=== PATIENT | male | born 1950 | race Caucasian/White ===

== ENCOUNTER 2024-03-20 01:29 | Inpatient (IN) | payer MEDICARE, MEDICAID, SELFPAY ==
[2024-03-19 17:31] VITALS: BP 119/71
[2024-03-19 17:58] LABS: % Basophils 0.2 % (0-2); % Eosinophils 0.1 % (0-6); % Immature Granulocytes 0.6 % (0-0.5); % Lymphocytes 5.4 % (20.5-51.1); % Monocytes 3.4 % (1.7-9.3); % Neutrophils 90.3 % (42.2-75.2); Absolute Immature Granulocytes 0.1 10^3/uL (0-0.05); Absolute Monocytes 0.6 10^3/uL (0.1-0.6); Absolute Neutrophils 16.8 10^3/uL (1.4-6.5); Hematocrit 30.2 % (39.0-52.0); Hemoglobin 9.9 g/dL (13.0-18.0); Mean Corp Hgb Conc. 32.8 g/dL (33.0-37.0); Mean Corpuscular Hgb 24.3 pg (27.0-31.0); Mean Platelet Volume 10.2 fL (7.4-10.4); Nucleated Red Blood Cells % 0 % (-); Platelet Count 265 10^3/uL (130-400); Red Blood Cell Count 4.08 10^6/uL (4.70-6.10); Red Cell Dist. Width 21.5 % (11.5-14.5); White Blood Cell Count 18.6 10^3/uL (4.8-10.8)
[2024-03-19 18:04] LABS: ALT (SGPT) 14 U/L (0-50); AST (SGOT) 23 U/L (17-59); Albumin 3.9 g/dl (3.5-5.0); Alkaline Phosphatase 70 U/L (38-126); Blood Urea Nitrogen 33 mg/dl (9-20); Calcium 9.5 mg/dl (8.4-10.2); Carbon Dioxide 26 mmol/L (22-30); Chloride 104 mmol/L (98-107); Glucose 123 mg/dl (70-99); Lactic Acid 1.5 mmol/L (0.7-2.0); Lipase 18 U/L (23-300); Potassium 3.7 mmol/L (3.5-5.1); Sodium 137 mmol/L (135-145); Total Bilirubin 1.1 mg/dl (0.2-1.3); Total Protein 6.8 g/dl (6.3-8.2); eGFR > 60.00
[2024-03-19 20:12] VITALS: BMI 23.7
[2024-03-19] MEDS: NSS 1000 IV (20:14)
[2024-03-19] MEDS: OMNIPAQUE 50 ML PO (20:15)
[2024-03-19 20:24] VITALS: BP 129/79
--- NOTE | 2024-03-19 20:32 | ED.GENMED ---
History of Present Illness
General
Chief Complaint: Abdominal Pain
Source: patient
Exam Limitations: none
Time Seen by Provider: 03/19/24 19:52
History of Present Illness
History of Present Illness:
This is a 74 year old male that comes in with c/o RLQ pain. State that he has had RLQ pain for the last year. States that it has been going on since last Labor day a year ago. States that he has lost weight from 194 to 169. States that he is set up
at [facility] for surgery for his Achalasia. States that today the pain in the right lower abd got worse that he was unable to get OOB. States that he was Constipated and took MOM and he did have a BM. Denies any fever, chills, chest pain, SOB, nausea,
vomiting, diarrhea, headache, dizziness, urinary burning.
Past History
Past History
ED Past Medical History: Psychiatric (Depression)
ED Past Surgical History: Other (surgery for Achalasia, )
Social History
Tobacco: Non-smoker
Alcohol: Occasional
Personal:
Living: with family
Review of Systems
Review of Systems
All Other Systems: ROS reviewed and negative except as documented in HPI and ROS
Constitutional: Reports no symptoms; Denies fever or chills
EENT: Reports no symptoms
Respiratory: Reports no symptoms; Denies cough or trouble breathing
Cardiac: Reports no symptoms; Denies chest pain
ABD/GI: Reports abdominal pain; Denies nausea, vomiting or diarrhea
: Reports no symptoms; Denies dysuria, frequency or urgency
Musculoskeletal: Reports no symptoms
Skin: Reports no symptoms
Neurological: Reports no symptoms; Denies dizzy or headache
Psychiatric: Reports no symptoms
Phy Exam
General Physical Exam
General Presentation: no apparent distress
General age: appears stated age
General Skin: warm and dry
General Habitus: elderly
General Mental: alert
General Hydration: dry mucous membranes
ENT Exam
ENT Exam: TM's normal, pharynx normal and neck supple
Eye Exam
Eye Exam: EOMI
Cardiovascular Exam
Cardiovascular Exam: regular rate/rhythm and normal peripheral pulses
Pulmonary Exam
Pulmonary Exam: lungs clear, no respiratory distress, no rales, chest non tender, no crackles, no rhonchi, no wheezing and no cough
Gastrointestinal Exam
Gastrointestinal Exam: soft, no organomegaly, no pulsatile mass, non distended, tender (RLQ tenderness with palpation) and other (Hypoactive bowel sounds)
Musculoskeletal Exam
Musculoskeletal Exam: full ROM and no edema
Skin Exam
Skin Exam: warm/dry, no rash, no petechia and pallor
Psychiatric Exam
Psychiatric Exam: normal mood/affect
Course
Orders/Labs/Results
Orders:
Orders
03/19/24 17:41
Type+Screen Urgent
Complete Blood Count/With Diff Urgent
Comprehensive Metabolic Panel Urgent
Lactic Acid Urgent
Lipase Urgent
03/19/24 20:05
CT Abd/pel W Iv And Oral Contr Urgent
Comment:
Reason For Exam: Generalized abd pain
0.9% Sodium Chloride 1000 ml [Nss] 1,000 ml IV BOLUS
Iohexol [Omnipaque] See Protocol PO NOW STA
03/19/24 20:06
Urinalysis Reflex To Culture Urgent
Abnormal Lab Results
03/19/24
17:41
WBC 18.6 H 10^3/uL
(4.8-10.8)
RBC 4.08 L 10^6/uL
(4.70-6.10)
Hgb 9.9 L g/dL
(13.0-18.0)
Hct 30.2 L %
(39.0-52.0)
MCV 74.0 L fL
(80.0-94.0)
MCH 24.3 L pg
(27.0-31.0)
MCHC 32.8 L g/dL
(33.0-37.0)
RDW 21.5 H %
(11.5-14.5)
Abs Immat Gran (auto) 0.1 H 10^3/uL
(0-0.05)
Absolute Neuts (auto) 16.8 H 10^3/uL
(1.4-6.5)
Absolute Lymphs (auto) 1.0 L 10^3/uL
(1.2-3.4)
Immature Gran % 0.6 H %
(0-0.5)
Neutrophils % 90.3 H %
(42.2-75.2)
Lymphocytes % 5.4 L %
(20.5-51.1)
BUN 33 H mg/dl
(9-20)
Glucose 123 H mg/dl
(70-99)
Lipase 18 L U/L
(23-300)
03/19/24 17:41
03/19/24 17:41
Leukocytosis, H/H low Anemia, Dehydration. Glucose nonfasting. Lipase low. Lactic acid normal at 1.5
Vital Signs
Initial and Last Documented VS:
Initial Vital Signs
Temp Pulse Resp BP Pulse Ox
100.3 F 104 20 119/71 96
03/19/24 17:31 03/19/24 17:31 03/19/24 17:31 03/19/24 17:31 03/19/24 17:31
Last Documented Vital Signs
Temp Pulse Resp BP Pulse Ox
100.3 F 98 19 143/76 94
03/19/24 17:31 03/19/24 22:00 03/19/24 22:00 03/19/24 22:00 03/19/24 22:00
MDM/Problems Addressed
Differential Diagnosis Includes:
Appendicitis,
MDM/Problems Addressed:
This is a 73 year old male that comes in with c/o RLQ pain. States that he has had pain for a year but today the pain got worse.
Will get labs, CT scan, IV fluids
CT cont- evidence for small bowel obstruction, as administered oral contrast has reached the cecum. There is no evidence of free intraperitoneal air. There is no evidence of pneumatosis. There is no evidence for portal vein gas. Cholelithiasis,
Small foci of air within the gallbladder lumen are likely related to gallstones. NO evidence for biliary ductal dilation. Small fat-containing umbilical hernia which also contains fluid, but no evidence for bowel within this umbilical hernia. 2mm
nephrolith within the mid to lower right kidney. 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 There is fusion of the L4-5 disc space, which may be postsurgical.
Back into see patient. Will admit and start on IV antibiotic.
Chronic conditions affecting care:
achalasia
Acute Exacerbation and/or Progression of Chronic Illness:
NA
*Radiology
Radiology exam reviewed: radiology read reviewed (CT-As described, findings in the rectum and distal sigmoid colon suggesting colitis, and stercoral colitis would be the leading consideration. Infectious colitis could also have this appearance.
Ischemic colitis could be considered, but felt to be less likely. There is a tortuous and elongated ), all reviewed NAD by ED Provider (CT cont-elongated sigmoid coln which extends into the anterior abd, with distention of this sigmoid coln with
stool and air, measuring up to 106cm in transverse dimension. There is also tortuosity of the sigmoid colon within the lower abd as it extends toward the descending colon, but no evidence) and other (CT cont-no evidence of a focal narrowing to
suggest sigmoid volvulus. Distention of the sigmoid colon is left to most likely be on the basis of stool. Thickened small bowel loops in the left pelvis, left to most likely be reactive enteritis adjacent to the sigmoid colon and rectum. There is
no )
*Pulse Oximetry
Patient hypoxic: no
*EKG
Interpreted by ED Provider?: NA
Rate: EKG- N/A
*Staffing Account Manager Interpretation
Rate: normal
Heart Rate: 92
Rhythm: sinus
*Critical Care Note
Total Time (30-74mins, 75-104mins- exclusive of procedures): Not Applicable
ED Attending Note
-
Portions of this chart may have been created with voice recognition software.� Occasional wrong word or��sound alike� substitutions may have occurred due to the inherent limitations of voice recognition software.
Discharge Plan
Departure
Patient Disposition: Admit
Date of Disposition: 03/19/24
Time of Disposition: 23:48
Admit to: Med/Surg
Presentation/result/management discussed w/ accepting MD/DO: Hospitalist
Patient with high blood pressure during this ER visit?: Yes
Condition: Good
Covid-19: Not Applicable
Discharge Problem:
Abdominal pain, Colitis
Prescriptions:
No Action
sertraline 100 mg Tablet
100 mg PO HS
Theragen Tablet
1 tab PO DAILY
lorazepam 0.5 mg Tablet
0.5 mg PO HS
mirtazapine 30 mg Tablet
30 mg PO DAILY
cholecalciferol (vitamin D3) [Vitamin D3] 10 mcg (400 unit) Tablet
10 mcg PO DAILY
dextroamphetamine-amphetamine 25 mg capsule,extended release 24hr
25 mg PO DAILY
quetiapine 400 mg Tablet
400 mg PO HS
esomeprazole magnesium 20 mg Tablet,Delayed Release (Dr/Ec)
20 mg PO DAILY
Referrals:
Juan Daniel Torres MD [Family Provider] -
Interventions
Interventions:
*Risk Screen - Suicide Last Done: 03/19/24 17:31
*General Assessment Last Done: 03/19/24 17:31
*Neglect/Abuse Screening Last Done: 03/19/24 17:31
ED- Fall Risk Assessment Last Done: 03/19/24 20:13
DM-Rhwqlj-Mrhjzrehcz Assessment Last Done: 03/19/24 20:25
Discharge Date and Time
Print Language: AUSTRALIAN
[2024-03-19 21:00] VITALS: BP 134/70
[2024-03-19 22:00] VITALS: BP 143/76
[2024-03-19 23:00] VITALS: BP 130/71
[2024-03-20] VITALS (17 sets, daily range): BP systolic 116–143; BP diastolic 68–87; PULSE 94–100; O2SAT 94
[2024-03-20] MEDS: ZOSYN 50 IV ×5 (00:09→23:44)
[2024-03-20] MEDS: DILAUDID 0.5 MG IV (00:25)
--- NOTE | 2024-03-20 01:08 | HPS.HSE ---
Addendum entered and electronically signed by Kar Herrmann DO 03/20/24 05:13:
Attempted disimpaction in the ED. Rectal exam with no stool appreciated in the vault - impaction too proximal to be affected.
Continue bowel regimen, abx, etc and follow for clinical results.
Original Note:
Family Physician
-
Family Physician: Juan Daniel Torres
Chief Complaint
-
Abd Pain
History of Present Illness
Patient is a 73y M with PMH significant for achalasia and depression who presents to ED complaining of abdominal pain. Patient states that he has had his current episode of lower abdominal pain for about 4-5 days. He states that he has had
significant difficulty having a BM. He started taking MOM twice daily several days ago and has had a few, small, liquid stools since. He states that he had a very small amount of soft stool yesterday. His pain has gradually increased in the past
several days. He denies any fevers / chills. He has noted no blood in the stool. No urinary complaints. He states that he had similar symptoms about one year ago that were alleviated by disimpaction.
Patient has achalasia and is followed at [facility] where he is tentatively scheduled for a surgical procedure in April.
Medical History
Past Medical History
Past Medical History: Reports Other
Additional Past Medical History:
Achalasia
GERD
Depression
Past Surgical History: Reports None and Other
Social History
Tobacco: Non-smoker
Alcohol: Occasional (Rare)
Drug: None
Family History
Family History: Not pertinent
Allergies / Home Medications
Allergies reflects when Allergies were last updated in [email or web address].
Home Medications with original date entered in [email or web address]
Allergy/Medication List:
Allergies
Allergy/AdvReac Type Severity Reaction Status Date / Time
No Known Allergies Allergy Verified 03/19/24 20:12
Home Medications
cholecalciferol (vitamin D3) 10 mcg (400 unit) tablet (Vitamin D3) 10 mcg PO DAILY 03/19/24
dextroamphetamine-amphetamine ER 25 mg 24hr capsule,extend release 25 mg PO DAILY 03/19/24
esomeprazole magnesium 20 mg tablet,delayed release 20 mg PO DAILY 03/19/24
lorazepam 0.5 mg tablet 0.5 mg PO HS 03/19/24
mirtazapine 30 mg tablet 30 mg PO DAILY 03/19/24
quetiapine 400 mg tablet 400 mg PO HS 03/19/24
sertraline 100 mg tablet 100 mg PO HS 03/19/24
therapeutic multivitamin 1 tab PO DAILY 03/19/24
Review of Systems
-
History Source: Patient
A 12 point ROS was completed and negative except as noted: Yes
Constitutional: Denies Fever or Chills
Respiratory: Denies Cough or Trouble Breathing
Cardiac: Denies Chest Pain or Palpitations
Abdomen/GI: Reports Abdominal Pain and Constipated; Denies Nausea, Vomiting, Bloody Stools or Black Stools
: Denies Dysuria, Frequency or Flank Pain
Musculoskeletal: Denies Joint Pain or Edema
Neurological: Reports Weakness; Denies Dizzy or Headache
Psych: Reports Depression and Anxiety
Physical Exam
Vital Signs
Vital Signs
Temp Pulse Resp BP Pulse Ox
100.3 F 94 26 136/75 91
03/19/24 17:31 03/20/24 00:00 03/20/24 00:00 03/20/24 00:00 03/20/24 00:00
Physical Exam
General: Other (Thin, frail 73y M in no acute distress.)
HEENT: Moist mucous membranes and PERRLA
Respiratory: Clear; No Wheezes, Rales or Rhonchi
Cardiac: S1/S2 and Regular Rhythm; No Murmur
GI: Soft, Non Distended, Normal Bowel Sounds and Other (Umbilical hernia that feels firm but is not tender. Patient states unchanged. Pos tenderness lower abdomen with voluntary guarding. )
Musculoskeletal: No Clubbing, No Cyanosis and No Edema
Neuro: AO x 3
Laboratory Results
-
03/19/24 17:41
03/19/24 17:41
Laboratory Results
Lactic Acid 1.5 mmol/L (0.7-2.0) 03/19/24 17:41
Total Bilirubin 1.1 mg/dl (0.2-1.3) 03/19/24 17:41
AST 23 U/L (17-59) 03/19/24 17:41
ALT 14 U/L (0-50) 03/19/24 17:41
Alkaline Phosphatase 70 U/L (38-126) 03/19/24 17:41
Lipase 18 U/L (23-300) L 03/19/24 17:41
Impression/Plan
-
A/P: Patient is a 73y M with PMH significant for depression and achalasia who presents to ED complaining of abdominal pain x 5 days.
Stercoral Colitis
- Admit for further evaluation and treatment.
- Will attempt disimpaction in the ED and follow for results.
- Bowel regimen including daily MiraLax and enemas.
- IVF support, IV abx for now.
- Follow for clinical improvement.
Achalasia
GERD
- No current / acute symptoms in this regard.
- Continue daily PPI.
- Follow-up with team at [facility] as planned after discharge.
Depression
- Stable. Continue majority of psychotropic medications during hospital stay.
DVT Prophylaxis: SCDs
Code Status: Full
[2024-03-20] MEDS: LR 1000 IV ×3 (01:50→23:44)
[2024-03-20] MEDS: ATIVAN 0.5 MG PO ×2 (02:42→21:54)
[2024-03-20 06:24] LABS: Hematocrit 27.4 % (39.0-52.0); Mean Corp Hgb Conc. 32.8 g/dL (33.0-37.0); Mean Corpuscular Hgb 24.2 pg (27.0-31.0); Mean Corpuscular Volume 73.7 fL (80.0-94.0); Mean Platelet Volume 9.9 fL (7.4-10.4); Platelet Count 247 10^3/uL (130-400); Red Blood Cell Count 3.72 10^6/uL (4.70-6.10); Red Cell Dist. Width 22.2 % (11.5-14.5); White Blood Cell Count 16.6 10^3/uL (4.8-10.8)
[2024-03-20 06:34] LABS: Blood Urea Nitrogen 29 mg/dl (9-20); Calcium 8.8 mg/dl (8.4-10.2); Carbon Dioxide 23 mmol/L (22-30); Chloride 104 mmol/L (98-107); Estimated Creatinine Clearance 66 ml/min; Glucose 110 mg/dl (70-99); Potassium 3.5 mmol/L (3.5-5.1); Sodium 136 mmol/L (135-145); eGFR > 60.00
[2024-03-20 07:28] LABS: TSH Reflex To Free T4 2.22 uIU/ml (0.47-4.68)
[2024-03-20] MEDS: NSS (PRESERVATIVE FREE) 10 ML IV (08:31)
[2024-03-20] MEDS: MIRALAX 17 GRAMS PO (08:31)
[2024-03-20] MEDS: PROTONIX IV 40 MG IV (08:31)
[2024-03-20] MEDS: COLACE 100 MG PO (08:31)
--- NOTE | 2024-03-20 08:40 | EDRN ---
Pt received from previous RN AAOx3, VSS, IVF infusing, IV patent in R arm, lung sounds clear, active bowel sounds, no edema, NSR with PVCs, AM meds administered. Menu and phone provided for pt to order breakfast. Able to make needs known, call [facility]
within reach.
--- NOTE | 2024-03-20 12:21 | W.PN.HOSP.TC ---
Today's Communication/Plan
-
Monitor vital signs see plan
Continue laxatives
Trial of clears
Continue antibiotics
Nonbillable note
Assessment / Plan
Assessment / Plan
General: Other (Thin, frail 73y M in no acute distress.)
HEENT: Moist mucous membranes and PERRLA
Respiratory: Clear; No Wheezes, Rales or Rhonchi
Cardiac: S1/S2 and Regular Rhythm; No Murmur
GI: Soft, Non Distended, Normal Bowel Sounds and Other (Umbilical hernia that feels firm but is not tender. Patient states unchanged. Pos tenderness lower abdomen with voluntary guarding. )
Musculoskeletal: No Clubbing, No Cyanosis and No Edema
Neuro: AO x 3
Sepsis secondary to stercoral Colitis
ER physician Attempted disimpaction in the ED however stool appears to be more proximal
- Bowel regimen including daily MiraLax and enemas.
- IVF support, IV abx for now.
- Follow for clinical improvement.
Trial of clears
Achalasia
GERD
- No current / acute symptoms in this regard.
- Continue daily PPI.
- Follow-up with team at [facility] as planned after discharge.
Umbilical hernia
Patient has been following up with physician at [facility]
Depression
- Stable. Continue majority of psychotropic medications during hospital stay.
DVT Prophylaxis: SCDs
Code Status: Full
Anticipated Discharge: 24 - 48 hours
Subjective/Interval History
-
Date of Service: March 20, 2024
Denies nausea
Objective Data
-
Labs:
Laboratory Results
03/20/24
05:41
WBC 16.6 H
Hgb 9.0 L
Hct 27.4 L
Plt Count 247
Sodium 136
Potassium 3.5
Chloride 104
Carbon Dioxide 23
BUN 29 H
Creatinine 1.0
Glucose 110 H
Calcium 8.8
Vital Signs:
Vital Signs
Temp Pulse Resp BP Pulse Ox
99.4 F 97 24 128/77 94
03/20/24 07:08 03/20/24 10:00 03/20/24 10:00 03/20/24 10:00 03/20/24 11:00
I&O
03/19/24 03/20/24 03/21/24
06:59 06:59 06:59
Intake Total 450 / 450
Output Total 300 / 300
Balance 150 / 150
[2024-03-20] MEDS: COLACE PO (20:16)
[2024-03-20] MEDS: SENOKOT PO (21:00)
[2024-03-20] MEDS: ZOLOFT 100 MG PO (21:24)
[2024-03-20] MEDS: SEROQUEL 400 MG PO (21:24)
[2024-03-20] MEDS: REMERON 30 MG PO (21:54)
--- NOTE | 2024-03-21 01:14 | PTCARENOTE ---
pt refused tap water enema and all bowel regimen medications. continues to have bowel movements on BSC
pt with unsteady gait, getting up without ringing call [facility]. bed alarm activated for safety.
pt updated on plan of care
[2024-03-21 03:14] VITALS: BMI 24.0
[2024-03-21] MEDS: ZOSYN 50 IV ×3 (05:36→17:46)
[2024-03-21 06:51] LABS: % Basophils 0.2 % (0-2); % Eosinophils 0.8 % (0-6); % Immature Granulocytes 0.5 % (0-0.5); % Monocytes 6.5 % (1.7-9.3); Absolute Eosinophils 0.1 10^3/uL (0-0.7); Absolute Immature Granulocytes 0.1 10^3/uL (0-0.05); Absolute Lymphocytes 0.8 10^3/uL (1.2-3.4); Absolute Monocytes 0.8 10^3/uL (0.1-0.6); Absolute Neutrophils 9.8 10^3/uL (1.4-6.5); Hematocrit 23.8 % (39.0-52.0); Hemoglobin 7.7 g/dL (13.0-18.0); Mean Corp Hgb Conc. 32.4 g/dL (33.0-37.0); Mean Corpuscular Hgb 23.8 pg (27.0-31.0); Mean Corpuscular Volume 73.5 fL (80.0-94.0); Mean Platelet Volume 10.2 fL (7.4-10.4); Nucleated Red Blood Cells % 0 % (-); Platelet Count 210 10^3/uL (130-400); Red Blood Cell Count 3.24 10^6/uL (4.70-6.10); Red Cell Dist. Width 21.4 % (11.5-14.5); White Blood Cell Count 11.5 10^3/uL (4.8-10.8)
[2024-03-21 07:13] LABS: Blood Urea Nitrogen 21 mg/dl (9-20); Calcium 8.1 mg/dl (8.4-10.2); Carbon Dioxide 25 mmol/L (22-30); Chloride 106 mmol/L (98-107); Estimated Creatinine Clearance 73 ml/min; Glucose 119 mg/dl (70-99); Potassium 2.9 mmol/L (3.5-5.1); Sodium 135 mmol/L (135-145); eGFR > 60.00
[2024-03-21 07:34] VITALS: BP 135/70
[2024-03-21] MEDS: KCL 270 MEQ IV (09:13)
[2024-03-21] MEDS: NSS (PRESERVATIVE FREE) 10 ML IV (09:14)
[2024-03-21] MEDS: PROTONIX IV 40 MG IV (09:14)
[2024-03-21] MEDS: KCL 40 MEQ PO (09:14)
[2024-03-21] MEDS: MIRALAX 17 GRAMS PO (09:15)
[2024-03-21] MEDS: COLACE PO ×2 (09:15→09:34)
[2024-03-21 10:01] LABS: Iron < 20 ug/dl (49-181)
[2024-03-21 10:08] LABS: Total Iron Binding Capacity 233 ug/dl (261-462)
[2024-03-21 10:35] LABS: Ferritin 75.6 ng/ml (17.9-464.0)
[2024-03-21 10:43] LABS: Urine Albumin Trace (Neg - Trace); Urine Bilirubin Negative (Negative); Urine Character Clear (Clear); Urine Color Yellow; Urine Glucose Negative (Negative); Urine Ketone Negative (Negative); Urine Leukocyte Negative (Negative); Urine Nitrite Negative (Negative); Urine Occult Blood Negative (Negative); Urine Urobilinogen Negative (Neg - 1+)
[2024-03-21 11:06] LABS: Folate > 20.0 ng/ml (2.76-20); Vitamin B12 862 pg/ml (239-931)
--- NOTE | 2024-03-21 12:29 | W.PN.HOSP.TC ---
Addendum entered and electronically signed by Luis Kapadia MD 03/21/24 12:34:
Anemia, likely anemia of chronic disease
Some low hemoglobin secondary to dilution
Check iron panel, B12, folate
Original Note:
Today's Communication/Plan
-
Monitor vital signs and see plan
Continue laxatives
Advance diet
Continue antibiotics
Assessment / Plan
Assessment / Plan
General: Other (Thin, frail 73y M in no acute distress.)
HEENT: Moist mucous membranes and PERRLA
Respiratory: Clear; No Wheezes, Rales or Rhonchi
Cardiac: S1/S2 and Regular Rhythm; No Murmur
GI: Soft, Non Distended, Normal Bowel Sounds and Other (Umbilical hernia that feels firm but is not tender. Patient states unchanged. Pos tenderness lower abdomen with voluntary guarding. )
Musculoskeletal: No Clubbing, No Cyanosis and No Edema
Neuro: AO x 3
Sepsis secondary to stercoral Colitis
ER physician Attempted disimpaction in the ED however stool appears to be more proximal
- Bowel regimen including daily MiraLax and enemas.
- IVF support, IV abx for now.
- Follow for clinical improvement.
Switch to low residue
Achalasia
GERD
- No current / acute symptoms in this regard.
- Continue daily PPI.
- Follow-up with team at [facility] as planned after discharge.
Umbilical hernia
Patient has been following up with physician at [place]
Depression
- Stable. Continue majority of psychotropic medications during hospital stay.
DVT Prophylaxis: SCDs
Code Status: Full
Anticipated Discharge: 24 - 48 hours
Subjective/Interval History
-
Date of Service: March 21, 2024
denies pain
Objective Data
-
Labs:
Laboratory Results
03/21/24
06:16
WBC 11.5 H
Hgb 7.7 L
Hct 23.8 L
Plt Count 210
Sodium 135
Potassium 2.9 L
Chloride 106
Carbon Dioxide 25
BUN 21 H
Creatinine 0.9
Glucose 119 H
Calcium 8.1 L
Vital Signs:
Vital Signs
Temp Pulse Resp BP Pulse Ox
98.4 F 83 16 135/70 93
03/21/24 07:34 03/21/24 07:34 03/21/24 07:34 03/21/24 07:34 03/21/24 07:34
I&O
03/20/24 03/21/24 03/22/24
06:59 06:59 06:59
Intake Total 450 / 450 1580 / 1580
Output Total 300 / 300
Balance 150 / 150 1580 / 1580
[2024-03-21] MEDS: LR IV (13:20)
[2024-03-21 14:43] VITALS: BP 119/63
[2024-03-21] MEDS: REMERON 30 MG PO (20:49)
[2024-03-21] MEDS: SEROQUEL 400 MG PO (20:49)
[2024-03-21] MEDS: ZOLOFT 100 MG PO (20:49)
[2024-03-21] MEDS: COLACE 100 MG PO (20:51)
[2024-03-21] MEDS: SENOKOT 17.2 MG PO (20:51)
[2024-03-21 23:06] VITALS: BP 114/68
[2024-03-22] MEDS: ZOSYN 50 IV ×4 (00:06→17:35)
[2024-03-22 06:00] VITALS: BMI 24.1
[2024-03-22 07:46] VITALS: BP 137/83
[2024-03-22] MEDS: NSS (PRESERVATIVE FREE) 10 ML IV (08:27)
[2024-03-22] MEDS: PROTONIX IV 40 MG IV (08:28)
[2024-03-22] MEDS: COLACE 100 MG PO ×2 (08:28→21:58)
[2024-03-22] MEDS: MIRALAX 17 GRAMS PO (08:28)
[2024-03-22 09:58] LABS: Blood Urea Nitrogen 18 mg/dl (9-20); Calcium 8.6 mg/dl (8.4-10.2); Carbon Dioxide 25 mmol/L (22-30); Chloride 109 mmol/L (98-107); Estimated Creatinine Clearance 82 ml/min; Glucose 117 mg/dl (70-99); Potassium 3.3 mmol/L (3.5-5.1); Sodium 139 mmol/L (135-145); eGFR > 60.00
[2024-03-22] MEDS: KCL 40 MEQ PO (10:24)
--- NOTE | 2024-03-22 11:03 | W.PN.HOSP.TC ---
Today's Communication/Plan
-
monitor vitals
see plan
now continues to have BM's
cw abx
likely dc today or tomorrow
Assessment / Plan
Assessment / Plan
General: Other (Thin, frail 73y M in no acute distress.)
HEENT: Moist mucous membranes and PERRLA
Respiratory: Clear; No Wheezes, Rales or Rhonchi
Cardiac: S1/S2 and Regular Rhythm; No Murmur
GI: Soft, Non Distended, Normal Bowel Sounds and Other (Umbilical hernia that feels firm but is not tender. Patient states unchanged)
Musculoskeletal: No Clubbing, No Cyanosis and No Edema
Neuro: AO x 3
Sepsis secondary to stercoral Colitis
ER physician Attempted disimpaction in the ED however stool appears to be more proximal
- Bowel regimen including daily MiraLax and enemas.
- IVF support, IV abx for now.
- Follow for clinical improvement.
Switch to low residue
Achalasia
GERD
- No current / acute symptoms in this regard.
- Continue daily PPI.
- Follow-up with team at [facility] as planned after discharge.
Umbilical hernia
Patient has been following up with physician at [place]
Depression
- Stable. Continue majority of psychotropic medications during hospital stay.
DVT Prophylaxis: SCDs
Code Status: Full
Anticipated Discharge: Within 24 hours
Subjective/Interval History
-
Date of Service: March 22, 2024
denies nausea
Objective Data
-
Labs:
Laboratory Results
03/22/24
08:44
WBC Pending
Hgb Pending
Hct Pending
Plt Count Pending
Sodium 139
Potassium 3.3 L
Chloride 109 H
Carbon Dioxide 25
BUN 18
Creatinine 0.8
Glucose 117 H
Calcium 8.6
Vital Signs:
Vital Signs
Temp Pulse Resp BP Pulse Ox
98.3 F 81 16 137/83 93
03/22/24 07:46 03/22/24 07:46 03/22/24 07:46 03/22/24 07:46 03/22/24 07:46
I&O
03/21/24 03/22/24 03/23/24
06:59 06:59 06:59
Intake Total 1580 / 1580 630 / 630
Balance 1580 / 1580 630 / 630
[2024-03-22 12:19] LABS: % Basophils 0.2 % (0-2); % Eosinophils 1.6 % (0-6); % Immature Granulocytes 0.5 % (0-0.5); % Lymphocytes 9.5 % (20.5-51.1); % Monocytes 6.7 % (1.7-9.3); % Neutrophils 81.5 % (42.2-75.2); Absolute Eosinophils 0.2 10^3/uL (0-0.7); Absolute Immature Granulocytes 0.1 10^3/uL (0-0.05); Absolute Lymphocytes 1.1 10^3/uL (1.2-3.4); Absolute Monocytes 0.7 10^3/uL (0.1-0.6); Absolute Neutrophils 9.1 10^3/uL (1.4-6.5); Hematocrit 29.2 % (39.0-52.0); Hemoglobin 9.5 g/dL (13.0-18.0); Mean Corp Hgb Conc. 32.5 g/dL (33.0-37.0); Mean Corpuscular Hgb 24.2 pg (27.0-31.0); Mean Corpuscular Volume 74.3 fL (80.0-94.0); Mean Platelet Volume 10.1 fL (7.4-10.4); Nucleated Red Blood Cells % 0 % (-); Platelet Count 240 10^3/uL (130-400); Red Blood Cell Count 3.93 10^6/uL (4.70-6.10); Red Cell Dist. Width 21.6 % (11.5-14.5); White Blood Cell Count 11.1 10^3/uL (4.8-10.8)
--- NOTE | 2024-03-22 13:22 | CM ---
CM following re: discharge planning.
Reviewed pt's chart, met with pt.
Pt is a 73 year old male, admitted with primary dx of Stercoral Colitis`.
Pt reports he lives alone in a 2SH, 1 step to enter, has supportive brother, has no children, has a cat. Pt described himself as independent in all areas [employer]. No DME, VN or SNF history.
PCP: Juan Daniel Torres
Pharmacy: [facility]
D/C plan: home with anticipated no needs.
CM will follow with discharge plan updates as hospitalization progresses
[2024-03-22 15:41] VITALS: BP 138/91
[2024-03-22] MEDS: SEROQUEL 400 MG PO (21:57)
[2024-03-22] MEDS: ZOLOFT 100 MG PO (21:58)
[2024-03-22] MEDS: REMERON 30 MG PO (21:58)
[2024-03-22] MEDS: SENOKOT 17.2 MG PO (21:58)
[2024-03-22 23:00] VITALS: BP 142/85; BP 155/93; BP 158/96; PULSE 101; PULSE 88; PULSE 95
[2024-03-23] VITALS (10 sets, daily range): BP systolic 107–147; BP diastolic 68–88; PULSE 77–96; O2SAT 99; BMI 24.0
--- NOTE | 2024-03-23 00:04 | PTCARENOTE ---
Patient with temp of 100.4 at this time, asymptomatic but does state he generally does not feel well. Patient has become increasingly weak, and has been having significantly more abdominal pain today as compared to yesterday 03/21 and overnight last
night. Tylenol parameters for fever >101. Patient resting in bed, call [facility] within reach. Will continue to monitor.
[2024-03-23] MEDS: ZOSYN 50 IV ×5 (01:00→23:34)
[2024-03-23] MEDS: PROTONIX 40 MG PO (10:27)
[2024-03-23] MEDS: MIRALAX 17 GRAMS PO (10:27)
[2024-03-23] MEDS: COLACE 100 MG PO ×2 (10:28→20:31)
[2024-03-23 10:44] LABS: % Basophils 0.4 % (0-2); % Eosinophils 1.1 % (0-6); % Immature Granulocytes 0.9 % (0-0.5); % Lymphocytes 12.5 % (20.5-51.1); % Neutrophils 78.1 % (42.2-75.2); Absolute Eosinophils 0.1 10^3/uL (0-0.7); Absolute Immature Granulocytes 0.1 10^3/uL (0-0.05); Absolute Lymphocytes 1.3 10^3/uL (1.2-3.4); Absolute Monocytes 0.7 10^3/uL (0.1-0.6); Absolute Neutrophils 7.8 10^3/uL (1.4-6.5); Hematocrit 25.8 % (39.0-52.0); Hemoglobin 8.7 g/dL (13.0-18.0); Mean Corp Hgb Conc. 33.7 g/dL (33.0-37.0); Mean Corpuscular Hgb 24.5 pg (27.0-31.0); Mean Corpuscular Volume 72.7 fL (80.0-94.0); Nucleated Red Blood Cells % 0 % (-); Platelet Count 200 10^3/uL (130-400); Red Blood Cell Count 3.55 10^6/uL (4.70-6.10); Red Cell Dist. Width 21.2 % (11.5-14.5)
[2024-03-23 10:50] LABS: Blood Urea Nitrogen 18 mg/dl (9-20); Calcium 8.4 mg/dl (8.4-10.2); Carbon Dioxide 19 mmol/L (22-30); Chloride 112 mmol/L (98-107); Estimated Creatinine Clearance 82 ml/min; Glucose 96 mg/dl (70-99); Potassium 3.2 mmol/L (3.5-5.1); Sodium 139 mmol/L (135-145); eGFR > 60.00
--- NOTE | 2024-03-23 11:14 | W.PN.HOSP.TC ---
Addendum entered and electronically signed by Luis Kapadia MD 03/23/24 12:28:
Spoke with surgery. Patient will likely need colonic decompression. Consulted GI.
Original Note:
Today's Communication/Plan
-
Monitor vital signs see plan
Consult surgery, n.p.o.
Continue antibiotics and check blood culture
Check UA
Replete potassium
Assessment / Plan
Assessment / Plan
General: Other (Thin, frail 73y M in no acute distress.)
HEENT: Moist mucous membranes and PERRLA
Respiratory: Clear; No Wheezes, Rales or Rhonchi
Cardiac: S1/S2 and Regular Rhythm; No Murmur
GI: Soft, Non Distended, Normal Bowel Sounds and Other (Umbilical hernia that feels firm but is not tender. Patient states unchanged)
Musculoskeletal: No Clubbing, No Cyanosis and No Edema
Neuro: AO x 3
Sepsis secondary to stercoral Colitis
ER physician Attempted disimpaction in the ED however stool appears to be more proximal
- Bowel regimen; refusing enema
- IVF support, IV abx for now.
- Follow for clinical improvement.
now NPO
Increased abdominal pain overnight, obstruction series today with severely dilated loop of colon projecting over the upper abdomen consistent with nondistended, redundant sigmoid colon on prior CT. Multiple dilated loops of small bowel projecting
over the abdomen which is suggestive of obstruction.
Surgery consulted. NPO. currently not vomiting
Fever 8/3
Check blood culture
No cough
Check UA
Hypokalemia
replete
Achalasia
GERD
- No current / acute symptoms in this regard.
- Continue daily PPI.
- Follow-up with team at [facility] as planned after discharge.
Suspect chronic anemia
Monitor
Umbilical hernia
Patient has been following up with physician at [place]
Depression
- Stable. Continue majority of psychotropic medications during hospital stay.
DVT Prophylaxis: SCDs,lovenox
Code Status: Full
I spent a total of 52 minutes with the patient or on the floor. More than 50% of this time involved counseling and coordination of care.
Anticipated Discharge: > 48 hours
Subjective/Interval History
-
Date of Service: March 23, 2024
Has pain this morning
Objective Data
-
Labs:
Laboratory Results
03/23/24
10:21
WBC 10.0
Hgb 8.7 L
Hct 25.8 L
Plt Count 200
Sodium 139
Potassium 3.2 L
Chloride 112 H
Carbon Dioxide 19 L
BUN 18
Creatinine 0.8
Glucose 96
Calcium 8.4
Vital Signs:
Vital Signs
Temp Pulse Resp BP Pulse Ox
98.2 F 86 16 116/68 94
03/23/24 07:30 03/23/24 07:30 03/23/24 07:30 03/23/24 07:30 03/23/24 07:30
I&O
03/22/24 03/23/24 03/24/24
06:59 06:59 06:59
Intake Total 630 / 630 1240 / 1240
Balance 630 / 630 1240 / 1240
[2024-03-23] MEDS: KCL 270 MEQ IV (12:18)
--- NOTE | 2024-03-23 12:30 | PTCARENOTE ---
Pt placed on tele per hospital policy for Sharyn prescott.
--- NOTE | 2024-03-23 13:44 | CON.GS ---
Addendum entered and electronically signed by Jose Charles MD 03/23/24 15:14:
Patient seen and examined with nurse practitioner. Agree with documented consultation consistent with my simultaneous examination and evaluation.
Brief HPI: 73-year-old male with medical history of GERD, major depressive disorder, achalasia, chronic intermittent constipation and previous history of impaction who presents to the emergency department secondary to abdominal pain and worsening
bowel habits.
Patient has been experiencing localized tenderness at a previous umbilical hernia site which has become progressively red inflamed and swollen. He is unsure of how long these his symptoms have been present. From a bowel standpoint similarly he has
had difficulty managing his bowels taking laxatives and he has only been able to pass small liquid stools with moderate generalized abdominal distention. No nausea, no vomiting. His appetite is generally always reduced.
Past medical history as outlined above as well as past surgical history.
AFVSS
NAD AAOx3 comfortable appearing lying in hospital bed and present for history taking
ABD: Erythematous distended umbilicus exquisitely tender to touch and warm. Consistent with probable incarcerated umbilical hernia which also has an associated cellulitis. Abdomen is otherwise moderately distended but soft. No tenderness on
palpation of remaining abdomen. No rebound rigidity or guarding outside of the localized tenderness at his umbilicus.
Rectal examination deferred
CT imaging reviewed. Fluid-filled umbilical hernia no visceral contents. Hyperemia in the area. Fascial defect at the umbilical hernia only about 1 cm. Severely distended sigmoid colon with surrounding inflammatory changes at the rectosigmoid
junction and a bit onto the distal sigmoid rather significant stool and fecal burden within the sigmoid colon and more proximally but without abrupt transition point, volvulus or bowel compromise
Assessment/plan: 73-year-old male with a probable acutely infected/cellulitic incarcerated umbilical hernia. May have secondary obstipation versus fecal impaction with stercoral colitis. No radiographic evidence of sigmoid volvulus or advanced
ischemia. Abdominal examination outside of the umbilical region without peritoneal signs. White blood cell count normal at this point and remains afebrile with stable vitals therefore an intra-abdominal process such as colon perforation, advanced
ischemia or bowel compromise is unlikely.
Recommended acute management of the umbilical infection and hernia with surgical drainage, primary repair. While in the operating room would evaluate for possible recurrent impaction with exam under anesthesia, possible sigmoidoscopy with
disimpaction.
Anticipated operative procedures, potential operative findings and the management all fully reviewed in detail with the patient. Reviewed potential risks, benefits and alternative treatment options. Written informed consent was obtained.
Patient has been added onto the OR schedule for today.
N.p.o.
Zosyn
Await OR availability in the immediate future
Original Note:
Medical History
-
Chief Complaint: abdominal pain
History of Present Illness:
Mr Singh is a 73 yo male with a h/o achalasia for which he underwent a laparoscopic surgery for correction at [place] about 20 years ago with admission at [place] early this year for symptoms of recurrence as well as fecal impaction. He notes
at [place], he had a procedure under sedation for disimpaction. He reports a 30 lb weight loss since April due to difficulty swallowing and has now transitioned his care to [facility] with surgery planned this fall once again for management. He
notes that over the past month, his stools changed from solid to liquid and he has had worsening appetite and more bloating. He developed abdominal pain which caused him to present through the ED for evaluation. He doesn't remember the last time
he passed flatus but has been having some liquid stools after a larger stool after an enema was given on presentation. He has abdominal pain with movement but when he is still, the pain is not bothersome. He denies nausea or vomiting. He has
generalized tenderness but more so to the left abdomen and also exquisitely tender over an umbilical hernia where reddened and inflamed skin is present as well as edema. He is unsure how long the umbilical area has been this painful.
Past Medical History
Past Medical History: GERD, Psychiatric (Major depressive disorder) and Other (Achalasia)
Past Surgical History: Other (Laparoscopic procedure for achalasia approx 20 years ago)
Social History
Tobacco: Non-Smoker
Alcohol: Occasional
Living: With Family
Family History
Family History: Reviewed & Not Pertinent
Allergies / Home Medications
Allergy/AdvReac Type Severity Reaction Status Date / Time
No Known Allergies Allergy Verified 03/19/24 20:12
�Medication �Instructions �Recorded �Confirmed �Type
cholecalciferol (vitamin D3) 10 10 mcg PO DAILY Supplement 03/19/24 03/19/24 History
mcg (400 unit) tablet (Vitamin D3)
dextroamphetamine-amphetamine ER 25 mg PO DAILY Cough 03/19/24 03/19/24 History
25 mg 24hr capsule,extend release
esomeprazole magnesium 20 mg 20 mg PO DAILY Gastrointestinal 03/19/24 03/19/24 History
tablet,delayed release Issue
lorazepam 0.5 mg tablet 0.5 mg PO HS Sleep 03/19/24 03/19/24 History
mirtazapine 30 mg tablet 30 mg PO DAILY Mental 03/19/24 03/19/24 History
Health/Anxiety
quetiapine 400 mg tablet 400 mg PO HS Mental Health/Anxiety 03/19/24 03/19/24 History
sertraline 100 mg tablet 100 mg PO HS Depression 03/19/24 03/19/24 History
therapeutic multivitamin 1 tab PO DAILY Supplement 03/19/24 03/19/24 History
Review of Systems
-
History Source: Patient
All other systems: Negative unless noted
A 10 point review of systems was completed, and was negative except as per HPI.
Physical Exam
Vital Signs
Temp Pulse Resp BP Pulse Ox
98.2 F 86 16 116/68 94
03/23/24 07:30 03/23/24 07:30 03/23/24 07:30 03/23/24 07:30 03/23/24 07:30
03/22/24 03/23/24 03/24/24
06:59 06:59 06:59
Actual Weight 76.294 kg 75.778 kg
Body Mass Index (BMI) 24.0
Lab Results
03/23/24 10:21
03/23/24 10:21
WBC 10.0 10^3/uL (4.8-10.8) 03/23/24 10:21
Hgb 8.7 g/dL (13.0-18.0) L 03/23/24 10:21
Hct 25.8 % (39.0-52.0) L 03/23/24 10:21
Plt Count 200 10^3/uL (130-400) 03/23/24 10:21
Abs Immat Gran (auto) 0.1 10^3/uL (0-0.05) H 03/23/24 10:21
Neutrophils % 78.1 % (42.2-75.2) H 03/23/24 10:21
Physical Exam
General: Well Developed and No Apparent Distress
HEENT: Moist Mucous Membranes
Respiratory: Non Labored Respirations
GI: Soft, Tender (generalized L>R) and Other (Umbilical hernia with edema and erythema which is firm and tender)
Skin: Warm, Dry and Other (pale)
Neuro: Awake, Alert and AO x 3
Psych: Calm
Data Reviewed
-
Radiology: Image Personally Visualized and interpreted, Report Reviewed by me, Discussed with Physician, Discussed with Patient and Discussed with Family
CT Scan: Image Personally Visualized and interpreted, Report Reviewed by me, Discussed with Physician, Discussed with Patient and Discussed with Family
Labs: Labs Reviewed by me, Discussed with Physician, Discussed with Patient and Discussed with Family
Old Records: Reviewed
Assessment / Plan
-
Assessment:
73 yo male with a h/o achalasia s/p laparoscopic corrective procedure about 20 years ago (he is scheduled for a second surgery at [facility] in April) and prior episodes of fecal impaction presenting for abdominal pain and liquid stools x1 month.
Initial CT imaging reviewed with evidence of stercoral colitis as well as fluid containing umbilical hernia. There was a tortuous and elongated sigmoid colon with retained stool and air. He was given an enema on presentation with some passage of
stool since that time with po bowel regimen. Leukocytosis has resolved since presentation. But discomfort and anorexia has persisted. He denies n/v.
Follow up XR today with severely dilated loop of colon projecting over the upper abdomen. He has generalized tenderness to the abdomen with mild distention but no rebound, rigidity or guarding. There is an edematous umbilical hernia noted with
erythema which is severely tender and concerning for infectious process and possible abscess. He is afebrile with stable vital signs. Rectal exam deferred to the OR.
Plan:
He has been NPO, will continue
Plan OR for I&D of the infected/incarcerated umbilical hernia today
Continue ABX
Continue bowel regimen
--- NOTE | 2024-03-23 14:57 | W.SUR.PREOP ---
Pre-Operative Surgical Note
-
I have examined this patient prior to the performance of the scheduled procedure.
The patient's condition is unchanged from the time of the current History and
Physical and the patient is able to undergo the scheduled procedure.
--- NOTE | 2024-03-23 14:58 | PTCARENOTE ---
Rec'd from floor in bed, placed on product lister, oriented to surroundings by RN, IV R forearm with K rider appearing infiltrated, R forearm edematous and firm without redness IV infusion stopped, warm compress applied, IV team paged, to see pt
--- NOTE | 2024-03-23 15:17 | SUR.PHASEI ---
IV team in IV started L forearm randall well, IV 40 meq KCL in 250 NS restarted via IV pump at 67.5, randall well
--- NOTE | 2024-03-23 15:56 | W.PN.UPDATE ---
Update Note
Progress Note Update
I reviewed imaging with rads- all left sided (therefore not c/w Ogilve's). I was reached out by Dr. Charles he is taking him to the OR for incarcerated/infected umbilical hernia.
He will also do a quick rigid or flex to evaluate.
I will defer consult until tomorrow to see if GI assistance is needed after OR today.
I updated hospitalist.
--- NOTE | 2024-03-23 17:03 | W.IMMPOSTOP ---
Addendum entered and electronically signed by Jose Charles MD 03/23/24 17:53:
#[id number]
Original Note:
Surgical Immed Post Op Note
-
Primary Surgeon: Araceli
Assisting Surgeon: Serenity Bales NP
Pre-op Diagnosis: Incarcerated UH with cellulitis; obstipation with severely distended sigmoid colon
Post-op Diagnosis: Strangulated UH with abscess; probable ileus
Procedure Performed: open primary repair strangulated UH
EUA/rigid sigmoidoscopy
Anesthesia Type: General LMA + 1% lido/0.25% Marcaine
Specimen / Cultures: none/umbilical abscess cultures
Estimated Blood Loss: 6mL
Complications: none immediate
Operative Findings: Incarcerated and strangulated umbilical hernia containing preperitoneal fat. Abscess with purulent cavity in the central aspect of strangulated hernia contents. Umbilical fascial defect only 1 cm. Fascial defect locally
enlarged and confirm that there did not appear to be any intraperitoneal extension of infectious process nor peritoneal communication rather only incarcerated preperitoneal fat. Umbilical hernia primarily repaired with 0 PDS.
Digital rectal examination with liquid stool in vault. Rigid sigmoidoscopy evacuated residual stool. Mucosa otherwise appeared healthy and unremarkable. Within limits of evaluation of a rigid sigmoidoscopy there was no evidence of impaction,
mucosal abnormalities, masses or obstruction. Suspect change in bowel habits, loose stools are reflective of ileus in the setting of acute illness from strangulated umbilical hernia with abscess but will monitor postoperatively.
Updated patient's sister via phone call postoperatively
Plan: Clear liquid diet, continue bowel regiment, multimodal analgesics and attempt to minimize narcotics
Zosyn while awaiting operative culture results
Leave Telfa packing strips at umbilicus in place approximately 48 to 72 hours prior to removal
Will continue to follow
[2024-03-23] MEDS: NSS 1000 IV (17:20)
[2024-03-23] MEDS: LOVENOX 40 MG SC (18:07)
[2024-03-23] MEDS: REMERON 30 MG PO (22:26)
[2024-03-23] MEDS: ZOLOFT 100 MG PO (22:26)
[2024-03-23] MEDS: SEROQUEL 400 MG PO (22:26)
[2024-03-23] MEDS: SENOKOT 17.2 MG PO (22:27)
[2024-03-24] VITALS (7 sets, daily range): BP systolic 127–153; BP diastolic 74–84; BMI 24.2
[2024-03-24] MEDS: ZOSYN 50 IV ×4 (06:10→23:31)
[2024-03-24] MEDS: MIRALAX 17 GRAMS PO (08:24)
[2024-03-24] MEDS: PROTONIX IV 40 MG IV (08:24)
[2024-03-24] MEDS: COLACE 100 MG PO ×2 (08:24→22:13)
[2024-03-24] MEDS: NSS (PRESERVATIVE FREE) 10 ML IV (08:24)
--- NOTE | 2024-03-24 09:32 | W.PN.HOSP.TC ---
Today's Communication/Plan
-
clears
pain control
Assessment / Plan
Assessment / Plan
General: Other (Thin, frail 73y M in no acute distress.)
HEENT: Moist mucous membranes and PERRLA
Respiratory: Clear; No Wheezes, Rales or Rhonchi
Cardiac: S1/S2 and Regular Rhythm; No Murmur
GI: Soft, Non Distended, Normal Bowel Sounds and Other (Umbilical hernia that feels firm but is not tender. Patient states unchanged)
Musculoskeletal: No Clubbing, No Cyanosis and No Edema
Neuro: AO x [address] A/P
IMPRESSION: As described, findings in the rectum and distal sigmoid colon suggesting colitis, and stercoral colitis would be the leading consideration. Infectious colitis could also have this appearance. Ischemic colitis could be considered, but
felt to be less likely.
There is a tortuous and elongated sigmoid colon which extends into the anterior abdomen, with distention of the sigmoid colon with stool and air, measuring up to 10.6 cm in transverse dimension. There is also tortuosity of the sigmoid colon within
the lower abdomen as it extends toward the descending colon, but no evidence of a focal narrowing to suggest sigmoid volvulus. Distention of the sigmoid colon is felt to most likely be on the basis of stool.
Thickened small bowel loops in the left pelvis, felt to most likely be reactive enteritis adjacent to the sigmoid colon and rectum. There is no evidence for small bowel obstruction, as administered oral contrast has reached the cecum.
There is no evidence of free intraperitoneal air. There is no evidence of pneumatosis. There is no evidence for portal vein gas.
Cholelithiasis. Small foci of air within the gallbladder lumen are likely related to gallstones. No evidence for biliary ductal dilation.
Small fat-containing umbilical hernia which also contains fluid, but no evidence for bowel within this umbilical hernia.
2 mm nephrolith within the mid to lower right kidney.
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 There is fusion of the L4-5 disc space, which may be postsurgical.
Obstruction Series 03/23/24
IMPRESSION:
Severely dilated loop of colon projecting over the upper abdomen consistent with known distended, redundant sigmoid colon on prior CT. There are multiple dilated loops of small bowel projecting over the abdomen which is suggestive of obstruction
although findings are not significantly changed from prior CT which did not demonstrate a discrete obstruction and may be due to distal impaction.
Surgery 03/23/24
Pre-op Diagnosis: Incarcerated UH with cellulitis; obstipation with severely distended sigmoid colon
Post-op Diagnosis: Strangulated UH with abscess; probable ileus
Mr. Alton Singh is a 73 yo man with hx significant for achalasia, depression presents to the ER with abdominal pain and report of constipation, initially admitted for sepsis 2/2 sterocoral colitis with increasing pain revealing obstruction in
setting of incarcerated umbilical hernia.
Incarcerated Umbilical Hernia
-appreciate surgery
-s/p OR 03/23 - open primary repair of strangulated UH. EUA/ rigid sigmoidoscopy
-clear liquid diet
-IV Zosyn
-F/U intra-op cultures
-leave Telfa packing strips at umbilicus in place 48-72 hours
-PT/OT
Hypokalemia
replete
Achalasia
GERD
- No current / acute symptoms in this regard.
- Continue daily PPI.
- Follow-up with team at [place] as planned after discharge.
Suspect chronic anemia
Monitor
Depression
- Stable. Continue majority of psychotropic medications during hospital stay.
DVT Prophylaxis: SCDs, Lovenox
Code Status: Full
I spent a total of 52 minutes with the patient or on the floor. More than 50% of this time involved counseling and coordination of care.
Anticipated Discharge: > 48 hours
Subjective/Interval History
-
Date of Service: March 24, 2024
pain controlled
got up with PT yesterday
Objective Data
-
Labs:
Laboratory Results
03/24/24
09:24
WBC Pending
Hgb Pending
Hct Pending
Plt Count Pending
Sodium Pending
Potassium Pending
Chloride Pending
Carbon Dioxide Pending
BUN Pending
Creatinine Pending
Glucose Pending
Calcium Pending
Vital Signs:
Vital Signs
Temp Pulse Resp BP Pulse Ox
97.4 F 73 19 127/74 99
03/24/24 07:30 03/24/24 07:30 03/24/24 07:30 03/24/24 07:30 03/24/24 07:30
I&O
03/23/24 03/24/24 03/25/24
06:59 06:59 06:59
Intake Total 1240 / 1240 790 / 790
Output Total 525 / 525
Balance 1240 / 1240 265 / 265
Review of Systems
-
History Source: Patient
All other systems: Reviewed and negative
Physical Exam
-
General: No Apparent Distress
HEENT: PERRLA
Respiratory: Clear to Auscultation; Negative Wheezes
Cardiac: Regular Rhythm and S1/S2
GI: Other (surgical site covered in gauze c/d/i)
Musculoskeletal: No Edema
Skin: Warm and Dry; Negative Rash
Neuro: AO x 3
Psych: Calm
Data Reviewed
-
Diagnostic Radiology: Report Reviewed by me
Labs: Labs Reviewed by me
[2024-03-24 10:05] LABS: % Basophils 0.2 % (0-2); % Eosinophils 0.2 % (0-6); % Immature Granulocytes 1.1 % (0-0.5); % Lymphocytes 13.2 % (20.5-51.1); % Monocytes 5.2 % (1.7-9.3); % Neutrophils 80.1 % (42.2-75.2); Absolute Immature Granulocytes 0.1 10^3/uL (0-0.05); Absolute Lymphocytes 1.5 10^3/uL (1.2-3.4); Absolute Monocytes 0.6 10^3/uL (0.1-0.6); Absolute Neutrophils 8.8 10^3/uL (1.4-6.5); Hematocrit 28.2 % (39.0-52.0); Hemoglobin 9.1 g/dL (13.0-18.0); Mean Corp Hgb Conc. 32.3 g/dL (33.0-37.0); Mean Corpuscular Hgb 24.5 pg (27.0-31.0); Mean Corpuscular Volume 75.8 fL (80.0-94.0); Mean Platelet Volume 10.7 fL (7.4-10.4); Nucleated Red Blood Cells % 0 % (-); Platelet Count 290 10^3/uL (130-400); Red Blood Cell Count 3.72 10^6/uL (4.70-6.10); Red Cell Dist. Width 22.1 % (11.5-14.5)
--- NOTE | 2024-03-24 10:29 | W.PN.GS2 ---
Today's Communication / Plan
-
Continue clears
Continue ABX
Assessment / Plan
-
Mr. Singh is a 73 yo male with a h/o achalasia with upcoming surgery in April at [facility] for management who presented with abdominal pain with CT initially showing obstipation with fecal impaction and possible stercoral colitis. He was not
progressing on bowel regimen alone. Acutely infected/cellulitic strangulated umbilical hernia present containing fat but no viscera raising suspicion for ileus as the etiology of his bowel disfunction.
POD #1 Open primary repair of the UHR with drainage of abscess (cultures sent) and EUA/rigid sigmoidoscopy with evacuation of residual stool
AFVSS
Mild leukocytosis
Changed packing/dressing today
Pain improving. Await ROBF, tolerating clears
--Continue CLD with supplements
--Continue bowel regimen
--Local wound care preformed at bedside
--Continue ABX
--OR cx of abscess pending
Subjective Data
-
Date of Service: March 24, 2024
Patient seen and examined at bedside with Dr. Philip. Adorno n/v. Tolerating clears. Minimal abdominal discomfort. Has not passed a BM.
Objective Data
-
Intake and Output
03/23/24 03/24/24 03/25/24
06:59 06:59 06:59
Intake Total 1240 / 1240 790 / 790
Output Total 525 / 525
Balance 1240 / 1240 265 / 265
Intake:
Oral fluids 1080 / 1080 240 / 240
IV fluids (Total) 550 / 550
Normosol 50 / 50
IV piggybacks 160 / 160
Output:
Urine, Voided 525 / 525
Other:
Number of approximated SMALL 2
amounts of urine
Number of approximated LARGE 1
amounts of urine
Vital Signs
Temp Pulse Resp BP Pulse Ox
97.4 F 73 19 127/74 99
03/24/24 07:30 03/24/24 07:30 03/24/24 07:30 03/24/24 07:30 03/24/24 07:30
Lab Results
03/24/24 09:24
Calcium 8.4 mg/dl (8.4-10.2) 03/23/24 10:21
Total Bilirubin 1.1 mg/dl (0.2-1.3) 03/19/24 17:41
AST 23 U/L (17-59) 03/19/24 17:41
ALT 14 U/L (0-50) 03/19/24 17:41
Alkaline Phosphatase 70 U/L (38-126) 03/19/24 17:41
Total Protein 6.8 g/dl (6.3-8.2) 03/19/24 17:41
Albumin 3.9 g/dl (3.5-5.0) 03/19/24 17:41
Physical Exam
-
NAD
ABD soft, mild generalized tenderness (improved), mild to mod distention, no guarding/rebound/rigidity
Umbilical incision intact without erythema, thick drainage noted: jaida removed and packed with 1/2' iodoform gauze
[2024-03-24] MEDS: NSS 1000 IV ×2 (11:04→23:34)
[2024-03-24 11:37] LABS: Blood Urea Nitrogen 23 mg/dl (9-20); Calcium 8.7 mg/dl (8.4-10.2); Carbon Dioxide 24 mmol/L (22-30); Chloride 110 mmol/L (98-107); Estimated Creatinine Clearance 82 ml/min; Glucose 95 mg/dl (70-99); Potassium 3.8 mmol/L (3.5-5.1); Sodium 141 mmol/L (135-145); eGFR > 60.00
[2024-03-24] MEDS: TORADOL 10 MG IV (15:45)
[2024-03-24] MEDS: LOVENOX 40 MG SC (17:36)
[2024-03-24] MEDS: ATIVAN 0.5 MG PO (22:12)
[2024-03-24] MEDS: ZOLOFT 100 MG PO (22:13)
[2024-03-24] MEDS: SEROQUEL 400 MG PO (22:13)
[2024-03-24] MEDS: REMERON 30 MG PO (22:13)
[2024-03-25] VITALS (7 sets, daily range): BP systolic 135–170; BP diastolic 76–99; PULSE 78–97; BMI 24.7
[2024-03-25] MEDS: ZOSYN 50 IV ×4 (05:58→23:00)
[2024-03-25] MEDS: COLACE 100 MG PO ×2 (07:53→21:47)
[2024-03-25] MEDS: MIRALAX 17 GRAMS PO (07:53)
[2024-03-25] MEDS: PROTONIX IV 40 MG IV (07:54)
[2024-03-25] MEDS: NSS (PRESERVATIVE FREE) 10 ML IV (07:54)
[2024-03-25 08:02] LABS: % Basophils 0.3 % (0-2); % Eosinophils 1.9 % (0-6); % Immature Granulocytes 1.1 % (0-0.5); % Monocytes 4.6 % (1.7-9.3); % Neutrophils 78.1 % (42.2-75.2); Absolute Eosinophils 0.2 10^3/uL (0-0.7); Absolute Immature Granulocytes 0.1 10^3/uL (0-0.05); Absolute Lymphocytes 1.3 10^3/uL (1.2-3.4); Absolute Monocytes 0.4 10^3/uL (0.1-0.6); Absolute Neutrophils 7.4 10^3/uL (1.4-6.5); Hematocrit 28.4 % (39.0-52.0); Hemoglobin 9.1 g/dL (13.0-18.0); Mean Corpuscular Hgb 24.2 pg (27.0-31.0); Mean Corpuscular Volume 75.5 fL (80.0-94.0); Mean Platelet Volume 10.4 fL (7.4-10.4); Nucleated Red Blood Cells % 0 % (-); Platelet Count 321 10^3/uL (130-400); Red Blood Cell Count 3.76 10^6/uL (4.70-6.10); Red Cell Dist. Width 21.9 % (11.5-14.5); White Blood Cell Count 9.5 10^3/uL (4.8-10.8)
[2024-03-25 08:30] LABS: Blood Urea Nitrogen 17 mg/dl (9-20); Calcium 8.2 mg/dl (8.4-10.2); Carbon Dioxide 22 mmol/L (22-30); Chloride 110 mmol/L (98-107); Estimated Creatinine Clearance 82 ml/min; Glucose 83 mg/dl (70-99); Magnesium 1.9 mg/dl (1.6-2.3); Potassium 3.5 mmol/L (3.5-5.1); Sodium 142 mmol/L (135-145); eGFR > 60.00
--- NOTE | 2024-03-25 09:32 | W.PN.GS2 ---
Today's Communication / Plan
-
-- Local wound care
-- LRD
Assessment / Plan
-
Mr. Singh is a 73 yo male with a h/o achalasia with upcoming surgery in April at [facility] for management who presented with abdominal pain with CT initially showing obstipation with fecal impaction and possible stercoral colitis. He was not
progressing on bowel regimen alone. Acutely infected/cellulitic strangulated umbilical hernia present containing fat but no viscera raising suspicion for ileus as the etiology of his bowel disfunction.
POD #2 Open primary repair of the UHR with drainage of abscess (cultures sent) and EUA/rigid sigmoidoscopy with evacuation of residual stool
AFVSS
Leukocytosis resolved
Outter dressing changed, wound care orders for nursing placed
Pain improving. ROBFs
--LRD
--Continue bowel regimen
--Local wound care preformed at bedside
--Continue ABX
--F/u OR cx of abscess pending, no organisms
Subjective Data
-
Date of Service: March 25, 2024
Reports improved abdominal discomfort. Denies nausea or vomiting. Reports passing flatus and loose, nonbloody stools. Ambulating. Voiding. Afebrile.
Objective Data
-
Intake and Output
03/24/24 03/25/24 03/26/24
06:59 06:59 06:59
Intake Total 790 / 790 1080 / 1080
Output Total 525 / 525 200 / 200
Balance 265 / 265 880 / 880
Intake:
Oral fluids 240 / 240 1080 / 1080
IV fluids (Total) 550 / 550
Normosol 50 / 50
Output:
Urine, Voided 525 / 525 200 / 200
Other:
Number of approximated MODERATE 1
amounts of urine
Number of approximated LARGE 1
amounts of urine
Vital Signs
Temp Pulse Resp BP Pulse Ox
98.8 F 85 16 162/81 95
03/25/24 07:51 03/25/24 07:51 03/25/24 07:51 03/25/24 07:51 03/25/24 07:51
Lab Results
03/25/24 07:22
03/25/24 07:22
Calcium 8.2 mg/dl (8.4-10.2) L 03/25/24 07:22
Magnesium 1.9 mg/dl (1.6-2.3) 03/25/24 07:22
Total Bilirubin 1.1 mg/dl (0.2-1.3) 03/19/24 17:41
AST 23 U/L (17-59) 03/19/24 17:41
ALT 14 U/L (0-50) 03/19/24 17:41
Alkaline Phosphatase 70 U/L (38-126) 03/19/24 17:41
Total Protein 6.8 g/dl (6.3-8.2) 03/19/24 17:41
Albumin 3.9 g/dl (3.5-5.0) 03/19/24 17:41
Physical Exam
-
Gen: NAD
Abd: soft, tender overlying incision, minimal distension, non-peritoneal, dressing changes, incision c/d/i - no active drainage, no erythema or ecchymosis, jaida in place, gauze replaced
--- NOTE | 2024-03-25 10:58 | W.PN.HOSP.TC ---
Today's Communication/Plan
-
see plan
Assessment / Plan
Assessment / Plan
General: Other (Thin, frail 73y M in no acute distress.)
HEENT: Moist mucous membranes and PERRLA
Respiratory: Clear; No Wheezes, Rales or Rhonchi
Cardiac: S1/S2 and Regular Rhythm; No Murmur
GI: Soft, Non Distended, Normal Bowel Sounds and Other (Umbilical hernia that feels firm but is not tender. Patient states unchanged)
Musculoskeletal: No Clubbing, No Cyanosis and No Edema
Neuro: AO x [address] A/P
IMPRESSION: As described, findings in the rectum and distal sigmoid colon suggesting colitis, and stercoral colitis would be the leading consideration. Infectious colitis could also have this appearance. Ischemic colitis could be considered, but
felt to be less likely.
There is a tortuous and elongated sigmoid colon which extends into the anterior abdomen, with distention of the sigmoid colon with stool and air, measuring up to 10.6 cm in transverse dimension. There is also tortuosity of the sigmoid colon within
the lower abdomen as it extends toward the descending colon, but no evidence of a focal narrowing to suggest sigmoid volvulus. Distention of the sigmoid colon is felt to most likely be on the basis of stool.
Thickened small bowel loops in the left pelvis, felt to most likely be reactive enteritis adjacent to the sigmoid colon and rectum. There is no evidence for small bowel obstruction, as administered oral contrast has reached the cecum.
There is no evidence of free intraperitoneal air. There is no evidence of pneumatosis. There is no evidence for portal vein gas.
Cholelithiasis. Small foci of air within the gallbladder lumen are likely related to gallstones. No evidence for biliary ductal dilation.
Small fat-containing umbilical hernia which also contains fluid, but no evidence for bowel within this umbilical hernia.
2 mm nephrolith within the mid to lower right kidney.
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 There is fusion of the L4-5 disc space, which may be postsurgical.
Obstruction Series 8//24
IMPRESSION:
Severely dilated loop of colon projecting over the upper abdomen consistent with known distended, redundant sigmoid colon on prior CT. There are multiple dilated loops of small bowel projecting over the abdomen which is suggestive of obstruction
although findings are not significantly changed from prior CT which did not demonstrate a discrete obstruction and may be due to distal impaction.
Surgery 03/23/24
Pre-op Diagnosis: Incarcerated UH with cellulitis; obstipation with severely distended sigmoid colon
Post-op Diagnosis: Strangulated UH with abscess; probable ileus
Mr. Alton Singh is a 73 yo man with hx significant for achalasia, depression presents to the ER with abdominal pain and report of constipation, initially admitted for sepsis 2/2 sterocoral colitis with increasing pain revealing obstruction in
setting of incarcerated umbilical hernia.
Incarcerated Umbilical Hernia
-appreciate surgery
-s/p OR 03/23 - open primary repair of strangulated UH. EUA/ rigid sigmoidoscopy
-diet advanced
-IV Zosyn
-F/U intra-op cultures
-s/p bedside wound care by surgery this AM
-PT/OT
Hypokalemia
replete
Achalasia
GERD
- No current / acute symptoms in this regard.
- Continue daily PPI.
- Follow-up with team at [place] as planned after discharge.
Suspect chronic anemia
Monitor
Depression
- Stable. Continue majority of psychotropic medications during hospital stay.
DVT Prophylaxis: SCDs, Lovenox
Code Status: Full
I spent a total of 52 minutes with the patient or on the floor. More than 50% of this time involved counseling and coordination of care.
Anticipated Discharge: 24 - 48 hours
Subjective/Interval History
-
Date of Service: March 25, 2024
having BM
pain improving
advanced to solid food
got up with PT this AM
Objective Data
-
Labs:
Laboratory Results
03/25/24
07:22
WBC 9.5
Hgb 9.1 L
Hct 28.4 L
Plt Count 321
Sodium 142
Potassium 3.5
Chloride 110 H
Carbon Dioxide 22
BUN 17
Creatinine 0.8
Glucose 83
Calcium 8.2 L
Vital Signs:
Vital Signs
Temp Pulse Resp BP Pulse Ox
98.8 F 85 16 162/81 95
03/25/24 07:51 03/25/24 07:51 03/25/24 07:51 03/25/24 07:51 03/25/24 07:51
I&O
03/24/24 03/25/24 03/26/24
06:59 06:59 06:59
Intake Total 790 / 790 1080 / 1080
Output Total 525 / 525 200 / 200
Balance 265 / 265 880 / 880
Review of Systems
-
History Source: Patient
All other systems: Reviewed and negative
Physical Exam
-
General: No Apparent Distress
HEENT: PERRLA
Respiratory: Clear to Auscultation; Negative Wheezes
Cardiac: Regular Rhythm and S1/S2
GI: Other (surgical site covered in gauze c/d/i)
Musculoskeletal: No Edema
Skin: Warm and Dry; Negative Rash
Neuro: AO x 3
Psych: Calm
Data Reviewed
-
Diagnostic Radiology: Report Reviewed by me
Labs: Labs Reviewed by me
[2024-03-25] MEDS: NSS IV (12:31)
--- NOTE | 2024-03-25 16:13 | CM ---
Reviewed PT/progress notes, patient doing well in therapy. He would like to return home when medically cleared for discharge.
Plan: Case management will continue to follow and assist with discharge planning. Home when stable.
[2024-03-25] MEDS: LOVENOX 40 MG SC (17:08)
[2024-03-25] MEDS: REMERON 30 MG PO (21:48)
[2024-03-25] MEDS: ZOLOFT 100 MG PO (21:48)
[2024-03-25] MEDS: SEROQUEL 400 MG PO (21:48)
[2024-03-25] MEDS: ATIVAN 0.5 MG PO (22:19)
[2024-03-26 03:07] VITALS: BP 138/79
[2024-03-26] MEDS: ZOSYN 50 IV ×2 (05:59→11:41)
[2024-03-26 06:00] VITALS: BMI 24.4
[2024-03-26 07:00] VITALS: BP 144/82
--- NOTE | 2024-03-26 07:56 | W.PN.GS2 ---
Addendum entered and electronically signed by Vladimir Hood MD 03/26/24 12:34:
I saw and examined the patient.
The resident's note was reviewed and I agree with the note.
Comment: Improving. Wound with mild erythema, packing in place, no purulence; Will need VN for packing changes at home. Agree with DC on PO abx for another week. F/U info provided. All ?s answered.
Original Note:
Today's Communication / Plan
-
Continue wound care
clear for d/c from surgical standpoint
Assessment / Plan
-
Mr. Singh is a 73 yo male with a h/o achalasia with upcoming surgery in April at [facility] for management who presented with abdominal pain with CT initially showing obstipation with fecal impaction and possible stercoral colitis. He was not
progressing on bowel regimen alone. Acutely infected/cellulitic strangulated umbilical hernia present containing fat but no viscera raising suspicion for ileus as the etiology of his bowel disfunction.
POD #3 Open primary repair of the UHR with drainage of abscess (cultures sent) and EUA/rigid sigmoidoscopy with evacuation of residual stool
AFVSS
Pain improving. ROBFs
-Tolerating LRD
-Continue bowel regimen
-recommendation for VN on d/c for wound care
-ABX: IV zosyn day 7
-intra-op cultures show strep - can transition to Augmentin on DC
-clear for d/c from surgical standpoint
Time Spent
Total Time Spent with Patient (in minutes): 15
Subjective Data
-
Date of Service: March 26, 2024
Interval Events:
improving abdominal discomfort. Denies nausea or vomiting. Reports passing flatus and loose stools, nonbloody stools( 2 BM yesterday). Ambulating. Voiding. Afebrile.
Objective Data
-
Intake and Output
03/25/24 03/26/24 03/27/24
06:59 06:59 06:59
Intake Total 1080 / 1080 1140 / 1140
Output Total 200 / 200 250 / 250
Balance 880 / 880 890 / 890
Intake:
Oral fluids 1080 / 1080 1140 / 1140
Output:
Urine, Voided 200 / 200 250 / 250
Other:
Number of approximated MODERATE 1 1
amounts of urine
Vital Signs
Temp Pulse Resp BP Pulse Ox
98.6 F 83 20 138/79 96
03/26/24 03:07 03/26/24 03:07 03/26/24 03:07 03/26/24 03:07 03/26/24 03:07
Calcium 8.2 mg/dl (8.4-10.2) L 03/25/24 07:22
Magnesium 1.9 mg/dl (1.6-2.3) 03/25/24 07:22
Total Bilirubin 1.1 mg/dl (0.2-1.3) 03/19/24 17:41
AST 23 U/L (17-59) 03/19/24 17:41
ALT 14 U/L (0-50) 03/19/24 17:41
Alkaline Phosphatase 70 U/L (38-126) 03/19/24 17:41
Total Protein 6.8 g/dl (6.3-8.2) 03/19/24 17:41
Albumin 3.9 g/dl (3.5-5.0) 03/19/24 17:41
Physical Exam
-
Gen: No apparant distress
Abd: soft, mild tender overlying incision, minimal distension,- no apparant active drainage, no erythema or ecchymosis.
[2024-03-26] MEDS: COLACE 100 MG PO (08:09)
[2024-03-26] MEDS: MIRALAX 17 GRAMS PO (08:10)
[2024-03-26] MEDS: PROTONIX IV 40 MG IV (08:10)
[2024-03-26] MEDS: NSS (PRESERVATIVE FREE) 10 ML IV (08:10)
[2024-03-26 08:35] LABS: Hematocrit 26.7 % (39.0-52.0); Hemoglobin 8.5 g/dL (13.0-18.0); Mean Corp Hgb Conc. 31.8 g/dL (33.0-37.0); Mean Corpuscular Hgb 24.4 pg (27.0-31.0); Mean Corpuscular Volume 76.5 fL (80.0-94.0); Mean Platelet Volume 10.7 fL (7.4-10.4); Platelet Count 316 10^3/uL (130-400); Red Blood Cell Count 3.49 10^6/uL (4.70-6.10); Red Cell Dist. Width 21.9 % (11.5-14.5); White Blood Cell Count 8.7 10^3/uL (4.8-10.8)
--- NOTE | 2024-03-26 09:09 | W.PN.HOSP.TC ---
Addendum entered and electronically signed by Lily Villatoro MD 03/27/24 08:52:
Severe Malnutrition
-appreciate dietary
Original Note:
Today's Communication/Plan
-
see plan
Assessment / Plan
Assessment / Plan
CT A/P
IMPRESSION: As described, findings in the rectum and distal sigmoid colon suggesting colitis, and stercoral colitis would be the leading consideration. Infectious colitis could also have this appearance. Ischemic colitis could be considered, but
felt to be less likely.
There is a tortuous and elongated sigmoid colon which extends into the anterior abdomen, with distention of the sigmoid colon with stool and air, measuring up to 10.6 cm in transverse dimension. There is also tortuosity of the sigmoid colon within
the lower abdomen as it extends toward the descending colon, but no evidence of a focal narrowing to suggest sigmoid volvulus. Distention of the sigmoid colon is felt to most likely be on the basis of stool.
Thickened small bowel loops in the left pelvis, felt to most likely be reactive enteritis adjacent to the sigmoid colon and rectum. There is no evidence for small bowel obstruction, as administered oral contrast has reached the cecum.
There is no evidence of free intraperitoneal air. There is no evidence of pneumatosis. There is no evidence for portal vein gas.
Cholelithiasis. Small foci of air within the gallbladder lumen are likely related to gallstones. No evidence for biliary ductal dilation.
Small fat-containing umbilical hernia which also contains fluid, but no evidence for bowel within this umbilical hernia.
2 mm nephrolith within the mid to lower right kidney.
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 There is fusion of the L4-5 disc space, which may be postsurgical.
Obstruction Series 03/23/24
IMPRESSION:
Severely dilated loop of colon projecting over the upper abdomen consistent with known distended, redundant sigmoid colon on prior CT. There are multiple dilated loops of small bowel projecting over the abdomen which is suggestive of obstruction
although findings are not significantly changed from prior CT which did not demonstrate a discrete obstruction and may be due to distal impaction.
Surgery 03/23/24
Pre-op Diagnosis: Incarcerated UH with cellulitis; obstipation with severely distended sigmoid colon
Post-op Diagnosis: Strangulated UH with abscess; probable ileus
Mr. Alton Singh is a 73 yo man with hx significant for achalasia, depression presents to the ER with abdominal pain and report of constipation, initially admitted for sepsis 2/2 sterocoral colitis with increasing pain revealing acute
infected/cellulitic incarcerated umbilical hernia. Hernia contained fat, no viscera raising suspicion for ileus as the etiology of his bowel disfunction.
Incarcerated Umbilical Hernia
Ileus
-appreciate surgery
-s/p OR 03/23 - open primary repair of strangulated UH. EUA/ rigid sigmoidoscopy
-diet advanced, patient tolerating
-IV Zosyn
-intra-op cultures show strep - can transition to Augmentin on DC
-s/p bedside wound care by surgery 03/25
-PT/OT - HH
-possible DC today - follow up GS recs
Hypokalemia
replete
Achalasia
GERD
- No current / acute symptoms in this regard.
- Continue daily PPI.
- Follow-up with team at [place] as planned after discharge.
Suspect chronic anemia
Monitor
Depression
- Stable. Continue majority of psychotropic medications during hospital stay.
DVT Prophylaxis: SCDs, Lovenox
Code Status: Full
I spent a total of 52 minutes with the patient or on the floor. More than 50% of this time involved counseling and coordination of care.
Anticipated Discharge: Within 24 hours
Subjective/Interval History
-
Date of Service: March 26, 2024
feeling well
hoping to leave today
eating and drinking OK
pain improved
Objective Data
-
Labs:
Laboratory Results
03/26/24
07:20
WBC 8.7
Hgb 8.5 L
Hct 26.7 L
Plt Count 316
Sodium Pending
Potassium Pending
Chloride Pending
Carbon Dioxide Pending
BUN Pending
Creatinine Pending
Glucose Pending
Calcium Pending
Vital Signs:
Vital Signs
Temp Pulse Resp BP Pulse Ox
98.4 F 77 18 144/82 95
03/26/24 07:00 03/26/24 07:00 03/26/24 07:00 03/26/24 07:00 03/26/24 07:00
I&O
03/25/24 03/26/24 03/27/24
06:59 06:59 06:59
Intake Total 1080 / 1080 1140 / 1140
Output Total 200 / 200 250 / 250
Balance 880 / 880 890 / 890
Review of Systems
-
History Source: Patient
All other systems: Reviewed and negative
Physical Exam
-
General: No Apparent Distress
HEENT: PERRLA
Respiratory: Clear to Auscultation; Negative Wheezes
Cardiac: Regular Rhythm and S1/S2
GI: Other (surgical site covered in gauze mild oozing)
Musculoskeletal: No Edema
Skin: Warm and Dry; Negative Rash
Neuro: AO x 3
Psych: Calm
Data Reviewed
-
Diagnostic Radiology: Report Reviewed by me
Labs: Labs Reviewed by me
[2024-03-26 10:09] VITALS: BP 131/78; BP 132/80; PULSE 82; O2SAT 97
[2024-03-26 10:13] LABS: Blood Urea Nitrogen 13 mg/dl (9-20); Calcium 7.9 mg/dl (8.4-10.2); Carbon Dioxide 25 mmol/L (22-30); Chloride 107 mmol/L (98-107); Estimated Creatinine Clearance 82 ml/min; Glucose 95 mg/dl (70-99); Magnesium 1.8 mg/dl (1.6-2.3); Potassium 3.2 mmol/L (3.5-5.1); Sodium 139 mmol/L (135-145); eGFR > 60.00
[2024-03-26 11:00] VITALS: BP 129/76
--- NOTE | 2024-03-26 11:28 | W.DS.TRANS ---
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
-
Discharge Instructions:
Discharge Diagnosis/Procedures - open primary repair of strangulated umbilical
hernia, ileus
Diet Low Residue
Activity As tolerated
Driving Restrictions As prior to admission
Bathing Restrictions None
Other Services VN
Wound Care pack wound with 1/2' iodoform gauze and cover
with dry gauze dressing. change daily (if VN
performs, this can be done sunday, Sunday and
Sunday) - and change as needed if soiled.
Instructions:
Stand-Alone Forms:
Changes to Home Medications: Yes
Discharge Medications:
DC Medications w/original date entered in [employer]
cholecalciferol (vitamin D3) 10 mcg (400 unit) tablet (Vitamin D3) 10 mcg PO DAILY Supplement 03/19/24
esomeprazole magnesium 20 mg tablet,delayed release 20 mg PO DAILY Gastrointestinal Issue 03/19/24
lorazepam 0.5 mg tablet 0.5 mg PO HS Sleep 03/19/24
mirtazapine 30 mg tablet 30 mg PO DAILY Mental Health/Anxiety 03/19/24
quetiapine 400 mg tablet 400 mg PO HS Mental Health/Anxiety 03/19/24
sertraline 100 mg tablet 100 mg PO HS Depression 03/19/24
therapeutic multivitamin 1 tab PO DAILY Supplement 03/19/24
amoxicillin 875 mg-potassium clavulanate 125 mg tablet 1 tab PO BID #14 tabs 03/26/24
polyethylene glycol 3350 17 gram oral powder packet (HealthyLax) 17 g PO DAILY #30 ea 03/26/24
Home Medication Changes
1 more week Augmentin
daily Miralax
Pending Results: No
--- NOTE | 2024-03-26 12:48 | PN.CDI ---
CDI
- -
CDI:
Physician Documentation Request
Admit Date: 03/20/24 01:29
Dear Doctor Irving,
03/25 research and development manager notes state 'During visit RD able to visualize some protrusion of clavical, temporal wasting, apparent ribs. With weight loss of > 10 % in three months, < 75% estimated needs > 1 month and observed muscle and fat wasting pt
meets AND/ASPEN criteria for severe protein calorie malnutrition'
Based on the above information and your assessment, which of the following most accurately represents the patient's nutritional status?
Severe Malnutrition
No nutritional deficiency
Other (please specify)
[place] Criteria ([facility] Hospitalist 2017)
2 or more criteria must be present for either
non severe or severe malnutrition
Note that the criteria differs related to the
presence of an acute or chronic illness
Acute Illness Chronic Illness
Energy Intake Non Severe: <75% for >7 days Non Severe: <75% for >1 month
Severe: <50% for >5 days Severe: <75% for >1 month
Weight Loss Non Severe: 1-2% over 1 week Non Severe: 5% over 1 month
5% over 1 month 7.5% over 3 months
7.5% over 3 months 10% over 6 months
1 year N/A 20% over 1 year
Severe: >2% over 1 week Severe: >5% over 1 month
>5% over 1 month >7.5% over 3 months
>7.5% over 3 months >10% over 6 months
1 year N/A >20% over 1 year
Body Fat Non Severe: Mild Decrease Non Severe: Mild Loss
Severe: Moderate Decrease Severe: Severe Loss
Muscle Mass Non Severe: Mild Decrease Non Severe: Mild Loss
Severe: Moderate Decrease Severe: Severe Loss
Fluid Accumulation Non Severe: Mild Accumulation Non Severe: Mild Accumulation
Severe: Moderate to severe Severe: Moderate to severe
accumulation accumulation
Reduced Tissue Recovery Technician Strength Non Severe: N/A Non Severe: N/A
Severe: Measurably reduced Severe: Measurably reduced
Use of terms such as suspected, likely, concern for, or probable (associated with a specific diagnosis that is being evaluated, monitored, or treated as if it exists) are acceptable and can be coded in the inpatient setting, when documented at the
time of discharge.
Thank you,
Kimberley Camilo RN, BSN
CDI Specialist
tiger text
Please use your independent medical judgment in providing your response.
--- NOTE | 2024-03-26 13:02 | CM ---
Addendum entered by ELLIOT Gonzalez 03/26/24 15:43:
Spoke with clinical mgr Brittany, who stated that patient would not be able to get wound care x3 at outpatient. Spoke with Tessa hernández for [facility] who stated that they can do wound care x2 and teach patient/family to do the third day.
Patient was agreeable to this.
Tessa went to meet with patient.
Original Note:
Received notification that patient is cleared for discharge. Received consult for VN wound care x3. Met with patient who stated that he can go outpatient for his wound care. Attending updated and agreeable.
Placed a call to the [facility] to determine what patient needs to obtain to schedule. Had to leave a voice mail. Will await return call.
Patient completed IMM. On chart.
Plan: Case management will continue to follow and assist with discharge planning.
--- NOTE | 2024-03-26 14:03 | W.DCSUMMARY ---
Discharge Summary
Discharge Data
Date of Admission: 03/20/24
Date of Discharge: 03/26/24
-
Pending Results: No
Hospital Course
Discharging Physician : Dr. Lily Villatoro
Disposition : Home
Primary care physician : Dr. Juan Daniel Torres
Principal Discharge diagnosis : open primary repair of strangulated umbilical hernia, ileus
Hospital Course :
Mr. Alton Singh is a 73 yo man with hx significant for achalasia, depression presents to the ER with abdominal pain and report of constipation. CT A/P with e/o stercoral colitis without e/o small bowel obstruction. He was admitted for sepsis
2/2 stercoral colitis. Hospital course c/b increasing pain revealing acute infected/cellulitic incarcerated umbilical hernia with obstruction series suggesting an obstruction. He was taken to the OR 03/23/24 with findings of incarcerated umbilical
hernia. Hernia contained fat, no viscera raising suspicion for ileus as the etiology of his bowel disfunction. He was maintained on a bowel regimen and had BM post-op. Patient had improvement in pain, tolerating his normal diet. He is discharged
with wound care instructions (which will be done at outpatient clinic).
Patient is scheduled for surgery at [place] for achalasia in April. 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
Time spent on discharge was 35 minutes.
Important imaging findings :
CT A/P 03/20/24
IMPRESSION: As described, findings in the rectum and distal sigmoid colon suggesting colitis, and stercoral colitis would be the leading consideration. Infectious colitis could also have this appearance. Ischemic colitis could be considered, but
felt to be less likely.
There is a tortuous and elongated sigmoid colon which extends into the anterior abdomen, with distention of the sigmoid colon with stool and air, measuring up to 10.6 cm in transverse dimension. There is also tortuosity of the sigmoid colon within
the lower abdomen as it extends toward the descending colon, but no evidence of a focal narrowing to suggest sigmoid volvulus. Distention of the sigmoid colon is felt to most likely be on the basis of stool.
Thickened small bowel loops in the left pelvis, felt to most likely be reactive enteritis adjacent to the sigmoid colon and rectum. There is no evidence for small bowel obstruction, as administered oral contrast has reached the cecum.
There is no evidence of free intraperitoneal air. There is no evidence of pneumatosis. There is no evidence for portal vein gas.
Cholelithiasis. Small foci of air within the gallbladder lumen are likely related to gallstones. No evidence for biliary ductal dilation.
Small fat-containing umbilical hernia which also contains fluid, but no evidence for bowel within this umbilical hernia.
2 mm nephrolith within the mid to lower right kidney.
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 There is fusion of the L4-5 disc space, which may be postsurgical.
Obstruction Series 03/23/24
IMPRESSION:
Severely dilated loop of colon projecting over the upper abdomen consistent with known distended, redundant sigmoid colon on prior CT. There are multiple dilated loops of small bowel projecting over the abdomen which is suggestive of obstruction
although findings are not significantly changed from prior CT which did not demonstrate a discrete obstruction and may be due to distal impaction.
Procedure findings :
Surgery 03/23/24
Pre-op Diagnosis: Incarcerated UH with cellulitis; obstipation with severely distended sigmoid colon
Post-op Diagnosis: Strangulated UH with abscess; probable ileus
Discharge Plan
-
Patient Disposition: Home (Routine Discharge)
Discharge Diagnosis/Procedures: - open primary repair of strangulated umbilical hernia, ileus
Diet: Low Residue
Activity: As tolerated
Driving Restrictions: As prior to admission
Bathing Restrictions: None
Other Services: VN
Wound Care: pack wound with 1/2' iodoform gauze and cover with dry gauze dressing. change daily (if VN performs, this can be done sunday, Sunday and Sunday) - and change as needed if soiled.
Referrals:
Juan Daniel Torres MD [Family Provider] - in less than 1 week
Jose Charles MD [Active] - in one week
Prescriptions:
New
polyethylene glycol 3350 [HealthyLax] 17 gram Powder In Packet
17 g PO DAILY Qty: 30 0RF
amoxicillin-pot clavulanate 875-125 mg tablet
1 tab PO BID Qty: 14 0RF
Continued
sertraline 100 mg Tablet
100 mg PO HS
therapeutic multivitamin Tablet
1 tab PO DAILY
lorazepam 0.5 mg Tablet
0.5 mg PO HS
mirtazapine 30 mg Tablet
30 mg PO DAILY
cholecalciferol (vitamin D3) [Vitamin D3] 10 mcg (400 unit) Tablet
10 mcg PO DAILY
quetiapine 400 mg Tablet
400 mg PO HS
esomeprazole magnesium 20 mg Tablet,Delayed Release (Dr/Ec)
20 mg PO DAILY
Discontinued
dextroamphetamine-amphetamine 25 mg capsule,extended release 24hr
25 mg PO DAILY
Discharge Orders:
Discharge Patient (As Directed); Ordered 03/26/24
Ordered By: Lily Villatoro
Discharge Date and Time
Print Language: CANADIAN
--- NOTE | 2024-03-26 15:21 | VNURNOTE ---
Home Health Liaison met with patient and sister as patient was waiting for DC home to discuss [facility] nurse visits, schedule and who will be available for teaching at home. Sister Vania willing to learn wound care. Patient is agreeable and
understands that visits at home will be 1-3 x per week to assess and teach medical management. [facility] brochure provided with contact information. Patient is aware that [facility] will contact them for start of care in a few days after discharge from .
[facility] referral completed in [facility].
== END 2024-03-26 15:08 | disposition home or self-care (01) | DRG 853 ==
LOC: 3 WEST ACU 01:29
PROVIDERS: Clinical Nurse Specialist Family Health; Internal Medicine; ADMITTING PHYSICIAN Hospitalist; ATTENDING PHYSICIAN Student in an Organized Health Care Education/Training Program; CONSULT PHYSICIAN Surgery; EMERGENCY PHYSICIAN Emergency Medicine; FAMILY PHYSICIAN Internal Medicine
PROC: 0DJD8ZZ Inspection of Lower Intestinal Tract, Via Natural or Artificial Opening Endoscopic (ICD-10-PCS; 2024-03-23)
PROC: 0WQF0ZZ Repair Abdominal Wall, Open Approach (ICD-10-PCS; 2024-03-23)
DX: A41.9 Sepsis, unspecified organism (principal); E43 Unspecified severe protein-calorie malnutrition; K42.0 Umbilical hernia with obstruction, without gangrene; K56.7 Ileus, unspecified; Q43.8 Other specified congenital malformations of intestine; L03.316 Cellulitis of umbilicus; L02.216 Cutaneous abscess of umbilicus; K22.0 Achalasia of cardia; D63.8 Anemia in other chronic diseases classified elsewhere; K21.9 Gastro-esophageal reflux disease without esophagitis; K52.89 Other specified noninfective gastroenteritis and colitis; K59.09 Other constipation; E87.6 Hypokalemia; K80.20 Calculus of gallbladder without cholecystitis without obstruction; F32.9 Major depressive disorder, single episode, unspecified; E86.0 Dehydration; Z68.24 Body mass index [BMI] 24.0-24.9, adult
CPT/HCPCS: 74022; 74177; 80048; 80053; 81003; 82607; 82728; 82746; 83540; 83550; 83605; 83690; 83735; 84443; 84466; 85025; 85027; 86850; 86900; 86901; 87040; 87070; 87075; 87077; 87147; 87205; 96365; 96375; 97116; 97162; 97535; 99285; Q9967

== ENCOUNTER → 2024-06-04 12:25 | Day surgery (SDC) | payer MEDICARE, MEDICAID, SELFPAY | LOC: SDSPAT 12:25 | PROVIDERS: ATTENDING PHYSICIAN Surgery; FAMILY PHYSICIAN Family Medicine | DX: Z01.810 Encounter for preprocedural cardiovascular examination (principal) | CPT/HCPCS: 93005; 36415 ==

== ENCOUNTER 2024-06-13 06:33 | Day surgery (SDC) | payer MEDICARE, MEDICAID, SELFPAY ==
[2024-06-04 13:19] VITALS: BMI 25.3
[2024-06-13] VITALS (7 sets, daily range): BP systolic 115–162; BP diastolic 83–96; BMI 25.3
[2024-06-13] MEDS: TYLENOL 1000 MG PO (09:42)
--- NOTE | 2024-06-13 10:23 | HP.FOC2 ---
Focused History & Physical
Chief Complaint
HPI:
Chief Complaint: Left inguinal hernia
HPI / Indication for Planned Procedure: Patient is a 73-year-old male with a symptomatic left inguinal hernia. He is recently known to myself status post open primary repair of a strangulated umbilical hernia in March 2024. Shortly after this
procedure he began to take note of left inguinal swelling and a readily apparent left inguinal hernia was confirmed. Presents today for scheduled operative correction.
Relevant Past Medical History: Other (Achalasia, depression, GERD)
Relevant Social History: Negative
Relevant Family History: Negative
Relevant Past Surgical History: Positive for (Laparoscopic Heller myotomy 1999, open primary repair of strangulated umbilical hernia 03/2024)
Review of Systems
Review of Pertinent Systems: All Systems Negative
Medication
See Medication form for detailed medications: Yes
Medication List (including Herbals & OTC):
quetiapine 400 mg tablet 400 mg PO HS Mental Health/Anxiety 03/19/24
aspirin 81 mg capsule 81 mg PO DAILY 06/12/24
cholecalciferol (vitamin D3) 25 mcg (1,000 unit) tablet (Vitamin D3) 25 mcg PO DAILY 06/12/24
dextroamphetamine-amphetamine ER 25 mg 24hr capsule,extend release (Adderall XR) 25 mg PO DAILY 06/12/24
mirtazapine 30 mg tablet (Remeron) 30 mg PO HS 06/12/24
multivitamin 1 tab PO DAILY 06/12/24
polyethylene glycol 3350 17 gram oral powder packet (HealthyLax) 17 g PO DAILY PRN constipation 06/12/24
sertraline 100 mg tablet (Zoloft) 200 mg PO DAILY 06/12/24
Medications Reviewed: Yes
Allergies and Reactions
Patient has Allergies: No
Noted Allergies and Reactions:
Allergy/AdvReac Type Severity Reaction Status Date / Time
No Known Allergies Allergy Verified 06/13/24 09:30
Pertinent Physical Exam
All Other Systems: Negative
Head/Neck: Normal
Lungs: Normal
Heart: Normal
Abdomen: Other (Reducible left inguinal hernia)
Extremities: Normal
Neurological: Normal
Diagnosis / Assessment
73-year-old male presenting for scheduled operative correction symptomatic left inguinal hernia
Plan / Procedure
Robotic assisted laparoscopic repair left inguinal hernia with mesh
Anesthesia/Sedation to be done by Anesthesia Provider: Yes
--- NOTE | 2024-06-13 13:12 | W.IMMPOSTOP ---
Addendum entered and electronically signed by Jose Charles MD 06/13/24 18:37:
#[id number]
Original Note:
Surgical Immed Post Op Note
-
Primary Surgeon: Araceli
Assisting Surgeon: Valentina So PA-C
Pre-op Diagnosis: Left inguinal hernia
Post-op Diagnosis: Left inguinal hernia, indirect
Procedure Performed: RAL LOIS repair left inguinal hernia with mesh; 3D max large mid weight
Anesthesia Type: GETA + 0.25% Marcaine
Specimen / Cultures: None
Estimated Blood Loss: 8 mL
Complications: None immediate
Operative Findings: Left indirect inguinal hernia; 3D max large mid weight mesh repair secured to Lul's ligament with 2-0 Vicryl x 2. Patient with significant abdominal distention preoperatively due to chronic colonic dysmotility with resultant
bowel distention at baseline. No intestinal adhesions to hernia sac. Enough space after insufflation to safely get through typical LOIS minimally invasive repair as described.
Patient's sister Vania updated postoperatively via phone call
The assistance of Valentina So PA-C was required due to the complexity of the procedure. During the procedure Valentina So PA-C assisted with port placement, robotic instrumentation and suture material exchanges, and closure of the surgical incision
sites. I was present for the entirety of the operative procedure.
== END 2024-06-13 15:32 | disposition home or self-care (01) ==
LOC: SDS 06:33
PROVIDERS: ATTENDING PHYSICIAN Surgery; FAMILY PHYSICIAN Family Medicine
DX: K40.90 Unilateral inguinal hernia, without obstruction or gangrene, not specified as recurrent (principal)
CPT/HCPCS: 49650; C1781

== ENCOUNTER → 2024-08-06 11:12 | Outpatient (REF) | payer MEDICARE, MEDICAID, SELFPAY | LOC: RAD 11:12 | DX: K59.00 Constipation, unspecified (principal) | CPT/HCPCS: 74019 ==

== ENCOUNTER 2024-09-16 01:18 | Inpatient (IN) | payer MEDICARE, SELFPAY ==
[2024-09-15 15:37] VITALS: BP 176/106
--- NOTE | 2024-09-15 15:39 | ED.GENMED ---
ED Provider Triage
<Juan Daniel Gooden PA-C - Last Filed: 09/15/24 15:42>
-
Patient seen by provider in Triage?: Seen in Triage
Attestation: A medical screening examination has been initiated by a qualified medical provider. Based on the assessment performed at this time, it has been determined that an emergent medical condition may exist and the patient has been informed
that further medical evaluation and possible additional diagnostic testing may be needed.
HPI: 74-year-old male with past medical history of achalasia, extensive weight loss for the last 1 to 1-1/2 years, no change today but continues with weight loss, nausea, vomiting and diarrhea. Reportedly follows at [facility] and there has been
talks about possible surgery but no interventions taken place. and patient both very frustrated and are trying to figure out potential treatment plan
GENERAL: Alert , in no apparent distress
EYE: No visual abnormalities.
NECK: Trachea midline
ENT: No visible abnormalities.
LUNGS: No acute respiratory distress
NEUROLOGICAL: Alert and oriented
SKIN: Skin intact. No visible changes.
MUSCULOSKELETAL: Moving extremities normally
PSYCH: Normal and appropriate interaction.
This is a medical evaluation conducted in person to initiate diagnostic evaluation and provide initial therapeutics. Please see further documentation by the treating clinician.
History of Present Illness
<Juan Daniel Gooden PA-C - Last Filed: 09/15/24 15:42>
General
Chief Complaint: Abdominal Symptoms
Time Seen by Provider: 09/15/24 20:46
<Adia Yi PA-C - Last Filed: 09/16/24 00:55>
General
Source: patient and spouse (Spouse at bedside)
Exam Limitations: none
Nursing documentation reviewed up to this point in time: agreed with
History of Present Illness
History of Present Illness:
Patient is 74-year-old male with history of achalasia presenting to the emergency department with abdominal distention and weight loss. Patient states that he has had progressively worsening abdominal ascension diffuse abdominal pain for many
months now. He has not had a bowel movement in 7 days. He did have a small amount of diarrhea approximate 7 days ago. He does have infrequent vomiting. Patient reports a weight loss of over 60 pounds over the past year. He does report some mild
shortness of breath and upper abdominal/chest discomfort. Patient denies any fevers, chills, dysuria/urinary hesitancy.
Patient presents due to ongoing symptoms and significant weakness given he is unable to adequately eat/drink..
Patient has been following with [facility] for achalasia although he feels that nothing is being done.
Past History
<Juan Daniel Gooden PA-C - Last Filed: 09/15/24 15:42>
Past History
ED Past Medical History: Psychiatric (Depression)
ED Past Surgical History: Other (surgery for Achalasia, )
Social History
Tobacco: Non-smoker
Alcohol: Occasional
Personal:
Living: with family
Review of Systems
<Adia Yi PA-C - Last Filed: 09/16/24 00:55>
Review of Systems
Allergies reviewed?: Yes
All Other Systems: ROS reviewed and negative except as documented in HPI and ROS
Phy Exam
<Adia Yi PA-C - Last Filed: 09/16/24 00:55>
Physical Exam
Physical Exam:
Vitals: Hypertensive, otherwise vital signs stable. A-fib
General: Patient is well appearing, no acute distress. Nontoxic appearing
Skin: Warm and dry, no rashes or lesions
Head: Normocephalic, atraumatic
Eyes: Sclera nonicteric. EOMs intact. No nystagmus.
Throat: Protecting airway
Neck: Normal ROM, no cervical spine tenderness, no meningismus
Cardiac: Regular rate and rhythm, no murmurs.
Pulm: Normal respiratory effort, no wheezes, rales, rhonchi heard on exam.
Abdomen: Moderate abdominal pain. Mild diffuse tenderness without rebound tenderness or guarding.
Extremities: No evidence of cyanosis or edema. Palpable pulses bilaterally
Neuro: AAOx3. Grossly intact.
Psychiatric: Normal affect.
Course
<Juan Daniel Gooden PA-C - Last Filed: 09/15/24 15:42>
Orders/Labs/Results
Orders:
Orders
09/15/24 15:43
Complete Blood Count/With Diff Urgent
Comprehensive Metabolic Panel Urgent
TSH Urgent
09/15/24 21:16
0.9% Sodium Chloride 1000 ml [Nss] 1,000 ml IV BOLUS
09/15/24 21:18
CT Abd/pelvis W Iv Cont Urgent
Comment:
Reason For Exam: diffuse abdominal pain/ distention, weight loss
09/15/24 21:19
Electrocardiogram (*1) Urgent
Reason for Study: Abdominal Pain
EKG- Treatment ONCE
09/15/24 23:45
Lactic Acid Urgent
Abnormal Lab Results
09/15/24
15:43
RBC 4.56 L 10^6/uL
(4.70-6.10)
Hgb 12.6 L g/dL
(13.0-18.0)
Hct 38.8 L %
(39.0-52.0)
MCHC 32.5 L g/dL
(33.0-37.0)
RDW 21.8 H %
(11.5-14.5)
Monocytes % 11.1 H %
(1.7-9.3)
BUN 36 H mg/dl
(9-20)
Creatinine 1.4 H mg/dL
(0.7-1.3)
Glucose 113 H mg/dl
(70-99)
09/15/24 15:43
09/15/24 15:43
Vital Signs
Initial and Last Documented VS:
Initial Vital Signs
Temp Pulse Resp BP Pulse Ox
98.3 F 81 20 176/106 95
09/15/24 15:37 09/15/24 15:37 09/15/24 15:37 09/15/24 15:37 09/15/24 15:37
Last Documented Vital Signs
Temp Pulse Resp BP Pulse Ox
98.5 F 77 14 171/126 93
09/15/24 18:54 09/15/24 23:36 09/15/24 23:36 09/15/24 23:32 09/15/24 23:36
<Adia Yi PA-C - Last Filed: 09/16/24 00:55>
Orders/Labs/Results
Orders:
Orders
09/15/24 15:43
Complete Blood Count/With Diff Urgent
Comprehensive Metabolic Panel Urgent
TSH Urgent
09/15/24 21:16
0.9% Sodium Chloride 1000 ml [Nss] 1,000 ml IV BOLUS
09/15/24 21:18
CT Abd/pelvis W Iv Cont Urgent
Comment:
Reason For Exam: diffuse abdominal pain/ distention, weight loss
09/15/24 21:19
Electrocardiogram (*1) Urgent
Reason for Study: Abdominal Pain
EKG- Treatment ONCE
09/15/24 23:45
Lactic Acid Urgent
Abnormal Lab Results
09/15/24
15:43
RBC 4.56 L 10^6/uL
(4.70-6.10)
Hgb 12.6 L g/dL
(13.0-18.0)
Hct 38.8 L %
(39.0-52.0)
MCHC 32.5 L g/dL
(33.0-37.0)
RDW 21.8 H %
(11.5-14.5)
Monocytes % 11.1 H %
(1.7-9.3)
BUN 36 H mg/dl
(9-20)
Creatinine 1.4 H mg/dL
(0.7-1.3)
Glucose 113 H mg/dl
(70-99)
09/15/24 15:43
09/15/24 15:43
Vital Signs
Initial and Last Documented VS:
Initial Vital Signs
Temp Pulse Resp BP Pulse Ox
98.3 F 81 20 176/106 95
09/15/24 15:37 09/15/24 15:37 09/15/24 15:37 09/15/24 15:37 09/15/24 15:37
Last Documented Vital Signs
Temp Pulse Resp BP Pulse Ox
98.5 F 77 14 171/126 93
09/15/24 18:54 09/15/24 23:36 09/15/24 23:36 09/15/24 23:32 09/15/24 23:36
<Marifer Stubbs, DO - Last Filed: 09/15/24 23:09>
Orders/Labs/Results
Orders:
Orders
09/15/24 15:43
Complete Blood Count/With Diff Urgent
Comprehensive Metabolic Panel Urgent
TSH Urgent
09/15/24 21:16
0.9% Sodium Chloride 1000 ml [Nss] 1,000 ml IV BOLUS
09/15/24 21:18
CT Abd/pelvis W Iv Cont Urgent
Comment:
Reason For Exam: diffuse abdominal pain/ distention, weight loss
09/15/24 21:19
Electrocardiogram (*1) Urgent
Reason for Study: Abdominal Pain
EKG- Treatment ONCE
09/15/24 23:45
Lactic Acid Urgent
Abnormal Lab Results
09/15/24
15:43
RBC 4.56 L 10^6/uL
(4.70-6.10)
Hgb 12.6 L g/dL
(13.0-18.0)
Hct 38.8 L %
(39.0-52.0)
MCHC 32.5 L g/dL
(33.0-37.0)
RDW 21.8 H %
(11.5-14.5)
Monocytes % 11.1 H %
(1.7-9.3)
BUN 36 H mg/dl
(9-20)
Creatinine 1.4 H mg/dL
(0.7-1.3)
Glucose 113 H mg/dl
(70-99)
09/15/24 15:43
09/15/24 15:43
Vital Signs
Initial and Last Documented VS:
Initial Vital Signs
Temp Pulse Resp BP Pulse Ox
98.3 F 81 20 176/106 95
09/15/24 15:37 09/15/24 15:37 09/15/24 15:37 09/15/24 15:37 09/15/24 15:37
Last Documented Vital Signs
Temp Pulse Resp BP Pulse Ox
98.5 F 77 14 171/126 93
09/15/24 18:54 09/15/24 23:36 09/15/24 23:36 09/15/24 23:32 09/15/24 23:36
<Adia Yi PA-C - Last Filed: 09/16/24 00:55>
MDM/Problems Addressed
Differential Diagnosis Includes:
Not limited to: Constipation, fecal impaction, bowel obstruction, volvulus, etc.
MDM/Problems Addressed:
74-year-old male with history as documented presenting with progressively worsening abdominal distention associated with mild abdominal discomfort and intermittent nausea/vomiting. No fevers, chills. Last bowel movement 7 days ago. Patient
hypertensive, otherwise stable vital signs. Physical exam as above. Abdomen is moderately distended with very mild diffuse abdominal tenderness. No rebound tenderness or guarding. Cardio/pulmonary assessment unremarkable. Basic labs initiated
in triage and reviewed. Mild KALPESH likely prerenal from dehydration. Given significant distention�will check CT abdomen/pelvis. Will give IV fluids. Patient declines any analgesia at this time.
Update: CT abdomen/pelvis report reviewed�findings of likely sigmoid volvulus. Did discuss findings with patient who is sleeping comfortably and in no apparent distress. Case was discussed with GI doctor, Dr. Woo on-call. Given no evidence of
ischemia on CT scan and patient's stability will plan for flex sigmoidoscopy urgently in the a.m. Will check lactic acid. Plan for patient to be n.p.o. with maintenance lactated Ringer's and flex sigmoidoscopy with GI in the morning. Patient
admitted to hospitalist service in stable condition
Chronic conditions affecting care:
Achalasia
Acute Exacerbation and/or Progression of Chronic Illness:
N/A
<Adia Yi PA-C - Last Filed: 09/16/24 00:55>
*Radiology
Radiology exam reviewed: preliminary read by ED provider and radiology read reviewed (Sigmoid volvulus)
*Pulse Oximetry
Patient hypoxic: no
*EKG
Interpreted by ED Provider?: Yes
EKG Intrepretation Date: 09/15/24
Interpretation: abnormal
Heart Rate: 76
Rate: normal
Rhythm: sinus
Interval: long QT
QRS Pattern: left vent hypertrophy
Ischemia: non-specific ST changes
*Weaving Machine Operator Interpretation
Rate: Weaving Machine Operator- N/A
*Critical Care Note
Total Time (30-74mins, 75-104mins- exclusive of procedures): Not Applicable
<Adia Yi PA-C - Last Filed: 09/16/24 00:55>
Patient Management
Discussion with other providers: Hospitalist and Accounting Consultant (GI)
Escalation/DeEscalation of care consider admission/obs:
Admit for flex sigmoidoscopy in morning
ED Attending Note
<Juan Daniel Gooden PA-C - Last Filed: 09/15/24 15:42>
-
Portions of this chart may have been created with voice recognition software.� Occasional wrong word or��sound alike� substitutions may have occurred due to the inherent limitations of voice recognition software.
<Marifer Stubbs DO - Last Filed: 09/15/24 23:09>
ED Attending Note
Patient seen and examined by attending physician: Yes
I performed the substantive portion of visit, reviewed & personally made and approve the management plan that is documented in note by myself or ISRA.: Yes
I performed a history and physical exam of patient and discussed management with resident, I reviewed resident's note and agree with documented findings and plan of care.: Yes
ED Attending Note:
74-year-old male with history of achalasia presenting for worsening symptoms. Patient reports that he has carried this diagnosis for several years. Has recently been following with [facility]. In the past year and a half, reports that he lost about
60 pounds. In the past few weeks has had worsening abdominal distention and inability to tolerate food and liquid by mouth. Denies chest pain or difficulty breathing. Has not had a bowel movement in 7 days. Vital signs are significant for high
blood pressure.
On exam patient is resting comfortably, no acute distress. However, patient with markedly distended abdomen without significant tenderness on palpation. Concerning for acute intra-abdominal process such as obstruction versus acute on chronic
constipation. Concern for malnutrition as well, patient notes he has been eating or drinking anything. Mild dryness to mucous membranes. Plan for laboratory analysis and CT imaging of the abdomen.
21:30 - Labs show KALPESH, consistent with dehydration, will receive IV fluids
23:00-CT shows concern for sigmoid volvulus. Will consult with GI and plan for admission
Discharge Plan
Departure
Patient Disposition: Admit
Date of Disposition: 09/15/24
Time of Disposition: 23:51
Presentation/result/management discussed w/ accepting MD/DO: Hospitalist
Discharge Problem:
Sigmoid volvulus
Prescriptions:
No Action
quetiapine 400 mg Tablet
400 mg PO HS
multivitamin Tablet
1 tab PO DAILY
sertraline [Zoloft] 100 mg Tablet
200 mg PO DAILY
mirtazapine [Remeron] 30 mg Tablet
30 mg PO HS
dextroamphetamine-amphetamine [Adderall XR] 25 mg Capsule,Extended Release 24hr
25 mg PO DAILY
cholecalciferol (vitamin D3) [Vitamin D3] 25 mcg (1,000 unit) Tablet
25 mcg PO DAILY
aspirin 81 mg Capsule
81 mg PO DAILY
polyethylene glycol 3350 [HealthyLax] 17 gram powder in packet
17 g PO DAILY PRN (Reason: constipation)
acetaminophen [Tylenol Extra Strength] 500 mg tablet
1,000 mg PO Q6HPRN PRN (Reason: mild pain) Qty: 1 0RF
ibuprofen 200 mg tablet
400 mg PO Q6HPRN PRN (Reason: moderate pain) Qty: 1 0RF
oxycodone 5 mg tablet
5 mg PO Q4HPRN PRN (Reason: breakthrough/severe pain) Qty: 7 0RF
Referrals:
Love Davila MD [Family Provider] -
Interventions
Interventions:
*Risk Screen - Suicide Last Done: 09/15/24 21:35
*General Assessment Last Done: 09/15/24 15:37
*Neglect/Abuse Screening Last Done: 09/15/24 21:35
*ED COVID-19 Vaccine History Last Done: 09/15/24 21:35
[facility] Assessment Last Done: 09/15/24 21:35
Discharge Date and Time
Print Language: TURKMEN
[2024-09-15 15:57] LABS: % Basophils 0.8 % (0-2); % Eosinophils 1.7 % (0-6); % Immature Granulocytes 0.2 % (0-0.5); % Lymphocytes 40.3 % (20.5-51.1); % Monocytes 11.1 % (1.7-9.3); % Neutrophils 45.9 % (42.2-75.2); Absolute Eosinophils 0.1 10^3/uL (0-0.7); Absolute Lymphocytes 2.1 10^3/uL (1.2-3.4); Absolute Monocytes 0.6 10^3/uL (0.1-0.6); Absolute Neutrophils 2.4 10^3/uL (1.4-6.5); Hematocrit 38.8 % (39.0-52.0); Hemoglobin 12.6 g/dL (13.0-18.0); Mean Corp Hgb Conc. 32.5 g/dL (33.0-37.0); Mean Corpuscular Hgb 27.6 pg (27.0-31.0); Mean Corpuscular Volume 85.1 fL (80.0-94.0); Mean Platelet Volume 9.9 fL (7.4-10.4); Nucleated Red Blood Cells % 0 % (-); Platelet Count 241 10^3/uL (130-400); Red Blood Cell Count 4.56 10^6/uL (4.70-6.10); Red Cell Dist. Width 21.8 % (11.5-14.5); White Blood Cell Count 5.2 10^3/uL (4.8-10.8)
[2024-09-15 16:10] LABS: ALT (SGPT) 20 U/L (0-50); AST (SGOT) 28 U/L (17-59); Albumin 4.6 g/dl (3.5-5.0); Alkaline Phosphatase 86 U/L (38-126); Blood Urea Nitrogen 36 mg/dl (9-20); Calcium 9.7 mg/dl (8.4-10.2); Carbon Dioxide 26 mmol/L (22-30); Chloride 107 mmol/L (98-107); Glucose 113 mg/dl (70-99); Potassium 4.1 mmol/L (3.5-5.1); Sodium 144 mmol/L (135-145); Total Bilirubin 0.8 mg/dl (0.2-1.3); Total Protein 7.7 g/dl (6.3-8.2); eGFR 52.09
[2024-09-15 16:55] LABS: TSH 4.41 uIU/ml (0.47-4.68)
[2024-09-15 18:54] VITALS: BP 157/103
[2024-09-15] MEDS: NSS 1000 IV (21:34)
[2024-09-15 23:31] VITALS: BP 167/101
[2024-09-15 23:32] VITALS: BP 171/126
[2024-09-16] VITALS (21 sets, daily range): BP systolic 124–181; BP diastolic 77–123
--- NOTE | 2024-09-16 00:56 | HPS.HSE ---
Family Physician
-
Family Physician: Love Davila MD
Chief Complaint
-
Abd Pain / Distention
History of Present Illness
Patient is a 74y M with PMH significant for long-standing achalasia who presents to ED complaining of progressive weight loss, fatigue, abdominal distention / pain and N/V. Patient reports long standing issues with achalasia followed at [facility].
He had LES surgery about 20 years ago and did well for a time; however, he has had recurrent issues with swallowing, N/V and weight loss over the past 2 years or so. Patient notes that he has had significant abdominal distention / swelling /
discomfort over the past 2 months. He notes decreased frequency of stools and states that he has not moved his bowels in a week. He does report some continued passage of flatus including this evening.
Medical History
Past Medical History
Past Medical History: Reports Other
Additional Past Medical History:
Achalasia
GERD
ADHD
Depression
Past Surgical History: Reports Other
Additional Past Surgical History:
Umbilical hernia Repair
Inguinal Hernia Repair
LES Surgery (20y ago)
Social History
Tobacco: Non-smoker
Alcohol: None
Drug: None
Family History
Family History: Other (Sister: Achalasia)
Allergies / Home Medications
Allergies reflects when Allergies were last updated in [facility].
Home Medications with original date entered in [facility]
Allergy/Medication List:
Allergies
Allergy/AdvReac Type Severity Reaction Status Date / Time
No Known Allergies Allergy Verified 09/15/24 15:37
Home Medications
quetiapine 400 mg tablet 400 mg PO HS Mental Health/Anxiety 03/19/24
dextroamphetamine-amphetamine ER 25 mg 24hr capsule,extend release (Adderall XR) 25 mg PO DAILY 06/12/24
mirtazapine 30 mg tablet (Remeron) 30 mg PO HS 06/12/24
sertraline 100 mg tablet (Zoloft) 200 mg PO DAILY 06/12/24
Review of Systems
-
History Source: Patient
A 12 point ROS was completed and negative except as noted: Yes
Constitutional: Reports Weight Loss and Fatigue; Denies Fever or Chills
EENT: Denies Sore Throat
Respiratory: Denies Cough or Trouble Breathing
Cardiac: Denies Chest Pain or Palpitations
Abdomen/GI: Reports Abdominal Pain, Nausea, Vomiting, Constipated and Anorexia; Denies Diarrhea
: Denies Dysuria, Frequency or Flank Pain
Musculoskeletal: Denies Joint Pain or Edema
Neurological: Denies Dizzy or Headache
Psych: Denies Depression or Anxiety
Physical Exam
Vital Signs
Vital Signs
Temp Pulse Resp BP Pulse Ox
98.5 F 77 14 171/126 93
09/15/24 18:54 09/15/24 23:36 09/15/24 23:36 09/15/24 23:32 09/15/24 23:36
Physical Exam
General: Other (74y M in mild distress due to abdominal pain.)
HEENT: PERRLA and Other (Dry MM.)
Respiratory: Clear; No Wheezes, Rales or Rhonchi
Cardiac: S1/S2 and Regular Rhythm; No Murmur
GI: Other (Abdomen is markedly distended / tympanic. Exquisitely tender especially along the L abdomen. Pos voluntary guarding. No rebound. Not tense / firm. )
Musculoskeletal: No Clubbing, No Cyanosis and No Edema
Neuro: AO x 3
Laboratory Results
-
09/15/24 15:43
09/15/24 15:43
Laboratory Results
Total Bilirubin 0.8 mg/dl (0.2-1.3) 09/15/24 15:43
AST 28 U/L (17-59) 09/15/24 15:43
ALT 20 U/L (0-50) 09/15/24 15:43
Alkaline Phosphatase 86 U/L (38-126) 09/15/24 15:43
Impression/Plan
-
A/P: Patient is a 74y M with PMH significant for achalasia who presents to ED complaining of two months of abdominal pain and distention.
Sigmoid Volvulus
Abdominal Distention secondary to the above
- Admit for further evaluation and treatment.
- No current evidence of acute warning signs/ peritonitis / etc.
- NPO, IVFs, symptom control with pain meds and antiemetics.
- GI and Colorectal Surgery consulted.
- Plan for sigmoidoscopy / decompression in AM.
- Will likely require eventual sigmoid resection for definitive treatment.
- Follow for any new / worsening symptoms.
- A lactate level has been ordered but is still pending.
- May need urgent surgical intervention should signs of peritonitis develop.
KALPESH
- SCr = 1.4 with prior baseline of 0.8.
- Likely prerenal due to poor PO intake, etc.
- IVF support and follow for improvement in labs / lytes.
Elevated Blood Pressure
- Patient with no formal history of HTN and on no medications.
- BP significantly elevated in the ED this evening - ? component due to uncontrolled pain - though not much change even with reported improvement in pain symptom.
- IV hydralazine now and PRN.
- Begin oral regimen if needed once acute GI issues are resolved.
- Continue efforts at pain control.
Achalasia
- Patient notes ongoing upper GI symptoms for the past few years related to achalasia.
- Followed at [facility].
- PPI daily for now.
- Follow for tolerance of PO diet once acute GI issues addressed / resolved.
- Follow-up with [facility] as an outpatient after discharge.
Anxiety / Depression
- Stable. Hold PO medications acutely.
DVT Prophylaxis: SCDs
Code Status: Full
[2024-09-16] MEDS: APRESOLINE 10 MG IV (01:23)
[2024-09-16 03:05] LABS: Lactic Acid 0.9 mmol/L (0.7-2.0)
[2024-09-16] MEDS: ZOFRAN 4 MG IV (03:56)
[2024-09-16] MEDS: DILAUDID 0.5 MG IV (03:56)
[2024-09-16] MEDS: LR 1000 IV ×3 (03:57→16:57)
--- NOTE | 2024-09-16 04:24 | CON.GI ---
Consultation
-
Date/Time Consultation Requested: 09/16/24 0149
Date/Time Consultation Performed: 09/16/24 9385
Requesting Provider: Dr. Kar Herrmann
Performing Provider: Dr. Timothy Woo
Reason for Consultation: Sigmoid Volvulus,
Medical History
Chief Complaint / HPI
Chief Complaint: Abd pain, distension
History of Present Illness:
Mr. Singh is a 74 y.o male with past medical history of achalasia, left inguinal hernia (s/p lap repair 06/12), chronic constipation, and prior dilated, redundant sigmoid (seen on previous imaging, 02/2024 and 07/2024) who presented to the ED
with abdominal pain and distension. Found to have CT findings concerning for a sigmoid volvulus for which Gastroenterology has been consulted.
Patient reports ongoing abdominal distension, bloating and discomfort over the past several weeks to two months. States chronic constipation at baseline and was having small pellet like stools once every 4-5 days. States this has always been an
issue, however over the past 6-7 days he's noticed progressive worsening abdominal distension along with nausea and occasional episodes of NBNB emesis. Has had fatigue and unintentional weight loss as well during this time due to poor p.o intake.
Notes a history of achalasia as well for which he follows at [facility] due to recurrent issues with dysphagia. Yesterday, he noted progressive worsening distension and discomfort which ultimately made him come to the ED. Otherwise, denies any abdominal
pain currently or other fevers/chills/night sweats or other constitutional symptoms. Last bowel movement about one week ago, passing flatus yesterday evening. He is not on any antiplatelets or anticoagulants.
Of note, previous KUB 08/06/2024 for constipation revealed a markedly dilated air-filled bowel noted measuring up to 17 cm in the upper abdomen, likely representing sigmoid colon when compared with prior exams. No definite dilated small bowel loops.
Air and stool seen scattered throughout the colon and rectum with overall severe colonic stool burden. No evidence for free intraperitoneal air. Prior CT Abd/pelvis 02/2024 revealed significant gaseous distention of the sigmoid colon in the upper
abdomen measuring up to 10.6 cm in transverse diameter.
In the ED, patient was afebrile and HD-stable. Labs revealed BUN 36 and Production Trainer 1.4 (previous Production Trainer 0.8) and lactic acid 0.9. CBC without leukocytosis with WBC 5.[address] Abd/pelvis w/ IV contrast marked distention of a loop of colon,
specifically with marked gaseous distension and twisting of the sigmoid colon measuring up to 16 cm in dimension with findings highly suggestive of a sigmoid volvulus.
Past Medical History
Past Medical History: Other (Achalasia, chronic constipation, GERD, Depression)
Past Surgical History: Other (Inguinal hernia repair, umbilical hernia repair)
Social History
Tobacco: Non-Smoker
Alcohol: None
Drug: None
Family History
Family History: Reviewed & Not Pertinent
Allergies / Home Medications
Allergy/AdvReac Type Severity Reaction Status Date / Time
No Known Allergies Allergy Verified 09/15/24 15:37
�Medication �Instructions �Recorded
quetiapine 400 mg tablet 400 mg PO HS Mental Health/Anxiety 03/19/24
dextroamphetamine-amphetamine ER 25 mg PO DAILY 06/12/24
25 mg 24hr capsule,extend release
(Adderall XR)
mirtazapine 30 mg tablet (Remeron) 30 mg PO HS 06/12/24
sertraline 100 mg tablet (Zoloft) 200 mg PO DAILY 06/12/24
Review of Systems
-
All other systems: A 12 pt ROS was Negative except as stated above in HPI
Vital Signs
Temp Pulse Resp BP Pulse Ox
98.5 F 76 14 165/116 93
09/15/24 18:54 09/16/24 01:23 09/15/24 23:36 09/16/24 01:23 09/15/24 23:36
Physical Exam
Exam
General: No Apparent Distress and Comfortable
HEENT: Anicteric and Moist Mucous Membranes
Respiratory: Non Labored Respirations and Other (Normal WOB on room air)
Cardiac: Other (RR on tele)
GI: Distended and Other (Marked distension with tympany, TTP in LLQ with voluntary guarding, no involuntary guarding or rebound tenderness)
Skin: Warm
Neuro: AO x 3 and Nonfocal/Grossly Intact
Psych: Calm
Results
WBC 5.2 10^3/uL (4.8-10.8) 09/15/24 15:43
Hgb 12.6 g/dL (13.0-18.0) L 09/15/24 15:43
Hct 38.8 % (39.0-52.0) L 09/15/24 15:43
MCV 85.1 fL (80.0-94.0) 09/15/24 15:43
Plt Count 241 10^3/uL (130-400) 09/15/24 15:43
Absolute Neuts (auto) 2.4 10^3/uL (1.4-6.5) 09/15/24 15:43
Sodium 144 mmol/L (135-145) 09/15/24 15:43
Potassium 4.1 mmol/L (3.5-5.1) 09/15/24 15:43
Chloride 107 mmol/L (98-107) 09/15/24 15:43
Carbon Dioxide 26 mmol/L (22-30) 09/15/24 15:43
BUN 36 mg/dl (9-20) H 09/15/24 15:43
Creatinine 1.4 mg/dL (0.7-1.3) H 09/15/24 15:43
Calcium 9.7 mg/dl (8.4-10.2) 09/15/24 15:43
Total Bilirubin 0.8 mg/dl (0.2-1.3) 09/15/24 15:43
AST 28 U/L (17-59) 09/15/24 15:43
ALT 20 U/L (0-50) 09/15/24 15:43
Alkaline Phosphatase 86 U/L (38-126) 09/15/24 15:43
Diagnostic Image Results: As above
Assessment / Plan
-
Mr. Singh is a 74 y.o male with past medical history of achalasia, left inguinal hernia (s/p lap repair 06/12), chronic constipation, and prior dilated, redundant sigmoid (seen on previous imaging, 02/2024 and 07/2024) who presented to the ED
with abdominal pain, distension and nausea/vomiting. Found to have CT findings concerning for a sigmoid volvulus for which Gastroenterology has been consulted.
#Sigmoid Volvulus
#Acute on Chronic Abdominal Distension
#Chronic Constipation prior #Increased Sigmoid Colonic Dilatation
#Nausea/Vomiting
#Hx of Achalasia
Impression: Patient presenting with worsening abdominal distension, bloating and discomfort along with nausea/vomiting over the past two weeks. Passing flatus but without any recent BM in about one week with worsening distension found to have a
sigmoid volvulus on CT imaging. Suspect acute on chronic sigmoid colonic dilatation given his previous KUB demonstrating air-filled sigmoid colon up to 17 cm seen on a previous KUB back on 08/06/2024. Marked distension on abdominal exam with
tympany and mild to moderate TTP in LLQ but without any peritoneal signs. Recent labs reassuring. However, now with CT evidence of a sigmoid volvulus and would benefit from an urgent flex-sig for colonic decompression and potential detorsion.
Recommendations:
- Keep NPO
- IVF to maintain euvolemia
- F/u repeat AM labs
- Plan for urgent Flex-Sig this AM on 09/16/2024 for endoscopic decompression and detorsion
- Discussed risks and benefits with patient including increased risk for bleeding, infection and perforation
- Recommend CRS consult as patient would benefit from sigmoidectomy given high rate of recurrence
- Continue home PPI given hx of achalasia. Ensure aspiration precautions
- Pain control and IV anti-emetics PRN. Minimize opioids as much as possible
- Rest of care per primary team
Data Reviewed
-
Radiology: Image Personally Visualized and interpreted and Report Reviewed by me
CT Scan: Image Personally Visualized and interpreted and Report Reviewed by me
Old Records: Reviewed
-
-
Thank you for consultation and allowing me to participate in the patient's care. Please call the dehydrogenation operator head GI physician during the after hours with any questions or concerns.
--- NOTE | 2024-09-16 07:32 | PTCARENOTE ---
Pt vss stable, transferred in bed, labs drawn. rpeort given to oncoming shift Jeaneth PRICE.
[2024-09-16 07:39] LABS: Hematocrit 38.1 % (39.0-52.0); Hemoglobin 11.9 g/dL (13.0-18.0); Mean Corp Hgb Conc. 31.2 g/dL (33.0-37.0); Mean Corpuscular Hgb 27.6 pg (27.0-31.0); Mean Corpuscular Volume 88.4 fL (80.0-94.0); Mean Platelet Volume 10.7 fL (7.4-10.4); Platelet Count 187 10^3/uL (130-400); Red Blood Cell Count 4.31 10^6/uL (4.70-6.10); Red Cell Dist. Width 21.6 % (11.5-14.5); White Blood Cell Count 5.1 10^3/uL (4.8-10.8)
[2024-09-16 07:57] LABS: Blood Urea Nitrogen 30 mg/dl (9-20); Calcium 8.9 mg/dl (8.4-10.2); Carbon Dioxide 24 mmol/L (22-30); Chloride 109 mmol/L (98-107); Glucose 103 mg/dl (70-99); Potassium 4.4 mmol/L (3.5-5.1); Sodium 140 mmol/L (135-145); eGFR > 60.00
[2024-09-16] MEDS: PROTONIX IV 40 MG IV (08:38)
[2024-09-16] MEDS: NSS (PRESERVATIVE FREE) 10 ML IV (08:38)
--- NOTE | 2024-09-16 09:33 | PTCARENOTE ---
Patient recieved into ICU from PACU with spO2 at 98% on 4L NC, IVF infusing into right ac PIV, oriented x4, still mildly drowsy from general anesthesia.
--- NOTE | 2024-09-16 11:34 | CON.CRS ---
Consultation
-
Date/Time Consultation Requested: 09/15/2024, 01:49
Date/Time Consultation Performed: 09/16/2023, 08:45
Requesting Provider: Kar Herrmann DO
Performing Provider: Rigoberto Parikh MD
Reason for Consultation: volvulus
Medical History
-
Chief Complaint: abdominal pain/distention
History of Present Illness:
74-year-old male, with a history of achalasia and 2 prior hernia repairs, presents to the ER late yesterday complaining of weight loss, abdominal distention, abdominal pain, and nausea and vomiting. The patient states he has never had symptoms like
this before. He does have a history of achalasia and is currently followed at [facility]. He has noted that he has had abdominal distention and swelling over the past 2 months but more recently it has been worsening in nature. He has not moved his
bowels in about a week prior to coming to the ER. CT of the abdomen and pelvis showed a marked distention of a loop of colon highly suggestive of sigmoid volvulus. No evidence of intraperitoneal air. His vitals have remained normal and his WBC has
been normal. Given the finding on CT, gastroenterology was urgently consulted and he underwent a successful decompression by Dr. Woo this morning. Since his decompression, the patient states he feels 'neutral'. He has no pain currently. He is
much less distended since the scope. Given the above, we have been consulted for further surgical opinion.
Past Medical History
Past Medical History: Other (Achalasia, chronic constipation, GERD, depression)
Past Surgical History: Other (Inguinal hernia repair, umbilical hernia repair)
Social History
Tobacco: Non-Smoker
Alcohol: None
Drug: None
Family History
Family History: Reviewed & Not Pertinent
Allergies / Home Medications
Allergy/AdvReac Type Severity Reaction Status Date / Time
No Known Allergies Allergy Verified 09/15/24 15:37
�Medication �Instructions �Recorded �Confirmed �Type
quetiapine 400 mg tablet 400 mg PO HS Mental Health/Anxiety 03/19/24 09/16/24 History
dextroamphetamine-amphetamine ER 25 mg PO DAILY Mental 06/12/24 09/16/24 History
25 mg 24hr capsule,extend release Health/Anxiety
(Adderall XR)
mirtazapine 30 mg tablet (Remeron) 30 mg PO HS Mental Health/Anxiety 06/12/24 09/16/24 History
sertraline 100 mg tablet (Zoloft) 200 mg PO DAILY Mental 06/12/24 09/16/24 History
Health/Anxiety
Review of Systems
-
History Source: Patient
Abdomen/GI: Abdominal Pain, Nausea, Vomiting and Constipated
A 10 point review of systems was completed, and was negative except as per HPI.
Physical Exam
Vital Signs
Temp 97.6 F 09/16/24 11:32
Pulse 70 09/16/24 11:00
Resp Rate 10 09/16/24 11:00
Blood pressure 141/83 09/16/24 10:00
SaO2 99 09/16/24 11:00
09/15/24 09/16/24 09/17/24
06:59 06:59 06:59
Actual Weight 63.2 kg
Body Mass Index (BMI) 20.0
Lab Results / Allergies
09/16/24 07:10
09/16/24 07:10
WBC 5.1 10^3/uL (4.8-10.8) 09/16/24 07:10
Hgb 11.9 g/dL (13.0-18.0) L 09/16/24 07:10
Hct 38.1 % (39.0-52.0) L 09/16/24 07:10
Plt Count 187 10^3/uL (130-400) D 09/16/24 07:10
Abs Immat Gran (auto) 0.0 10^3/uL (0-0.05) 09/15/24 15:43
Neutrophils % 45.9 % (42.2-75.2) 09/15/24 15:43
Allergy/AdvReac Type Severity Reaction Status Date / Time
No Known Allergies Allergy Verified 09/15/24 15:37
Physical Exam
General: Well Developed, Well Nourished and No Apparent Distress
GI: Soft, Non Tender and Non Distended
Skin: Warm and Dry
Neuro: AO x 3
Data Reviewed
-
CT Scan: Image Personally Visualized and interpreted, Report Reviewed by me and Discussed with Patient
Labs: Labs Reviewed by me, Discussed with Physician and Discussed with Family
Old Records: Reviewed
Assessment / Plan
-
Assessment: 74-year-old male with abdominal pain, distention, and lack of BM for 1 week found to have a volvulus on CT and underwent a successful decompression this morning by GI
Plan:
Given his sigmoid colon volvulus, we will plan on performing a sigmoidectomy, likely this on 09/18. Okay for clear liquids from our standpoint today. Will order magnesium citrate this evening to start a bowel prep. Will undergo a full
bowel prep tomorrow. Discussed with the patient who is in agreement.
--- NOTE | 2024-09-16 11:45 | PTCARENOTE ---
Patient voiding in the bathroom with stand by assistance, RN awaiting updated orders for clear liquid diet per surgery
--- NOTE | 2024-09-16 14:22 | PTCARENOTE ---
Called report to receiving unit RN on
--- NOTE | 2024-09-16 14:48 | W.PN.UPDATE ---
Update Note
Progress Note Update
I spoke to the patient. Surgery will actually be scheduled for tomorrow afternoon. Bowel prep ordered. Xray in AM. Enemas x 2. Discussed with hospitalist and nursing. Patient in agreement. Clear liquids today, npo at midnight.
--- NOTE | 2024-09-16 15:12 | SUR.OPER ---
Surgery came to bedside as patient was transferring to [address] [place] [address] via wheelchair and updated pt and pt sister that he will go to surgery tomorrow now, not . See new orders/MAR/flow sheets for further care details.
[2024-09-16] MEDS: NULYTELY SOLUTION 4 LITERS PO (15:13)
[2024-09-16] MEDS: NEOMYCIN 1000 MG PO ×3 (15:19→22:57)
[2024-09-16] MEDS: FLAGYL 1000 MG PO ×3 (15:20→23:26)
--- NOTE | 2024-09-16 16:40 | W.PN.HOSP.TC ---
Today's Communication/Plan
-
Assessment / Plan
Assessment / Plan
Gen-AAOx3, NAD
HEENT-NC, AT, anicteric, clear oral mm
Neck-supple
CV-reg, no M, +S1/S2
Lungs-clear B/L
Abd-soft, NT, ND
Musculoskeletal-no edema, no deformity
Skin-warm and dry
Neuro-grossly non-focal
Psych-calm, cooperative
Patient is a 74-year-old male with a medical history of longstanding achalasia who presented with abdominal distention with pain and nausea with vomiting. 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
Sigmoid volvulus:
-Underwent sigmoidoscopy with decompression early in the morning on 09/16, tolerated procedure well
-Evaluated by colorectal surgery with plan for sigmoidectomy tomorrow 09/17, bowel prep tonight, clear liquid diet for now and n.p.o. after midnight
-GI and colorectal surgery input appreciated
KALPESH:
-Mild, resolving
-continue IV fluids
-Baseline creatinine appears to be around 0.8
CODE STATUS: Full code
Anticipated Discharge: > 48 hours
Subjective/Interval History
-
Date of Service: September 16, 2024
Patient was seen and examined at bedside this morning. No acute distress. Feels sleepy after sigmoidoscopy but abdomen feels much better.
Objective Data
-
Labs:
Laboratory Results
09/16/24
07:10
WBC 5.1
Hgb 11.9 L
Hct 38.1 L
Plt Count 187 D
Sodium 140
Potassium 4.4
Chloride 109 H
Carbon Dioxide 24
BUN 30 H
Creatinine 1.1
Glucose 103 H
Calcium 8.9
Vital Signs:
Vital Signs
Temp Pulse Resp BP Pulse Ox
97.6 F 78 16 150/90 96
09/16/24 11:32 09/16/24 13:15 09/16/24 13:15 09/16/24 12:00 09/16/24 13:15
I&O
09/15/24 09/16/24 09/17/24
06:59 06:59 06:59
Intake Total 1000 / 1000 1465 / 1465
Output Total 0 / 0
Balance 1000 / 1000 1465 / 1465
Review of Systems
-
History Source: Patient
All other systems: Reviewed and negative
Physical Exam
-
General: No Apparent Distress
[2024-09-17] VITALS (11 sets, daily range): BP systolic 140–175; BP diastolic 82–110
[2024-09-17] MEDS: LR 1000 IV ×2 (01:43→09:25)
[2024-09-17 06:08] LABS: % Basophils 0.4 % (0-2); % Eosinophils 1.8 % (0-6); % Immature Granulocytes 0.3 % (0-0.5); % Lymphocytes 28.4 % (20.5-51.1); % Monocytes 8.8 % (1.7-9.3); % Neutrophils 60.3 % (42.2-75.2); Absolute Eosinophils 0.1 10^3/uL (0-0.7); Absolute Lymphocytes 1.9 10^3/uL (1.2-3.4); Absolute Monocytes 0.6 10^3/uL (0.1-0.6); Hematocrit 42.6 % (39.0-52.0); Hemoglobin 13.4 g/dL (13.0-18.0); Mean Corp Hgb Conc. 31.5 g/dL (33.0-37.0); Mean Corpuscular Hgb 27.5 pg (27.0-31.0); Mean Corpuscular Volume 87.3 fL (80.0-94.0); Mean Platelet Volume 10.7 fL (7.4-10.4); Nucleated Red Blood Cells % 0 % (-); Platelet Count 245 10^3/uL (130-400); Red Blood Cell Count 4.88 10^6/uL (4.70-6.10); Red Cell Dist. Width 21.6 % (11.5-14.5); White Blood Cell Count 6.7 10^3/uL (4.8-10.8)
[2024-09-17 06:12] LABS: INR 0.94; PT 12.9 Sec (11.4-14.6)
[2024-09-17 06:13] LABS: APTT 31.4 Sec (23.4-35.0)
[2024-09-17 06:27] LABS: Blood Urea Nitrogen 21 mg/dl (9-20); Calcium 9.4 mg/dl (8.4-10.2); Carbon Dioxide 22 mmol/L (22-30); Chloride 103 mmol/L (98-107); Estimated Creatinine Clearance 70 ml/min; Glucose 87 mg/dl (70-99); Potassium 4.2 mmol/L (3.5-5.1); Sodium 137 mmol/L (135-145); eGFR > 60.00
[2024-09-17] MEDS: PROTONIX IV 40 MG IV (09:24)
[2024-09-17] MEDS: NSS (PRESERVATIVE FREE) 10 ML IV (09:24)
[2024-09-17] MEDS: NULYTELY SOLUTION 2 LITERS PO (09:26)
--- NOTE | 2024-09-17 10:32 | W.PN.CRS1 ---
Today's Communication / Plan
-
Surgery today
Needs more bowel prep now with an enema
Assessment/Plan
-
Assessment: 74-year-old male with abdominal pain, distention, and lack of BM for 1 week found to have a volvulus on CT and underwent a successful decompression this morning by GI
Plan:
-Will give a small bowel prep now prior to surgery. Also will give an enema. Discussed with nursing.
-Remain n.p.o.
-Sigmoidectomy later this afternoon with Dr. Parikh
-X-ray reviewed. Moderate to marked colonic distention, slightly less prominent.
Subjective Data
Subjective Data
Date of Service: September 17, 2024
Patient states he was not able to finish some of the bowel prep yesterday. He also states he has not had any bowel movements from the prep. He only had 1 formed brown bowel movement yesterday. He feels much flatter and denies any pain.
Objective Data
-
Vital Signs
Temp Pulse Resp BP Pulse Ox
98.2 F 85 16 146/104 96
09/17/24 09:18 09/17/24 09:18 09/17/24 09:18 09/17/24 09:18 09/17/24 09:18
Intake & Output
09/16/24 09/17/24 09/18/24
06:59 06:59 06:59
Intake Total 1000 / 1000 1465 / 1465
Output Total 450 / 450
Balance 1000 / 1000 1015 / 1015
Intake:
Oral fluids 340 / 340
IV fluids (Total) 1000 / 1000 1125 / 1125
Lr 1,000 ml @ 125 mls/hr IV . 375 / 375
Q8H [facility] Rx#:[id number]
normosol 0 / 0
nss 1000 / 1000
Output:
Urine, Voided 450 / 450
Other:
Number of approximated MODERATE 3
amounts of urine
Number of approximated LARGE 1
amounts of urine
Lab Results
09/17/24 04:54
09/17/24 04:54
Physical Exam
-
General: No Acute Distress and AOx3
Abdomen: Soft, Non Distended and Non Tender
Skin: Warm and Dry
--- NOTE | 2024-09-17 12:39 | CM ---
Met with pt at bedside
Pt reports he lives alone in an apartment; 3 steps to enter
Independent at baseline, retired, no device with ambulation
DME - rolling walker, single point cane
SNF/HH - denies past hx
Has ride at discharge
PCP - uses [facility] as PCP
Pharm - [facility]
Scheduled for OR today
CM will remain available for discharge needs
Plan - anticipate home with VN vs no needs
--- NOTE | 2024-09-17 13:56 | W.PN.HOSP.TC ---
Today's Communication/Plan
-
Assessment / Plan
Assessment / Plan
Gen-AAOx3, NAD
HEENT-NC, AT, anicteric, clear oral mm
Neck-supple
CV-reg, no M, +S1/S2
Lungs-clear B/L
Abd-soft, NT, ND, decreased bowel sounds
Musculoskeletal-no edema, no deformity
Skin-warm and dry
Neuro-grossly non-focal
Psych-calm, cooperative
Patient is a 74-year-old male with a medical history of longstanding achalasia who presented with abdominal distention with pain and nausea with vomiting. 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
Sigmoid volvulus:
-Underwent sigmoidoscopy with decompression early in the morning on 09/16, tolerated procedure well
-Evaluated by colorectal surgery with plan for sigmoidectomy this afternoon 09/17, continuing bowel prep, also will receive an enema prior to surgery
-GI and colorectal surgery input appreciated
KALPESH:
-Mild, resolved
-continue IV fluids while n.p.o.
-Baseline creatinine appears to be around 0.8
CODE STATUS: Full code
Anticipated Discharge: > 48 hours
Subjective/Interval History
-
Date of Service: September 17, 2024
Patient was seen and examined at bedside this morning. He has had only very small bowel movements since decompression yesterday. Attempting bowel prep and enema currently in anticipation of sigmoidectomy this afternoon.
Objective Data
-
Labs:
Laboratory Results
09/17/24
04:54
WBC 6.7
Hgb 13.4
Hct 42.6
Plt Count 245 D
PT 12.9
INR 0.94
APTT 31.4
Sodium 137
Potassium 4.2
Chloride 103
Carbon Dioxide 22
BUN 21 H
Creatinine 0.8
Glucose 87
Calcium 9.4
Vital Signs:
Vital Signs
Temp Pulse Resp BP Pulse Ox
98.2 F 76 16 152/110 97
09/17/24 12:43 09/17/24 12:43 09/17/24 12:43 09/17/24 12:43 09/17/24 12:43
I&O
09/16/24 09/17/24 09/18/24
06:59 06:59 06:59
Intake Total 1000 / 1000 1465 / 1465
Output Total 450 / 450
Balance 1000 / 1000 1015 / 1015
Review of Systems
-
History Source: Patient
All other systems: Reviewed and negative
Physical Exam
-
General: No Apparent Distress
[2024-09-17] MEDS: NEURONTIN 600 MG PO (14:52)
[2024-09-17] MEDS: HEPARIN 5000 UNITS SC (14:53)
[2024-09-17] MEDS: TYLENOL 1000 MG PO (14:53)
--- NOTE | 2024-09-17 15:05 | WOUNDNOTE ---
[facility] RN Note: Patient visited for stoma siting. Procedure and rationale for stoma siting explained to patient. Patient was assessed in sitting, lying and standing position. The rectus abdominal muscle was located and care was taken to avoid creases
and folds. Patients abdomen firmly distended. This bond writer explained to patient that abdominal topography may change after surgery, which may impact pouching system. Patient also made aware that surgeon will make final determination of stoma site.
Patient requested and was given a booklet on ostomy care. Will follow with patient if ostomy is created. ALBERT Eric given update. Will follow as needed.
--- NOTE | 2024-09-17 15:56 | W.PN.UPDATE ---
Update Note
Progress Note Update
Patient has not tolerated prep well in terms of taking it all down orally or having a lot of bowel function subsequently. On exam abdomen only mildly distended and non-tender. Patient admits to only mild discomfort. Film from this am with slight
improvement but still with distended sigmoid. I discussed situation earlier with Dr. Woo of GI who believes there is a chronic component to this sigmoid distension. Given this situation, I have had the patient marked for potential colostomy. I
spoke to patient again in holding and discussed above details. I told him I plan on sigmoidectomy with potential for colostomy. I will make the decision in the OR. Risks and benefits covered. Risks include but not limited to bleeding, infection,
anastomotic leak or stricture (if created), rectal stump leak (if created), ureteral injury, bowel or organ injury, sexual or urinary dysfunction, hernia, and anesthetic risks. He agrees to proceed. I also left a VM with his next of kin and sister
updating her.
--- NOTE | 2024-09-17 18:38 | W.IMMPOSTOP ---
Addendum entered and electronically signed by Rigoberto Parikh MD 09/17/24 19:04:
Patient's sister, Mel, updated in [address] [place] [address].
Original Note:
Surgical Immed Post Op Note
-
Primary Surgeon: Joaquin Parikh MD
Assisting Surgeon: SANJEEV Cee
Pre-op Diagnosis: sigmoid volvulus
Post-op Diagnosis: same
Procedure Performed: sigmoidectomy with colostomy (Saul's resection)
Anesthesia Type: general plus local
Specimen / Cultures: none
Estimated Blood Loss: 50 cc
Complications: no immediate
Operative Findings: 1) severely distended rectosigmoid 2) a number of firm stool balls noted in colon upstream to sigmoid
NGT in stomach (confirmed in OR)
Gonzales in bladder.
Will send back to med surg.
[2024-09-17] MEDS: TORADOL 10 MG IV (21:09)
[2024-09-17] MEDS: NORMOSOL-R/PLASMALYTE-A 1000 IV (21:09)
[2024-09-17] MEDS: OFIRMEV 100 IV (21:09)
[2024-09-18] VITALS (7 sets, daily range): BP systolic 140–160; BP diastolic 82–113; BMI 20.1
[2024-09-18] MEDS: TORADOL 10 MG IV ×4 (02:50→20:50)
[2024-09-18] MEDS: OFIRMEV 100 IV ×3 (02:50→14:02)
[2024-09-18] MEDS: NORMOSOL-R/PLASMALYTE-A 1000 IV ×2 (05:51→15:29)
[2024-09-18] MEDS: LR IV (07:32)
[2024-09-18] MEDS: PROTONIX IV 40 MG IV (08:23)
[2024-09-18] MEDS: NSS (PRESERVATIVE FREE) 10 ML IV (08:23)
[2024-09-18 08:31] LABS: % Basophils 0.2 % (0-2); % Eosinophils 0.1 % (0-6); % Immature Granulocytes 0.4 % (0-0.5); % Lymphocytes 13.8 % (20.5-51.1); % Monocytes 5.7 % (1.7-9.3); % Neutrophils 79.8 % (42.2-75.2); Absolute Immature Granulocytes 0.1 10^3/uL (0-0.05); Absolute Lymphocytes 1.8 10^3/uL (1.2-3.4); Absolute Monocytes 0.7 10^3/uL (0.1-0.6); Absolute Neutrophils 10.2 10^3/uL (1.4-6.5); Hematocrit 42.6 % (39.0-52.0); Hemoglobin 13.6 g/dL (13.0-18.0); Mean Corp Hgb Conc. 31.9 g/dL (33.0-37.0); Mean Corpuscular Hgb 27.8 pg (27.0-31.0); Mean Corpuscular Volume 86.9 fL (80.0-94.0); Mean Platelet Volume 10.7 fL (7.4-10.4); Nucleated Red Blood Cells % 0 % (-); Platelet Count 254 10^3/uL (130-400); Red Cell Dist. Width 21.3 % (11.5-14.5); White Blood Cell Count 12.7 10^3/uL (4.8-10.8)
[2024-09-18 09:00] LABS: Blood Urea Nitrogen 17 mg/dl (9-20); Calcium 8.8 mg/dl (8.4-10.2); Carbon Dioxide 25 mmol/L (22-30); Chloride 99 mmol/L (98-107); Estimated Creatinine Clearance 71 ml/min; Glucose 83 mg/dl (70-99); Magnesium 1.9 mg/dl (1.6-2.3); Phosphorus 4.3 mg/dl (2.5-4.5); Potassium 4.8 mmol/L (3.5-5.1); Sodium 136 mmol/L (135-145); eGFR > 60.00
--- NOTE | 2024-09-18 11:01 | W.PN.CRS1 ---
Today's Communication / Plan
-
DC Gonzales
Out of bed
Ostomy care
Lovenox
NPO with NG tube
Assessment/Plan
-
POD#1 sigmoidectomy with colostomy (Saul's resection)
Vitals normal
Hgb 13.6, WBC 12.7
-Continue n.p.o. with NG tube and IV fluids. Will discuss timing of NG tube removal with Dr. Parikh.
-Discontinue Gonzales
-Out of bed as tolerated
-Wound ostomy nurse for teaching
-DVT prophylaxis: Teds and SCDs in place, Lovenox tonight for DVT prophylaxis
-OR pathology pending
-Appreciate hospitalist
Subjective Data
Procedure
09/17/2024- sigmoidectomy with colostomy (Saul's resection)
Subjective Data
Date of Service: September 18, 2024
Patient's pain is controlled. He has had no nausea or vomiting.
Objective Data
-
Vital Signs
Temp Pulse Resp BP Pulse Ox
98.0 F 76 16 160/91 97
09/18/24 07:35 09/18/24 07:35 09/18/24 07:35 09/18/24 07:35 09/18/24 10:24
Intake & Output
09/17/24 09/18/24 09/19/24
06:59 06:59 06:59
Intake Total 1465 / 1465 3840 / 3840
Output Total 450 / 450 1275 / 1275
Balance 1015 / 1015 2565 / 2565
Intake:
Oral fluids 340 / 340
Amount of oral supplement(s) 1000 / 1000
consumed
IV fluids (Total) 1125 / 1125 2500 / 2500
Lr 1,000 ml @ 125 mls/hr IV . 375 / 375
Q8H [facility] Rx#:[id number]
IV piggybacks 250 / 250
Amount instilled into GI Tube ( 60 / 60
Total)
Hayes Sump 60 / 60
Output:
Gastrointestinal tube output ( 175 / 175
Total)
Hayes Sump 175 / 175
Urine, Gonzales 1100 / 1100
Urine, Voided 450 / 450
Other:
Number of approximated MODERATE 3
amounts of urine
Number of approximated LARGE 1
amounts of urine
Lab Results
09/18/24 07:58
09/18/24 07:58
Physical Exam
-
General: No Acute Distress and AOx3
Abdomen: Soft, Non Distended, Tender (Mild around incision) and Other (Colostomy warm and pink)
Skin: Warm and Dry
Wound: Dressing in Place
--- NOTE | 2024-09-18 13:44 | WOUNDNOTE ---
[facility] RN NOTE: Patient with colostomy created on 09/17/2024. Ostomy with some soft brown stool, no leaking noted. Ostomy appears budded. Ostomy supplies ordered and are at bedside. Patient given ostomy book to review. He said he is not ready to look at
ostomy today. Agreeable to some teaching tomorrow. Will continue to follow with patient during inpatient stay.
--- NOTE | 2024-09-18 15:26 | W.PN.HOSP.TC ---
Today's Communication/Plan
-
Assessment / Plan
Assessment / Plan
Gen-AAOx3, NAD
HEENT-NC, AT, anicteric, NGT in place
Neck-supple
CV-reg, no M, +S1/S2
Lungs-clear B/L
Abd-soft, left-sided ostomy appears healthy, soft brown stool per ostomy
Musculoskeletal-no edema, no deformity
Skin-warm and dry
Neuro-grossly non-focal
Psych-calm, cooperative
Patient is a 74-year-old male with a medical history of longstanding achalasia who presented with abdominal distention with pain and nausea with vomiting. 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
Sigmoid volvulus:
-Underwent sigmoidoscopy with decompression early in the morning on 09/16, tolerated procedure well
-Status post OR with colorectal surgery for Saul procedure 09/17, tolerated procedure well, healthy appearing ostomy with soft brown stool output
-Remains n.p.o. with NGT in place to low intermittent wall suction
-Evaluated by colorectal surgery with plan for sigmoidectomy this afternoon 09/17, continuing bowel prep, also will receive an enema prior to surgery
-Will follow-up with surgery regarding timing of NGT removal
-GI and colorectal surgery input appreciated
KALPESH:
-Mild, resolved
-continue IV fluids while n.p.o.
-Baseline creatinine appears to be around 0.8
CODE STATUS: Full code
Anticipated Discharge: > 48 hours
Subjective/Interval History
-
Date of Service: September 18, 2024
Patient was seen and examined at bedside this morning. Status post Saul procedure yesterday which he tolerated well. Soft brown stool output from ostomy. NG tube in place to low intermittent wall suction.
Objective Data
-
Labs:
Laboratory Results
09/18/24
07:58
WBC 12.7 H
Hgb 13.6
Hct 42.6
Plt Count 254
Sodium 136
Potassium 4.8
Chloride 99
Carbon Dioxide 25
BUN 17
Creatinine 0.8
Glucose 83
Calcium 8.8
Vital Signs:
Vital Signs
Temp Pulse Resp BP Pulse Ox
97.8 F 79 18 142/87 94
09/18/24 11:10 09/18/24 11:10 09/18/24 11:10 09/18/24 11:10 09/18/24 11:10
I&O
09/17/24 09/18/24 09/19/24
06:59 06:59 06:59
Intake Total 1465 / 1465 3840 / 3840
Output Total 450 / 450 1275 / 1275 400 / 400
Balance 1015 / 1015 2565 / 2565 -370 / -370
Review of Systems
-
History Source: Patient
All other systems: Reviewed and negative
Physical Exam
-
General: No Apparent Distress
[2024-09-18] MEDS: LOVENOX 40 MG SC (17:25)
[2024-09-19] MEDS: TORADOL 10 MG IV ×4 (01:12→19:42)
[2024-09-19] MEDS: NORMOSOL-R/PLASMALYTE-A 1000 IV ×3 (02:30→23:57)
[2024-09-19 03:00] VITALS: BP 143/89
[2024-09-19] MEDS: NORMOSOL-R/PLASMALYTE-A IV (04:00)
[2024-09-19 05:11] VITALS: BMI 20.3
[2024-09-19 06:52] LABS: Blood Urea Nitrogen 21 mg/dl (9-20); Calcium 8.6 mg/dl (8.4-10.2); Carbon Dioxide 24 mmol/L (22-30); Chloride 101 mmol/L (98-107); Estimated Creatinine Clearance 71 ml/min; Glucose 53 mg/dl (70-99); Magnesium 2.2 mg/dl (1.6-2.3); Phosphorus 2.8 mg/dl (2.5-4.5); Potassium 4.3 mmol/L (3.5-5.1); Sodium 134 mmol/L (135-145); eGFR > 60.00
[2024-09-19] MEDS: DEXTROSE 50% SYRINGE 12.5 GRAMS IV (07:33)
[2024-09-19] MEDS: PROTONIX IV 40 MG IV (07:44)
[2024-09-19] MEDS: NSS (PRESERVATIVE FREE) 10 ML IV (07:44)
[2024-09-19 07:55] VITALS: BP 153/99
[2024-09-19 08:03] LABS: Glucose - Point of Care 100 mg/dl (70-99)
[2024-09-19 08:44] LABS: % Basophils 0.8 % (0-2); % Eosinophils 4.3 % (0-6); % Immature Granulocytes 0.6 % (0-0.5); % Lymphocytes 16.8 % (20.5-51.1); % Monocytes 7.3 % (1.7-9.3); % Neutrophils 70.2 % (42.2-75.2); Absolute Basophils 0.1 10^3/uL (0-0.2); Absolute Eosinophils 0.3 10^3/uL (0-0.7); Absolute Lymphocytes 1.2 10^3/uL (1.2-3.4); Absolute Monocytes 0.5 10^3/uL (0.1-0.6); Absolute Neutrophils 5.1 10^3/uL (1.4-6.5); Hematocrit 36.6 % (39.0-52.0); Hemoglobin 12.1 g/dL (13.0-18.0); Mean Corp Hgb Conc. 33.1 g/dL (33.0-37.0); Mean Corpuscular Hgb 27.8 pg (27.0-31.0); Mean Corpuscular Volume 83.9 fL (80.0-94.0); Nucleated Red Blood Cells % 0 % (-); Red Blood Cell Count 4.36 10^6/uL (4.70-6.10); Red Cell Dist. Width 21.3 % (11.5-14.5); White Blood Cell Count 7.3 10^3/uL (4.8-10.8)
--- NOTE | 2024-09-19 11:04 | W.PN.CRS1 ---
Today's Communication / Plan
-
NG tube clamping trial
Clears if NG tube removed
Assessment/Plan
-
POD#2 sigmoidectomy with colostomy (Saul's resection)
Vitals normal
Hgb 12.1, WBC 7.3
-NG tube clamping trial. If NG tube removed, will start on clears.
-Voiding post Gonzales removal
-Out of bed as tolerated
-Wound ostomy nurse for teaching
-DVT prophylaxis: Teds and SCDs in place, Lovenox tonight for DVT prophylaxis
-OR pathology pending
-Appreciate hospitalist
Subjective Data
Procedure
09/17/2024- sigmoidectomy with colostomy (Saul's resection)
Subjective Data
Date of Service: September 19, 2024
Patient states he has no abdominal pain. He denies nausea or vomiting. He is very thirsty. He is asking when he can go home.
Objective Data
-
Vital Signs
Temp Pulse Resp BP Pulse Ox
98.2 F 77 14 153/99 95
09/19/24 07:55 09/19/24 07:55 09/19/24 07:55 09/19/24 07:55 09/19/24 07:55
Intake & Output
09/18/24 09/19/24 09/20/24
06:59 06:59 06:59
Intake Total 3840 / 3840 2700 / 2700
Output Total 1275 / 1275 1250 / 1250
Balance 2565 / 2565 1450 / 1450
Intake:
Oral fluids
Amount of oral supplement(s) 1000 / 1000
consumed
IV fluids (Total) 2500 / 2500 2350 / 2350
IV piggybacks 250 / 250 200 / 200
Amount instilled into GI Tube ( 60 / 60 150 / 150
Total)
[place] Sump 60 / 60 150 / 150
Output:
Liquid stool amount 175 / 175
Colostomy 175 / 175
Gastrointestinal tube output ( 175 / 175 300 / 300
Total)
[place] Sump 175 / 175 300 / 300
Urine, Gonzales 1100 / 1100 400 / 400
Urine, Voided 375 / 375
Lab Results
09/19/24 08:19
09/19/24 04:52
Physical Exam
-
General: No Acute Distress and AOx3
Abdomen: Soft, Non Distended and Non Tender
Wound: No Signs of Infection
Incision: Clear, Dry, Intact
[2024-09-19 11:05] VITALS: BP 151/95
--- NOTE | 2024-09-19 11:38 | CM ---
CM following re: discharge planning.
Reviewed pt''s chart, met with pt.
Pt is POD#2 sigmoidectomy with colostomy (Saul's resection), continue sportive care.
Pt reports he lives alone and has supportive sister and a brother that live nearby and help as needed. Pt reports he did not use any mobile devices TALENT COORDINATOR.
PT and OT evaluations requested to determine a level of care at discharge.
IMM reviewed, placed on chart, pt has a copy.
D/C plan: home with anticipated no needs vs VN. PT and OT to confirm.
CM will follow with discharge plan updates as hospitalization progresses
--- NOTE | 2024-09-19 11:46 | WOUNDNOTE ---
[facility] RN NOTE: Patient with new colostomy created on 09/19. Stoma is pink and budded. Midline incision closed and intact. Ostomy with large amount of brown liquid stool (400 cc emptied from pouch prior to appliance change). Pouch changed with Barrier #
[id number] and pouch # [id number]. Patient has some skin folds around stoma. Pouch changed while patient laying flat and RN holding skin around the stoma when placing barrier. Barrier fits close to ribcage, but patient denies discomfort at this time. Pouch
emptying reviewed with patient who agreed to start trying to empty pouch once NG tube is removed. Patient was informed by this customs entry writer that he will need to demonstrate ability to empty pouch prior to going home. Patient states understanding and
expressed that he hopes to be able to go home. He does not want to involve his siblings with stoma care. His sacrum is intact and blanchable. 5 layer silicone border foam applied to bony prominence of sacrum and loose skin. Heels intact and and
no-sting barrier and adhesive foam applied. Patient demonstrates good ability to turn in bed. This customs entry writer instructed patient to change position frequently and keep heels off-loaded with pillows under heels when in bed to prevent PI.
[2024-09-19 12:01] LABS: Glucose - Point of Care 80 mg/dl (70-99)
--- NOTE | 2024-09-19 14:45 | PTCARENOTE ---
NGT clamped by Caron GLASS @0845, per order checked residual in 6 hours (@14:45), residual 20mls, since <250mls and patient denies N/V/pain and no distention, removed NGT and advanced to clear liquids.
--- NOTE | 2024-09-19 14:57 | PN.CDI ---
CDI
- -
CDI:
Physician Documentation Request
Admit Date: 09/16/24 01:18
Dear Doctor Paco,
Patient admitted for sigmoid volvus.
09/17 Process Control Supervisor Assessment: 'The patient meets AND and ASPEN criteria for severe protein calorie malnutrition of chronic disease due to severe muscle wasting in his temporal region and less than 75% of estimated energy needs met for
greater than 1 month.'
Based on the above information and your assessment, which of the following most accurately represents the patient's nutritional status?
Severe protein calorie malnutrition
Other (please specify)
[place] Criteria ([facility] Hospitalist 2017)
2 or more criteria must be present for either
non severe or severe malnutrition
Note that the criteria differs related to the
presence of an acute or chronic illness
Acute Illness Chronic Illness
Energy Intake Non Severe: <75% for >7 days Non Severe: <75% for >1 month
Severe: <50% for >5 days Severe: <75% for >1 month
Weight Loss Non Severe: 1-2% over 1 week Non Severe: 5% over 1 month
5% over 1 month 7.5% over 3 months
7.5% over 3 months 10% over 6 months
1 year N/A 20% over 1 year
Severe: >2% over 1 week Severe: >5% over 1 month
>5% over 1 month >7.5% over 3 months
>7.5% over 3 months >10% over 6 months
1 year N/A >20% over 1 year
Body Fat Non Severe: Mild Decrease Non Severe: Mild Loss
Severe: Moderate Decrease Severe: Severe Loss
Muscle Mass Non Severe: Mild Decrease Non Severe: Mild Loss
Severe: Moderate Decrease Severe: Severe Loss
Fluid Accumulation Non Severe: Mild Accumulation Non Severe: Mild Accumulation
Severe: Moderate to severe Severe: Moderate to severe
accumulation accumulation
Reduced Long Lines Operator Strength Non Severe: N/A Non Severe: N/A
Severe: Measurably reduced Severe: Measurably reduced
Additional criteria that can be used to Determine if Mild or Moderate Malnutrition (Merck Manual 2018)
Mild Moderate Severe
Albumin gm/dl <3.0 gm/dl <2.5 gm/dl <2.0 gm/dl
Pre Albumin mg/dl <15 gm/dl <10 mg/dl <5.0 mg/dl
BMI <18.5 <17 <16
Use of terms such as suspected, likely, concern for, or probable (associated with a specific diagnosis that is being evaluated, monitored, or treated as if it exists) are acceptable and can be coded in the inpatient setting, when documented at the
time of discharge.
Thank you,
Aimee Valente RN, BSN
CDI Specialist
Available via [place] text
Please use your independent medical judgment in providing your response.
--- NOTE | 2024-09-19 15:18 | PN.CDI ---
CDI
- -
CDI:
Physician Documentation Request
Admit Date: 09/16/24 01:18
Dear Doctor Paco,
Patient admitted for sigmoid volvulus.
09/17 Sigmoidectomy with colostomy.
Selected Entries
09/17/24
19:00 09/18/24
03:15 09/18/24
07:35
SaO2 92 98 96
Oxygen Mode of Delivery Room air Room air
Nasal Cannula flow liters per minute 2
09/18/24
10:24 09/18/24
15:20
SaO2 97 98
Oxygen Mode of Delivery Room air
Nasal Cannula flow liters per minute 2
Clarify which of the following accurately represents the patient's respiratory status following surgery:
Acute pulmonary insufficiency (following surgery)
Hypoxia
Other
Additional information for Pulmonary Insufficiency:
Consider when patients require mcfp oxygen therapy postoperatively
Weaned off oxygen initially then requiring supplemental oxygen
No other definitive diagnosis to support the need for oxygen (COPD exac, CHF etc.)
Unable to wean from vent
When criteria for respiratory failure not present
May extend stay or require additional resources; may need home O2
Use of terms such as suspected, likely, concern for, or probable (associated with a specific diagnosis that is being evaluated, monitored, or treated as if it exists) are acceptable and can be coded in the inpatient setting, when documented at the
time of discharge.
Thank you,
Aimee Valente RN, BSN
CDI Specialist
Available via [place] text
Please use your independent medical judgment in providing your response.
--- NOTE | 2024-09-19 15:22 | PN.CDI ---
CDI
- -
CDI:
Physician Documentation Request
Admit Date: 09/16/24 01:18
Dear Doctor Paco,
Patient admitted for sigmoid volvulus.
09/17 Automotive Service Porter Assessment: 'The patient meets AND and ASPEN criteria for severe protein calorie malnutrition of chronic disease due to severe muscle wasting in his temporal region and less than 75% of estimated energy needs met for
greater than 1 month.'
Based on the above information and your assessment, which of the following most accurately represents the patient's nutritional status?
Severe protein calorie malnutrition
Other (please specify)
[place] Criteria ([facility] Hospitalist 2017)
2 or more criteria must be present for either
non severe or severe malnutrition
Note that the criteria differs related to the
presence of an acute or chronic illness
Acute Illness Chronic Illness
Energy Intake Non Severe: <75% for >7 days Non Severe: <75% for >1 month
Severe: <50% for >5 days Severe: <75% for >1 month
Weight Loss Non Severe: 1-2% over 1 week Non Severe: 5% over 1 month
5% over 1 month 7.5% over 3 months
7.5% over 3 months 10% over 6 months
1 year N/A 20% over 1 year
Severe: >2% over 1 week Severe: >5% over 1 month
>5% over 1 month >7.5% over 3 months
>7.5% over 3 months >10% over 6 months
1 year N/A >20% over 1 year
Body Fat Non Severe: Mild Decrease Non Severe: Mild Loss
Severe: Moderate Decrease Severe: Severe Loss
Muscle Mass Non Severe: Mild Decrease Non Severe: Mild Loss
Severe: Moderate Decrease Severe: Severe Loss
Fluid Accumulation Non Severe: Mild Accumulation Non Severe: Mild Accumulation
Severe: Moderate to severe Severe: Moderate to severe
accumulation accumulation
Reduced Railroad Watchman Strength Non Severe: N/A Non Severe: N/A
Severe: Measurably reduced Severe: Measurably reduced
Additional criteria that can be used to Determine if Mild or Moderate Malnutrition (Merck Manual 2018)
Mild Moderate Severe
Albumin gm/dl <3.0 gm/dl <2.5 gm/dl <2.0 gm/dl
Pre Albumin mg/dl <15 gm/dl <10 mg/dl <5.0 mg/dl
BMI <18.5 <17 <16
Use of terms such as suspected, likely, concern for, or probable (associated with a specific diagnosis that is being evaluated, monitored, or treated as if it exists) are acceptable and can be coded in the inpatient setting, when documented at the
time of discharge.
Thank you,
Aimee Valente RN, BSN
CDI Specialist
Available via [place] text
Please use your independent medical judgment in providing your response.
--- NOTE | 2024-09-19 15:33 | W.PN.HOSP.TC ---
Today's Communication/Plan
-
Assessment / Plan
Assessment / Plan
Gen-AAOx3, NAD
HEENT-NC, AT, anicteric, NGT clamped
Neck-supple
CV-reg, no M, +S1/S2
Lungs-clear B/L
Abd-soft, left-sided ostomy appears healthy
Musculoskeletal-no edema, no deformity
Skin-warm and dry
Neuro-grossly non-focal
Psych-calm, cooperative
Patient is a 74-year-old male with a medical history of longstanding achalasia who presented with abdominal distention with pain and nausea with vomiting. 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
Sigmoid volvulus:
-Underwent sigmoidoscopy with decompression early in the morning on 09/16, tolerated procedure well
-Status post OR with colorectal surgery for Saul procedure 09/17, tolerated procedure well, healthy appearing ostomy with soft brown stool output
-Remains n.p.o. with NGT in place now clamped
-Will follow-up with surgery regarding timing of NGT removal and starting on p.o. diet
-GI and colorectal surgery input appreciated
KALPESH:
-Mild, resolved
-continue IV fluids while n.p.o.
-Baseline creatinine appears to be around 0.8
Severe protein calorie malnutrition:
-Appreciate dietary input
-Start nutritional supplements once tolerating p.o.
CODE STATUS: Full code
Anticipated Discharge: 24 - 48 hours
Subjective/Interval History
-
Date of Service: September 19, 2024
Patient was seen and examined at bedside this morning. NG tube was clamped and patient felt no abdominal bloating or nausea.
Objective Data
-
Labs:
Laboratory Results
09/19/24 09/19/24 09/19/24
04:52 07:35 08:19
WBC Cancelled Cancelled 7.3
Hgb Cancelled Cancelled 12.1 L
Hct Cancelled Cancelled 36.6 L
Plt Count Cancelled Cancelled
Sodium 134 L
Potassium 4.3
Chloride 101
Carbon Dioxide 24
BUN 21 H
Creatinine 0.8
Glucose 53 L*
Calcium 8.6
Vital Signs:
Vital Signs
Temp Pulse Resp BP Pulse Ox
98.0 F 81 16 151/95 95
09/19/24 11:05 09/19/24 11:05 09/19/24 11:05 09/19/24 11:05 09/19/24 11:05
I&O
09/18/24 09/19/24 09/20/24
06:59 06:59 06:59
Intake Total 3840 / 3840 2700 / 2700
Output Total 1275 / 1275 1250 / 1250 50 / 50
Balance 2565 / 2565 1450 / 1450 -20 / -20
Review of Systems
-
History Source: Patient
All other systems: Reviewed and negative
Physical Exam
-
General: No Apparent Distress
[2024-09-19 15:50] VITALS: BP 155/96
--- NOTE | 2024-09-19 16:08 | WOUNDNOTE ---
WOC RN NOTE: Patient gave permission to this senior mortgage underwriter for [employer] Secure Start kit to be ordered to home. Kit was ordered via website by this senior mortgage underwriter.
[2024-09-19] MEDS: LOVENOX 40 MG SC (17:24)
[2024-09-19 18:59] LABS: Glucose - Point of Care 78 mg/dl (70-99)
[2024-09-19] MEDS: MELATONIN 5 MG PO (20:26)
[2024-09-19 21:45] LABS: Glucose - Point of Care 102 mg/dl (70-99)
[2024-09-19 23:14] VITALS: BP 155/99
[2024-09-20] MEDS: TORADOL 10 MG IV ×3 (02:36→20:46)
--- NOTE | 2024-09-20 03:01 | PTCARENOTE ---
pt's colostomy was leaking from under the wafer. I changed the appliance, educating the pt about the device. Pt also educated on burping colostomy, or calling for help if bag fills with air/stool.Pt verbalized understanding. Assessment ongoing.
[2024-09-20 05:12] LABS: Glucose - Point of Care 87 mg/dl (70-99)
[2024-09-20 07:30] VITALS: BP 172/107
[2024-09-20 07:51] LABS: Glucose - Point of Care 101 mg/dl (70-99)
[2024-09-20] MEDS: NORMOSOL-R/PLASMALYTE-A 1000 IV (08:12)
[2024-09-20] MEDS: PROTONIX IV 40 MG IV (08:13)
[2024-09-20] MEDS: NSS (PRESERVATIVE FREE) 10 ML IV (08:13)
[2024-09-20 08:23] LABS: Blood Urea Nitrogen 15 mg/dl (9-20); Calcium 8.4 mg/dl (8.4-10.2); Carbon Dioxide 25 mmol/L (22-30); Chloride 102 mmol/L (98-107); Estimated Creatinine Clearance 80 ml/min; Glucose 94 mg/dl (70-99); Magnesium 2.3 mg/dl (1.6-2.3); Phosphorus 2.4 mg/dl (2.5-4.5); Potassium 3.9 mmol/L (3.5-5.1); Sodium 134 mmol/L (135-145); eGFR > 60.00
[2024-09-20 10:26] LABS: % Basophils 0.5 % (0-2); % Eosinophils 5.5 % (0-6); % Immature Granulocytes 0.3 % (0-0.5); % Lymphocytes 19.2 % (20.5-51.1); % Monocytes 8.6 % (1.7-9.3); % Neutrophils 65.9 % (42.2-75.2); Absolute Eosinophils 0.4 10^3/uL (0-0.7); Absolute Lymphocytes 1.2 10^3/uL (1.2-3.4); Absolute Monocytes 0.6 10^3/uL (0.1-0.6); Absolute Neutrophils 4.2 10^3/uL (1.4-6.5); Hematocrit 38.3 % (39.0-52.0); Hemoglobin 12.6 g/dL (13.0-18.0); Mean Corp Hgb Conc. 32.9 g/dL (33.0-37.0); Mean Corpuscular Volume 85.1 fL (80.0-94.0); Mean Platelet Volume 10.3 fL (7.4-10.4); Nucleated Red Blood Cells % 0 % (-); Platelet Count 226 10^3/uL (130-400); Red Cell Dist. Width 21.8 % (11.5-14.5); White Blood Cell Count 6.4 10^3/uL (4.8-10.8)
[2024-09-20 11:25] VITALS: BP 162/104
[2024-09-20 11:53] LABS: Glucose - Point of Care 109 mg/dl (70-99)
[2024-09-20] MEDS: NORVASC 2.5 MG PO ×2 (13:32→16:05)
[2024-09-20] MEDS: TORADOL IV (13:34)
--- NOTE | 2024-09-20 13:49 | W.PN.HOSP.TC ---
Today's Communication/Plan
-
Assessment / Plan
Assessment / Plan
Gen-AAOx3, NAD
HEENT-NC, AT, anicteric, NGT removed
Neck-supple
CV-reg, no M, +S1/S2
Lungs-clear B/L
Abd-soft, left-sided ostomy appears healthy with brown stool output
Musculoskeletal-no edema, no deformity
Skin-warm and dry
Neuro-grossly non-focal
Psych-calm, cooperative
Patient is a 74-year-old male with a medical history of longstanding achalasia who presented with abdominal distention with pain and nausea with vomiting. 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
Sigmoid volvulus:
-Underwent sigmoidoscopy with decompression early in the morning on 09/16, tolerated procedure well
-Status post OR with colorectal surgery for Saul procedure 09/17, tolerated procedure well, healthy appearing ostomy with soft brown stool output
-NGT removed 09/19
-Currently tolerating clear liquid diet, surgery advancing diet to low residue
-GI and colorectal surgery input appreciated
-PT/OT following, recommend home PT and use of rolling walker at time of discharge
KALPESH:
-Mild, resolved
-continue IV fluids while n.p.o.
-Baseline creatinine appears to be around 0.8
Hypophosphatemia:
-Mild
-Replete and continue to monitor
Severe protein calorie malnutrition:
-Appreciate dietary input
-Start nutritional supplements once tolerating p.o.
CODE STATUS: Full code
Anticipated Discharge: 24 - 48 hours
Subjective/Interval History
-
Date of Service: September 20, 2024
Patient was seen and examined at bedside this morning. NG tube removed. Tolerating clear liquid diet.
Objective Data
-
Labs:
Laboratory Results
09/20/24 09/20/24
07:14 09:47
WBC 6.4
Hgb 12.6 L
Hct 38.3 L
Plt Count 226
Sodium 134 L
Potassium 3.9
Chloride 102
Carbon Dioxide 25
BUN 15
Creatinine 0.7
Glucose 94
Calcium 8.4
Vital Signs:
Vital Signs
Temp Pulse Resp BP Pulse Ox
97.8 F 73 16 162/104 97
09/20/24 11:25 09/20/24 11:25 09/20/24 11:25 09/20/24 11:25 09/20/24 11:25
I&O
09/19/24 09/20/24 09/21/24
06:59 06:59 06:59
Intake Total 2790 / 2790 3390 / 3390
Output Total 1550 / 1550 2950 / 2950
Balance 1240 / 1240 440 / 440
Review of Systems
-
History Source: Patient
All other systems: Reviewed and negative
Physical Exam
-
General: No Apparent Distress
[2024-09-20] MEDS: NEUTRA-PHOS POWDER PACKET 250 MG PO (14:18)
[2024-09-20 15:07] VITALS: BP 166/108
--- NOTE | 2024-09-20 16:08 | W.PN.CRS1 ---
Addendum entered and electronically signed by Uche Carrion MD 09/20/24 19:21:
I saw and examined the patient.
The ENDOSCOPY SUPPORT SPECIALIST's note was reviewed and I agree with the note.
Comment:
No overnight issues. Denies nausea vomiting, pain controlled, having ostomy function.
AFVSS, ABD soft, non-distended, appropriately tender; midline incision well-approximated without erythema or drainage; ostomy pink and productive of stool
WBC 6.4 from 7.3, Hb 12.6 from 12.1, CR 0.7
� Advance to low residue
� Continue pain control Tylenol, Toradol, Dilaudid as needed
� Continue DVT PPx with Lovenox
� Wound ostomy consult for education and supplies
� Appreciate hospitalist
Original Note:
Today's Communication / Plan
-
LRD
Assessment/Plan
-
74 yo male with sigmoid volvulus now POD#3 sigmoidectomy with colostomy (Saul's resection)
AF, stable vitals but with hypertension
Labs stable
Stoma with function, tolerating clears
voiding well
-Advance to LRD
-D/C IVF
-Out of bed as tolerated
-Wound ostomy nurse for teaching
-DVT prophylaxis: Teds and SCDs in place, Lovenox tonight for DVT prophylaxis
-OR pathology pending
-Appreciate hospitalist
Subjective Data
Procedure
09/17/2024- sigmoidectomy with colostomy (Saul's resection)
Subjective Data
Date of Service: September 20, 2024
Patient seen and examined at bedside with Dr. Carrion. Denies n/v. Tolerating diet. Voiding without difficulty. Passing stool/flatus via stoma.
Objective Data
-
Vital Signs
Temp Pulse Resp BP Pulse Ox
97.6 F 73 18 166/108 97
09/20/24 15:07 09/20/24 15:07 09/20/24 15:07 09/20/24 15:07 09/20/24 15:07
Intake & Output
09/19/24 09/20/24 09/21/24
06:59 06:59 06:59
Intake Total 2790 / 2790 3390 / 3390
Output Total 1550 / 1550 2950 / 2950
Balance 1240 / 1240 440 / 440
Intake:
Oral fluids 960 / 960
IV fluids (Total) 2350 / 2350 2400 / 2400
IV piggybacks 200 / 200
Amount instilled into GI Tube ( 240 / 240 30 / 30
Total)
[place] Sump 240 / 240 30 / 30
Output:
Liquid stool amount 175 / 175 500 / 500
Colostomy 175 / 175 500 / 500
Gastrointestinal tube output ( 600 / 600 50 / 50
Total)
[place] Sump 600 / 600 50 / 50
Urine, Gonzales 400 / 400
Urine, Voided 375 / 375 2400 / 2400
Other:
Number of approximated MODERATE 1
amounts of urine
Number of unmeasured liquid
stools
Colostomy 1
Lab Results
09/20/24 09:47
09/20/24 07:14
Physical Exam
-
General: No Acute Distress and AOx3
Abdomen: Soft, Non Distended, Non Tender and Other (Stoma pink viable with flatus/stool in appliance)
Wound: No Signs of Infection
Incision: Clear, Dry, Intact
[2024-09-20 17:27] LABS: Glucose - Point of Care 122 mg/dl (70-99)
[2024-09-20] MEDS: LOVENOX 40 MG SC (18:05)
[2024-09-20 23:10] VITALS: BP 166/102
[2024-09-20 23:39] LABS: Glucose - Point of Care 121 mg/dl (70-99)
[2024-09-21] MEDS: MELATONIN 5 MG PO (00:01)
[2024-09-21] MEDS: TORADOL 10 MG IV (01:03)
[2024-09-21 01:32] VITALS: BP 152/95
[2024-09-21 06:00] VITALS: BMI 19.4
[2024-09-21 06:22] LABS: Glucose - Point of Care 92 mg/dl (70-99)
[2024-09-21 07:30] VITALS: BP 161/112
[2024-09-21] MEDS: NORVASC 5 MG PO (09:13)
[2024-09-21] MEDS: PROTONIX IV 40 MG IV (09:13)
[2024-09-21] MEDS: NSS (PRESERVATIVE FREE) 10 ML IV (09:13)
[2024-09-21] MEDS: TORADOL IV (09:15)
--- NOTE | 2024-09-21 10:16 | W.PN.CRS1 ---
Addendum entered and electronically signed by Uche Carrion MD 09/21/24 15:07:
I saw and examined the patient.
The EXERCISE INSTRUCT's note was reviewed and I agree with the note.
Comment:
Tolerating diet with ostomy function. Okay for DC, follow-up with Dr. Parikh in 2 to 4 weeks
Original Note:
Today's Communication / Plan
-
dispo planning
Assessment/Plan
-
74 yo male with sigmoid volvulus now POD#4 sigmoidectomy with colostomy (Saul's resection)
AF, stable vitals but with hypertension
Stoma with function, tolerating clears
voiding well
-Continue LRD
-Out of bed as tolerated
-Wound ostomy nurse for teaching
-DVT prophylaxis: Teds and SCDs in place, Lovenox tonight for DVT prophylaxis
-OR pathology pending
-Appreciate hospitalist
Ok for discharge from surgical standpoint when medically ready
Subjective Data
Procedure
09/17/2024- sigmoidectomy with colostomy (Saul's resection)
Subjective Data
Date of Service: September 21, 2024
Patient seen and examined at bedside with Dr. Carrion. Denies n/v. Tolerating diet. Voiding well. Pain minimal and well managed.
Objective Data
-
Vital Signs
Temp Pulse Resp BP Pulse Ox
97.9 F 78 18 161/112 97
09/21/24 07:30 09/21/24 07:30 09/21/24 07:30 09/21/24 07:30 09/21/24 07:30
Intake & Output
09/20/24 09/21/24 09/22/24
06:59 06:59 06:59
Intake Total 3390 / 3390 1260 / 1260
Output Total 2950 / 2950 365 / 365
Balance 440 / 440 895 / 895
Intake:
Oral fluids 960 / 960 960 / 960
IV fluids (Total) 2400 / 2400 300 / 300
Amount instilled into GI Tube ( 30 / 30
Total)
[place] Sump 30 / 30
Output:
Liquid stool amount 500 / 500 40 / 40
Colostomy 500 / 500 40 / 40
Gastrointestinal tube output ( 50 / 50
Total)
[place] Sump 50 / 50
Urine, Voided 2400 / 2400 325 / 325
Other:
Number of approximated MODERATE 1 1
amounts of urine
Number of unmeasured liquid
stools
Colostomy 1
Lab Results
09/20/24 09:47
09/20/24 07:14
Physical Exam
-
General: No Acute Distress and AOx3
Abdomen: Soft, Non Distended, Non Tender and Other (Stoma pink viable with flatus/stool in appliance)
Wound: No Signs of Infection
Incision: Clear, Dry, Intact
--- NOTE | 2024-09-21 11:13 | W.DCSUMMARY ---
Discharge Summary
Discharge Data
Date of Admission: 09/16/24
Date of Discharge: 09/21/24
-
Pending Results: No
Hospital Course
Mr. Singh is a 74-year-old male with a medical history of longstanding achalasia who presented with abdominal distention associated with pain, nausea, and vomiting. 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
and management. He underwent sigmoidoscopy with decompression on 09/16 which he tolerated well. Subsequently, he was brought to the OR with colorectal surgery for Jamison's resection on 09/17 which includes ostomy formation. Nasogastric tube was
kept in place postoperatively until 09/19 at which time it was removed and he was able to tolerate clear liquid diet. He had good ostomy output and diet was able to be advanced to low residue. He recovered well from his surgical procedure. He was
evaluated by PT/OT who recommended home with rolling walker once medically stable. He was noted to be moderately hypertensive during his hospitalization even with adequate pain control, and so was started on an antihypertensive regimen with
amlodipine. Otherwise he remained hemodynamically stable throughout his hospitalization. He will need to follow-up with his primary care physician for ongoing blood pressure monitoring and medication adjustments as needed. He was able to be
discharged to home with home health for ostomy care. He will need close outpatient follow-up with colorectal surgery.
Gen-AAOx3, NAD
HEENT-NC, AT, anicteric
Neck-supple
CV-reg, no M, +S1/S2
Lungs-clear B/L
Abd-soft, left-sided ostomy appears healthy with brown stool output
Musculoskeletal-no edema, no deformity
Skin-warm and dry
Neuro-grossly non-focal
Psych-calm, cooperative
Discharge Plan
-
Patient Disposition: Home (Routine Discharge)
Discharge Diagnosis/Procedures: sigmoidectomy with colostomy (Saul's resection)
Diet: Low Residue
Activity: No strenuous activity
Additional Activity: No lifting over 10 pounds (gallon of milk)
Driving Restrictions: Not until seen by your Dr
Bathing Restrictions: OK to Shower
Activity Restrictions/Additional Instructions:
Change pouch with [place] [employer] # [id number] and pouch #[id number] and [place] seal
Call supply company (list in folder provided) for monthly Ostomy supplies after discharge (ask VN to order supplies while on service).
Follow up with surgeon.
Call [facility] RN nurse for ostomy pouching concerns or leakage problems [phone] or [phone] or [phone].
Mr. Singh is a 74-year-old male with a medical history of longstanding achalasia who presented with abdominal distention associated with pain, nausea, and vomiting. 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
and management. He underwent sigmoidoscopy with decompression on 09/16 which he tolerated well. Subsequently, he was brought to the OR with colorectal surgery for Jamison's resection on 09/17 which includes ostomy formation. Nasogastric tube was
kept in place postoperatively until 09/19 at which time it was removed and he was able to tolerate clear liquid diet. He had good ostomy output and diet was able to be advanced to low residue. He recovered well from his surgical procedure. He was
evaluated by PT/OT who recommended home with rolling walker once medically stable. He was noted to be moderately hypertensive during his hospitalization even with adequate pain control, and so was started on an antihypertensive regimen with
amlodipine. Otherwise he remained hemodynamically stable throughout his hospitalization. He will need to follow-up with his primary care physician for ongoing blood pressure monitoring and medication adjustments as needed. He was able to be
discharged to home with home health for ostomy care. He will need close outpatient follow-up with colorectal surgery.
Instructions: Low-fiber diet
Referrals:
Rigoberto Parikh MD [Active] - in two weeks
Love Davila MD [Family Provider] -
Prescriptions:
New
amlodipine 5 mg Tablet
5 mg PO DAILY 30 Days Qty: 30 0RF
pantoprazole 40 mg tablet,delayed release (DR/EC)
40 mg PO DAILY 30 Days Qty: 30 0RF
Continued
quetiapine 400 mg Tablet
400 mg PO HS
sertraline [Zoloft] 100 mg Tablet
200 mg PO DAILY
mirtazapine [Remeron] 30 mg Tablet
30 mg PO HS
dextroamphetamine-amphetamine [Adderall XR] 25 mg Capsule,Extended Release 24hr
25 mg PO DAILY
Discharge Orders:
Discharge Patient (As Directed); Ordered 09/21/24
Ordered By: Chapin Antonio
Discharge Date and Time
Print Language: GEORGIAN
[2024-09-21 11:43] VITALS: BP 156/94
--- NOTE | 2024-09-21 12:30 | CM ---
Met with pt at bedside
Discussed HH needs - agreeable to HH - has had [facility] in past
Referral sent in [facility] to [facility] - awaiting acceptance
Given IMM
Plan - anticipate home with [facility]
--- NOTE | 2024-09-21 14:32 | PTCARENOTE ---
Pt aware VN is not finalized at this time and aware earliest visit could not be until /sun. Pt wants to proceed with dc.
== END 2024-09-21 15:00 | disposition home health service (06) | DRG 329 ==
LOC: 2 SOUTH 01:18
PROVIDERS: Physician Assistant; Physician Assistant Medical; ADMITTING PHYSICIAN Hospitalist; ATTENDING PHYSICIAN Internal Medicine; CONSULT PHYSICIAN Student in an Organized Health Care Education/Training Program; CONSULT PHYSICIAN Surgery; EMERGENCY PHYSICIAN Student in an Organized Health Care Education/Training Program; FAMILY PHYSICIAN Student in an Organized Health Care Education/Training Program
PROC: 0D9N8ZZ Drainage of Sigmoid Colon, Via Natural or Artificial Opening Endoscopic (ICD-10-PCS; 2024-09-16)
PROC: 0D1N0Z4 Bypass Sigmoid Colon to Cutaneous, Open Approach (ICD-10-PCS; 2024-09-19)
PROC: 0DBN0ZZ Excision of Sigmoid Colon, Open Approach (ICD-10-PCS; 2024-09-19)
DX: K56.2 Volvulus (principal); E43 Unspecified severe protein-calorie malnutrition; N17.9 Acute kidney failure, unspecified; K59.39 Other megacolon; Z68.1 Body mass index [BMI] 19.9 or less, adult; K22.0 Achalasia of cardia; I10 Essential (primary) hypertension; K21.9 Gastro-esophageal reflux disease without esophagitis; F32.A Depression, unspecified; F90.9 Attention-deficit hyperactivity disorder, unspecified type; E86.0 Dehydration; Z79.899 Other long term (current) drug therapy
CPT/HCPCS: 88307; 74018; 74177; 80048; 80053; 82962; 83605; 83735; 84100; 84443; 85025; 85027; 85610; 85730; 86850; 86900; 86901; 93005; 97162; 97166; 99285; C1776; J1335; Q9967

== ENCOUNTER 2024-12-04 08:00 | Inpatient (IN) | payer MEDICARE, SELFPAY ==
[2024-11-27 11:24] LABS: Hematocrit 30.6 % (39.0-52.0); Hemoglobin 9.8 g/dL (13.0-18.0); Mean Corpuscular Hgb 28.2 pg (27.0-31.0); Mean Corpuscular Volume 88.2 fL (80.0-94.0); Mean Platelet Volume 9.3 fL (7.4-10.4); Platelet Count 285 10^3/uL (130-400); Red Blood Cell Count 3.47 10^6/uL (4.70-6.10); Red Cell Dist. Width 16.4 % (11.5-14.5); White Blood Cell Count 6.5 10^3/uL (4.8-10.8)
[2024-11-27 12:00] LABS: INR 1.04; PT 14.1 Sec (11.4-14.6)
[2024-11-27 12:01] LABS: APTT 29.1 Sec (23.4-35.0); Glycohemoglobin (HgbA1c) 5.4 % (4.0-5.6)
[2024-11-27 12:05] LABS: ALT (SGPT) 10 U/L (0-50); AST (SGOT) 20 U/L (17-59); Albumin 4.4 g/dl (3.5-5.0); Alkaline Phosphatase 69 U/L (38-126); Blood Urea Nitrogen 21 mg/dl (9-20); Calcium 9.4 mg/dl (8.4-10.2); Carbon Dioxide 28 mmol/L (22-30); Chloride 105 mmol/L (98-107); Glucose 110 mg/dl (70-99); Potassium 4.5 mmol/L (3.5-5.1); Sodium 142 mmol/L (135-145); Total Bilirubin 0.6 mg/dl (0.2-1.3); Total Protein 7.3 g/dl (6.3-8.2); eGFR > 60.00
[2024-11-27 14:21] VITALS: BMI 22.0
[2024-12-04] VITALS (16 sets, daily range): BP systolic 96–151; BP diastolic 60–98; BMI 22.0
[2024-12-04] MEDS: ENTEREG 12 MG PO (07:50)
[2024-12-04] MEDS: TYLENOL 1000 MG PO (07:51)
[2024-12-04] MEDS: NEURONTIN 600 MG PO (07:51)
[2024-12-04] MEDS: HEPARIN 5000 UNITS SC (07:51)
[2024-12-04] MEDS: NORMOSOL-R/PLASMALYTE-A 1000 IV ×2 (08:01→13:40)
--- NOTE | 2024-12-04 11:06 | W.IMMPOSTOP ---
Addendum entered and electronically signed by Rigoberto Parikh MD 12/04/24 11:18:
Left VMs on phones os Vania Galeas and Josh with updates.
Original Note:
Surgical Immed Post Op Note
-
Primary Surgeon: Joaquin Parikh MD
Assisting Surgeon: SANJEEV Cee
Pre-op Diagnosis: 1) prolapsing colostomy 2) history sigmoid volvulus
Post-op Diagnosis: same
Procedure Performed: 1) colostomy takedown 2) flexible sigmoidoscopy
Anesthesia Type: general plus local
Specimen / Cultures: colostomy
Estimated Blood Loss: 20 cc
Complications: no immediate
Operative Findings: 1) clean healthy rectosigmoid 2) upstream colon with soft stool (poor prep)
Will send to med surg.
NPO except sips and chips and meds for now.
[2024-12-04 11:52] LABS: % Basophils 0.7 % (0-2); % Eosinophils 0.7 % (0-6); % Immature Granulocytes 0.2 % (0-0.5); % Lymphocytes 27.7 % (20.5-51.1); % Monocytes 3.5 % (1.7-9.3); % Neutrophils 67.2 % (42.2-75.2); Absolute Lymphocytes 1.1 10^3/uL (1.2-3.4); Absolute Monocytes 0.1 10^3/uL (0.1-0.6); Absolute Neutrophils 2.7 10^3/uL (1.4-6.5); Hematocrit 31.5 % (39.0-52.0); Mean Corp Hgb Conc. 31.7 g/dL (33.0-37.0); Mean Corpuscular Hgb 27.5 pg (27.0-31.0); Mean Corpuscular Volume 86.5 fL (80.0-94.0); Mean Platelet Volume 9.2 fL (7.4-10.4); Nucleated Red Blood Cells % 0 % (-); Platelet Count 255 10^3/uL (130-400); Red Blood Cell Count 3.64 10^6/uL (4.70-6.10); Red Cell Dist. Width 15.8 % (11.5-14.5)
[2024-12-04 12:14] LABS: Blood Urea Nitrogen 23 mg/dl (9-20); Calcium 9.1 mg/dl (8.4-10.2); Carbon Dioxide 24 mmol/L (22-30); Chloride 106 mmol/L (98-107); Estimated Creatinine Clearance 77 ml/min; Glucose 110 mg/dl (70-99); Sodium 140 mmol/L (135-145); eGFR > 60.00
[2024-12-04] MEDS: TYLENOL 650 MG PO ×4 (13:40→23:01)
[2024-12-04] MEDS: TORADOL 10 MG IV ×2 (17:13→23:00)
[2024-12-04 19:26] LABS: Hepatitis C Antibody Negative (Negative)
[2024-12-04] MEDS: SEROQUEL 400 MG PO (22:30)
[2024-12-04] MEDS: REMERON 30 MG PO (22:30)
[2024-12-05] VITALS (7 sets, daily range): BP systolic 98–147; BP diastolic 52–90; PULSE 76–79; O2SAT 96; BMI 21.4
[2024-12-05] MEDS: NORMOSOL-R/PLASMALYTE-A 1000 IV ×2 (01:00→13:05)
[2024-12-05] MEDS: TYLENOL PO (04:22)
[2024-12-05] MEDS: TORADOL 10 MG IV ×4 (04:30→22:10)
[2024-12-05 07:51] LABS: % Basophils 0.5 % (0-2); % Eosinophils 1.7 % (0-6); % Immature Granulocytes 0.2 % (0-0.5); % Lymphocytes 22.3 % (20.5-51.1); % Monocytes 7.2 % (1.7-9.3); % Neutrophils 68.1 % (42.2-75.2); Absolute Basophils 0.1 10^3/uL (0-0.2); Absolute Eosinophils 0.2 10^3/uL (0-0.7); Absolute Lymphocytes 2.1 10^3/uL (1.2-3.4); Absolute Monocytes 0.7 10^3/uL (0.1-0.6); Absolute Neutrophils 6.5 10^3/uL (1.4-6.5); Hematocrit 25.1 % (39.0-52.0); Mean Corp Hgb Conc. 31.9 g/dL (33.0-37.0); Mean Corpuscular Hgb 27.4 pg (27.0-31.0); Mean Platelet Volume 9.8 fL (7.4-10.4); Nucleated Red Blood Cells % 0 % (-); Platelet Count 223 10^3/uL (130-400); Red Blood Cell Count 2.92 10^6/uL (4.70-6.10); Red Cell Dist. Width 15.8 % (11.5-14.5); White Blood Cell Count 9.5 10^3/uL (4.8-10.8)
[2024-12-05] MEDS: ENTEREG 12 MG PO ×2 (08:00→20:23)
[2024-12-05] MEDS: ZOLOFT 200 MG PO (08:00)
[2024-12-05] MEDS: PROTONIX 40 MG PO (08:01)
[2024-12-05] MEDS: TYLENOL 650 MG PO ×4 (08:01→20:23)
[2024-12-05] MEDS: VITAMIN B-6 50 MG PO (08:01)
[2024-12-05] MEDS: THERAGRAN 1 TABLET PO (08:02)
[2024-12-05] MEDS: DILAUDID 0.25 MG IV (08:04)
[2024-12-05 08:23] LABS: Blood Urea Nitrogen 27 mg/dl (9-20); Calcium 8.5 mg/dl (8.4-10.2); Carbon Dioxide 25 mmol/L (22-30); Chloride 104 mmol/L (98-107); Estimated Creatinine Clearance 67 ml/min; Glucose 87 mg/dl (70-99); Magnesium 2.1 mg/dl (1.6-2.3); Potassium 3.9 mmol/L (3.5-5.1); Sodium 137 mmol/L (135-145); eGFR > 60.00
--- NOTE | 2024-12-05 08:57 | W.PN.CRS1 ---
Today's Communication / Plan
-
As below
Assessment/Plan
-
74-year-old male with PMH of achalasia s/p repair, depression, GERD, sigmoid volvulus s/p Jamison's procedure 09/17/[address] Parikh, presents for elective reversal
POD 1 colostomy reversal
AFVSS, UOP 500 mL / 12 hours
WBC 9.5, Hb 8.0 from 10.0, CR 0.9
� Advance to clears
� Continue pain control with Tylenol, Toradol, Dilaudid as needed; continue Entereg until bowel function
� Hold DVT PPx; repeat CBC at noon to ensure no additional drop; drop in Hb likely hemodilutional and less likely acute blood loss anemia
� DC Gonzales, monitor for void
� OOB/IS
Subjective Data
Subjective Data
Date of Service: December 05, 2024
No overnight events.
Pain controlled.
Denies nausea/vomiting
-flatus -BMs + Gonzales
Objective Data
-
Vital Signs
Temp Pulse Resp BP Pulse Ox
98.2 F 71 16 109/64 97
12/05/24 07:15 12/05/24 07:15 12/05/24 07:15 12/05/24 07:15 12/05/24 07:15
Intake & Output
12/04/24 12/05/24 12/06/24
06:59 06:59 06:59
Intake Total 960 / 960
Output Total 600 / 600
Balance 360 / 360
Intake:
Oral fluids 0 / 0
IV fluids (Total) 960 / 960
Output:
Urine, Gonzales 600 / 600
Lab Results
12/05/24 06:43
12/05/24 06:43
Physical Exam
-
General: No Acute Distress and AOx3
HEENT: Grossly Normal
Abdomen: Soft, Non Distended, Tender (Appropriately tender near ostomy wound) and Other (Ostomy wound with dressing in place, mild stable strikethrough)
Skin: Warm and Dry
Wound: No Signs of Infection and No Skin Erythema
--- NOTE | 2024-12-05 10:09 | CM ---
Cm reviewed medical records. Patient lives alone, but will have sister available for support. Patient had a history of VN with [facility] but is currently not on service. Patient does not have a history of DME except ostomy supplies. Patient is active
with his PCP. Patient uses [facility] for medication services.
PLAN: home no needs.
[2024-12-05 12:57] LABS: % Basophils 0.5 % (0-2); % Eosinophils 2.6 % (0-6); % Immature Granulocytes 0.4 % (0-0.5); % Lymphocytes 15.7 % (20.5-51.1); % Monocytes 7.2 % (1.7-9.3); % Neutrophils 73.6 % (42.2-75.2); Absolute Basophils 0.1 10^3/uL (0-0.2); Absolute Eosinophils 0.2 10^3/uL (0-0.7); Absolute Lymphocytes 1.4 10^3/uL (1.2-3.4); Absolute Monocytes 0.7 10^3/uL (0.1-0.6); Absolute Neutrophils 6.8 10^3/uL (1.4-6.5); Hematocrit 28.3 % (39.0-52.0); Hemoglobin 9.1 g/dL (13.0-18.0); Mean Corp Hgb Conc. 32.2 g/dL (33.0-37.0); Mean Corpuscular Hgb 27.6 pg (27.0-31.0); Mean Corpuscular Volume 85.8 fL (80.0-94.0); Mean Platelet Volume 9.8 fL (7.4-10.4); Nucleated Red Blood Cells % 0 % (-); Platelet Count 255 10^3/uL (130-400); Red Cell Dist. Width 15.9 % (11.5-14.5); White Blood Cell Count 9.2 10^3/uL (4.8-10.8)
[2024-12-05] MEDS: LOVENOX 40 MG SC (17:01)
[2024-12-05] MEDS: TUMS CHEWABLE TABLET 200 MG PO (19:33)
[2024-12-05] MEDS: REMERON 30 MG PO (22:10)
[2024-12-05] MEDS: SEROQUEL 400 MG PO (22:10)
[2024-12-06] MEDS: TYLENOL PO ×4 (00:12→23:31)
[2024-12-06] MEDS: TORADOL 10 MG IV ×4 (04:57→22:25)
[2024-12-06 05:57] VITALS: BMI 21.2
[2024-12-06 07:10] VITALS: BP 148/99
[2024-12-06] MEDS: ZOLOFT 200 MG PO (08:32)
[2024-12-06] MEDS: VITAMIN B-6 50 MG PO (08:32)
[2024-12-06] MEDS: TYLENOL 650 MG PO ×3 (08:32→17:56)
[2024-12-06] MEDS: PROTONIX 40 MG PO (08:35)
[2024-12-06] MEDS: THERAGRAN 1 TABLET PO (08:35)
[2024-12-06] MEDS: ENTEREG 12 MG PO (08:35)
--- NOTE | 2024-12-06 11:21 | W.PN.CRS1 ---
Today's Communication / Plan
-
Advance to FLD
Assessment/Plan
-
74-year-old male with PMH of achalasia s/p repair, depression, GERD, sigmoid volvulus s/p Jamison's procedure 09/17/[address] Parikh, presents for elective reversal
POD 2 colostomy reversal
AFVSS
H/H stable
� Advance to full liquids
- Ok to shower, daily dressing changes
� Continue pain control with Tylenol, Toradol, oxycodone, Dilaudid as needed
� Continue VTE ppx with lovenox sq
� OOB/IS
Subjective Data
Procedure
12/04/24 1) colostomy takedown 2) flexible sigmoidoscopy
Subjective Data
Date of Service: December 06, 2024
Patient seen and examined at bedside with Dr. Garay. Denies n/v. Passing stools/flatus. Tolerating liquids. Minimal discomfort.
Objective Data
-
Vital Signs
Temp Pulse Resp BP Pulse Ox
98.4 F 79 16 148/99 94
12/06/24 07:10 12/06/24 07:10 12/06/24 07:10 12/06/24 07:10 12/06/24 07:10
Intake & Output
12/05/24 12/06/24 12/07/24
06:59 06:59 06:59
Intake Total 960 / 960 1180 / 1180
Output Total 600 / 600 1375 / 1375
Balance 360 / 360 -195 / -195
Intake:
Oral fluids 0 / 0 780 / 780
IV fluids (Total) 960 / 960 400 / 400
Output:
Urine, Gonzales 600 / 600 375 / 375
Urine, Voided 1000 / 1000
Other:
Number of approximated MODERATE 2
amounts of urine
Lab Results
12/05/24 12:08
12/05/24 06:43
Physical Exam
-
General: No Acute Distress and AOx3
HEENT: Grossly Normal
Abdomen: Soft, Non Distended, Tender (Appropriately tender near ostomy wound) and Other (Ostomy wound with intact gus, SSF on dressing; changed, wick removed)
Skin: Warm and Dry
Wound: No Signs of Infection and No Skin Erythema
[2024-12-06 12:11] LABS: Hematocrit 28.6 % (39.0-52.0); Hemoglobin 9.2 g/dL (13.0-18.0); Mean Corp Hgb Conc. 32.2 g/dL (33.0-37.0); Mean Corpuscular Hgb 27.9 pg (27.0-31.0); Mean Corpuscular Volume 86.7 fL (80.0-94.0); Mean Platelet Volume 9.8 fL (7.4-10.4); Platelet Count 248 10^3/uL (130-400); Red Cell Dist. Width 15.9 % (11.5-14.5); White Blood Cell Count 8.1 10^3/uL (4.8-10.8)
[2024-12-06 12:26] LABS: Blood Urea Nitrogen 20 mg/dl (9-20); Calcium 8.8 mg/dl (8.4-10.2); Carbon Dioxide 28 mmol/L (22-30); Chloride 108 mmol/L (98-107); Estimated Creatinine Clearance 74 ml/min; Glucose 118 mg/dl (70-99); Potassium 3.8 mmol/L (3.5-5.1); Sodium 140 mmol/L (135-145); eGFR > 60.00
[2024-12-06] MEDS: ROBITUSSIN DM 10 ML PO (13:12)
[2024-12-06 15:15] VITALS: BP 128/79
[2024-12-06] MEDS: LOVENOX 40 MG SC (18:00)
[2024-12-06] MEDS: ENTEREG PO (20:00)
[2024-12-06] MEDS: SEROQUEL 400 MG PO (22:22)
[2024-12-06] MEDS: REMERON 30 MG PO (22:22)
[2024-12-06 23:00] VITALS: BP 141/84
[2024-12-07] MEDS: TORADOL 10 MG IV ×2 (04:39→12:34)
[2024-12-07] MEDS: TYLENOL 650 MG PO ×3 (04:39→12:34)
[2024-12-07 06:00] VITALS: BMI 21.0
[2024-12-07 07:07] VITALS: BP 146/87
[2024-12-07] MEDS: VITAMIN B-6 50 MG PO (08:20)
[2024-12-07] MEDS: THERAGRAN 1 TABLET PO (08:20)
[2024-12-07] MEDS: PROTONIX 40 MG PO (08:20)
[2024-12-07] MEDS: ZOLOFT 200 MG PO (08:20)
[2024-12-07] MEDS: ENTEREG 12 MG PO (08:20)
--- NOTE | 2024-12-07 09:21 | W.PN.CRS1 ---
Today's Communication / Plan
-
dispo planning
Assessment/Plan
-
74-year-old male with PMH of achalasia s/p repair, depression, GERD, sigmoid volvulus s/p Jamison's procedure 09/17/[address] Parikh, presents for elective reversal
POD #3 colostomy reversal
AFVSS
Labs have been stable
� Advance to low residue diet
- Ok to shower, daily dressing changes
� Continue pain control with Tylenol, Toradol, oxycodone, Dilaudid as needed
� Continue VTE ppx with lovenox sq
� OOB/IS
D/C to home
Subjective Data
Procedure
12/04/24 1) colostomy takedown 2) flexible sigmoidoscopy
Subjective Data
Date of Service: December 07, 2024
Patient seen and examined at bedside with Dr. Garay. Denies n/v. Tolerating diet. Passing flatus and some loose stools. Voiding without difficulty.
Objective Data
-
Vital Signs
Temp Pulse Resp BP Pulse Ox
98.3 F 68 15 146/87 96
12/07/24 07:07 12/07/24 07:07 12/07/24 07:07 12/07/24 07:07 12/07/24 07:07
Intake & Output
12/06/24 12/07/24 12/08/24
06:59 06:59 06:59
Intake Total 1180 / 1180 840 / 840
Output Total 1375 / 1375
Balance -195 / -195 840 / 840
Intake:
Oral fluids 780 / 780 840 / 840
IV fluids (Total) 400 / 400
Output:
Urine, Gonzales 375 / 375
Urine, Voided 1000 / 1000
Other:
Number of approximated MODERATE 2 2
amounts of urine
Number of unmeasured liquid
stools
Colostomy 2
Lab Results
12/06/24 11:48
12/06/24 11:48
Physical Exam
-
General: No Acute Distress and AOx3
HEENT: Grossly Normal
Abdomen: Soft, Non Distended, Tender (Appropriately tender near ostomy wound) and Other (Ostomy wound with intact gus, SSF on dressing; changed, wick removed)
Skin: Warm and Dry
Wound: No Signs of Infection and No Skin Erythema
--- NOTE | 2024-12-07 09:56 | CM ---
Reviewed the chart notes and spoke with the patient at the bedside. IMM reviewed. CM continues to be available to patient/family and is monitoring medical plan for needs at discharge.
Plan: Discharge to home today. No needs anticipated. Patient's sister will provide transportation.
--- NOTE | 2024-12-07 11:01 | W.DS.TRANS ---
Addendum entered and electronically signed by CHUY Mendez 12/07/24 12:02:
dictated #[id number]
Original Note:
DC Summary - Ore [employer]er
-
Discharge Instructions:
Sleep Apnea Risk Intermediate
Discharge Diagnosis/Procedures Colostomy closure
Diet As tolerated,Low Fiber
Activity No strenuous activity
Additional Activity Do not lift over 10lbs (gallon of milk)
Bathing Restrictions OK to Shower
Wound Care Allow the glue to flake off your incisions on
its own over the next 2-3 weeks. Avoid scrubbing
or picking off glue as well as soaking in tubs
and pools during this time.
Cover your prior stoma site with clean gauze
dressing and change daily and as needed for
soiling. [place] will be removed during your
follow up appointment. Ok to remove dressing for
showers and Ok to leave dressing off once
drainage is no longer present.
Instructions: Low-fiber diet
Stand-Alone Forms:
Changes to Home Medications: No
Discharge Medications:
DC Medications w/original date entered in [facility]
quetiapine 400 mg tablet 400 mg PO HS Mental Health/Anxiety 03/19/24
dextroamphetamine-amphetamine ER 25 mg 24hr capsule,extend release (Adderall XR) 20 mg PO DAILY Mental Health/Anxiety 06/12/24
mirtazapine 30 mg tablet (Remeron) 30 mg PO HS Mental Health/Anxiety 06/12/24
sertraline 100 mg tablet (Zoloft) 200 mg PO DAILY Mental Health/Anxiety 06/12/24
Vitamin B-6 1 tab PO DAILY Supplement 11/27/24
multivitamin 1 tab PO DAILY Supplement 11/27/24
acetaminophen 325 mg tablet 650 mg (2 x 325 mg) PO Q4HPRN PRN mild pain #1 tab 12/07/24
ibuprofen 200 mg tablet 400 - 600 mg (2 - 3 x 200 mg) PO Q6HPRN PRN moderate pain #1 tab 12/07/24
oxycodone 5 mg tablet 5 mg PO Q4HPRN PRN breakthrough/severe pain #15 tabs 12/07/24
Home Medication Changes
Pending Results: No
[2024-12-07 13:02] VITALS: BP 129/83
== END 2024-12-07 13:50 | disposition home or self-care (01) | DRG 346 ==
LOC: 2 SOUTH 08:00
PROVIDERS: Registered Nurse; Surgery; ADMITTING PHYSICIAN Surgery; FAMILY PHYSICIAN Family Medicine
PROC: 0DSN0ZZ Reposition Sigmoid Colon, Open Approach (ICD-10-PCS; 2024-12-04)
PROC: 0DJD8ZZ Inspection of Lower Intestinal Tract, Via Natural or Artificial Opening Endoscopic (ICD-10-PCS; 2024-12-04)
DX: K94.09 Other complications of colostomy (principal); K21.9 Gastro-esophageal reflux disease without esophagitis; F32.9 Major depressive disorder, single episode, unspecified; K43.5 Parastomal hernia without obstruction or gangrene; Z87.19 Personal history of other diseases of the digestive system; Z79.899 Other long term (current) drug therapy
CPT/HCPCS: 88304; 36415; 80048; 80053; 83036; 83735; 85025; 85027; 85610; 85730; 86803; 86850; 86900; 86901; 93005; 97116; 97162; 97166; J1335

== ENCOUNTER → 2025-05-26 07:56 | Outpatient (REF) | payer MEDICARE, SELFPAY ==
[2025-05-26 08:59] LABS: Hematocrit 31.4 % (39.0-52.0); Hemoglobin 9.5 g/dL (13.0-18.0); Mean Corp Hgb Conc. 30.3 g/dL (33.0-37.0); Mean Corpuscular Volume 84.6 fL (80.0-94.0); Platelet Count 285 10^3/uL (130-400); Red Cell Dist. Width 17.4 % (11.5-14.5)
[2025-05-26 09:27] LABS: Blood Urea Nitrogen 27 mg/dl (9-20); Calcium 9.5 mg/dl (8.4-10.2); Carbon Dioxide 27 mmol/L (22-30); Chloride 106 mmol/L (98-107); Glucose 85 mg/dl (70-99); Potassium 4.7 mmol/L (3.5-5.1); Sodium 141 mmol/L (135-145); eGFR > 60.00
== END ==
LOC: SDSPAT 07:56
PROVIDERS: ATTENDING PHYSICIAN Surgery; FAMILY PHYSICIAN Family Medicine
DX: Z01.818 Encounter for other preprocedural examination (principal)
CPT/HCPCS: 36415; 80048; 85027; 93005

== ENCOUNTER 2025-06-05 06:11 | Day surgery (SDC) | payer MEDICARE, SELFPAY ==
[2025-05-26 13:58] VITALS: BMI 23.4
[2025-06-05] VITALS (11 sets, daily range): BP systolic 120–145; BP diastolic 75–93; BMI 23.4
[2025-06-05] MEDS: NORMOSOL-R/PLASMALYTE-A 1000 IV (07:51)
[2025-06-05] MEDS: TYLENOL 1000 MG PO (07:51)
--- NOTE | 2025-06-05 08:17 | HP.FOC2 ---
Focused History & Physical
Chief Complaint
HPI:
Chief Complaint: Incisional hernia
HPI / Indication for Planned Procedure: Mr. Singh is a 74-year-old male previously known to our surgical service from having undergone repair of an acutely incarcerated umbilical hernia, subsequent robotic inguinal herniorrhaphy. He then
developed a sigmoid volvulus requiring urgent sigmoid resection with diverting colostomy which was reversed in November 2024. He has since taken note of a gradual enlarging swelling along the lower abdominal wall and his incisional area consistent
with a large incisional hernia for which he presents today for operative correction.
Relevant Past Medical History: Other (Chronic anemia, history of achalasia, depression, GERD)
Relevant Social History: Negative
Relevant Family History: Negative
Relevant Past Surgical History: Positive for (Umbilical hernia repair laparoscopic left inguinal hernia pair, Saul procedure, reversal of colostomy)
Review of Systems
Review of Pertinent Systems: All Systems Negative
Medication
See Medication form for detailed medications: Yes
Medication List (including Herbals & OTC):
quetiapine 400 mg tablet 400 mg PO HS Mental Health/Anxiety 03/19/24
mirtazapine 30 mg tablet (Remeron) 30 mg PO HS Mental Health/Anxiety 06/12/24
sertraline 100 mg tablet (Zoloft) 200 mg PO DAILY Mental Health/Anxiety 06/12/24
Vitamin B-6 1 tab PO DAILY Supplement 11/27/24
multivitamin 1 tab PO DAILY Supplement 11/27/24
dextroamphetamine-amphetamine ER 25 mg 24hr capsule,extend release 25 mg PO DAILY 05/29/25
Medications Reviewed: Yes
Allergies and Reactions
Patient has Allergies: Yes
Noted Allergies and Reactions:
Allergy/AdvReac Type Severity Reaction Status Date / Time
No Known Allergies Allergy Verified 06/05/25 07:30
Pertinent Physical Exam
All Other Systems: Negative
Head/Neck: Normal
Lungs: Normal
Heart: Normal
Abdomen: Other (Large lower midline incisional hernia up to 10 cm in length)
Extremities: Normal
Neurological: Normal
Diagnosis / Assessment
74-year-old male presenting for scheduled operative correction symptomatic incisional hernia
Plan / Procedure
Open incisional hernia pair with mesh
Anesthesia/Sedation to be done by Anesthesia Provider: Yes
--- NOTE | 2025-06-05 11:59 | W.IMMPOSTOP ---
Addendum entered and electronically signed by Jose Charles MD 06/05/25 12:24:
#[id number]
Original Note:
Surgical Immed Post Op Note
-
Primary Surgeon: Jose Charles MD
Assisting Surgeon: Cristopher Garibay
Pre-op Diagnosis: Incisional hernia
Post-op Diagnosis: Incisional hernia; 10 cm maximal length
Procedure Performed: Open retrorectus mesh incisional hernia repair
Anesthesia Type: GETA +0.25% Marcaine with epi
Specimen / Cultures: None
Estimated Blood Loss: 20 mL
Complications: None immediate
Operative Findings: Midline incisional hernia spanning length of previous laparotomy scar. 10 cm vertical length approaching 5 cm in width. No adhesions. Retrorectus mesh repair. Posterior sheath/peritoneum closed with 2-0 PDS STRATAFIX spiral.
20 cm x 15 cm Bard soft mesh. Closure of hernia defect/linea alba #1 PDS STRATAFIX symmetric. Subcutaneous closure 3-0 Vicryl. Skin closure 4-0 Monocryl.
Drains: None
Patient's sister updated postoperatively via phone call
[2025-06-05] MEDS: NSS 1000 IV ×2 (14:09→22:09)
[2025-06-05] MEDS: HEPARIN 5000 UNITS SC (21:03)
[2025-06-05] MEDS: TUMS CHEWABLE TABLET 200 MG PO (21:04)
[2025-06-05] MEDS: SEROQUEL 400 MG PO (22:02)
[2025-06-05] MEDS: REMERON 30 MG PO (22:02)
[2025-06-05] MEDS: TYLENOL 650 MG PO (22:21)
[2025-06-06 03:05] VITALS: BP 132/79
--- NOTE | 2025-06-06 05:47 | PTCARENOTE ---
Gonzales catheter removed at 05:45 without incident. Pt. given time and amount. Urinal at bedside. Care ongoing and call [facility] within reach.
[2025-06-06 06:15] LABS: Hematocrit 28.0 % (39.0-52.0); Hemoglobin 8.9 g/dL (13.0-18.0); Mean Corp Hgb Conc. 31.8 g/dL (33.0-37.0); Mean Corpuscular Volume 83.6 fL (80.0-94.0); Platelet Count 241 10^3/uL (130-400); Red Cell Dist. Width 17.1 % (11.5-14.5)
[2025-06-06] MEDS: NSS 1000 IV ×2 (06:22→15:35)
[2025-06-06 06:45] LABS: Blood Urea Nitrogen 17 mg/dl (9-20); Calcium 8.2 mg/dl (8.4-10.2); Carbon Dioxide 27 mmol/L (22-30); Chloride 108 mmol/L (98-107); Estimated Creatinine Clearance 79 ml/min; Glucose 94 mg/dl (70-99); Potassium 4.3 mmol/L (3.5-5.1); Sodium 138 mmol/L (135-145); eGFR > 60.00
[2025-06-06 07:20] VITALS: BP 159/92
[2025-06-06] MEDS: MIRALAX 17 GRAMS PO (09:09)
[2025-06-06] MEDS: NON-FORMULARY ITEM 25 MG PO (09:09)
[2025-06-06] MEDS: ZOLOFT 200 MG PO (09:10)
[2025-06-06] MEDS: HEPARIN 5000 UNITS SC ×2 (09:10→21:05)
[2025-06-06] MEDS: TYLENOL 650 MG PO ×2 (09:12→15:36)
[2025-06-06 11:13] VITALS: BP 151/96
[2025-06-06] MEDS: PEPCID 40 MG PO (11:30)
[2025-06-06] MEDS: TORADOL 10 MG IV (11:31)
--- NOTE | 2025-06-06 14:13 | W.PN.GS2 ---
Today's Communication / Plan
-
OOB/Ambulate
Advance diet as tolerated
Assessment / Plan
-
Mr. Singh is a 5 yo male with a h/o achalasia, sigmoid volvulus with sigmoidectomy and colostomy in August and subsequent reversal in November presenting for management of incisional hernia
POD #1 Open retrorectus mesh incisional hernia repair
AFVSS
Labs stable post op
Tolerating clears, poor appetite
voiding since lindsay removed
Plan:
Advance to regular diet
Continue home meds
Analgesics as needed
Decrease IVF to 80ml/hr, will d/c once good po intake
Heparin sq for vte ppx
Anticipate home tomorrow if tolerating diet and pain well controlled
Subjective Data
-
Date of Service: June 06, 2025
Pt seen and examined at bedside with Dr. Parikh. Denies n/v. Not much appetite. Pain well managed but sore.
Objective Data
-
Intake and Output
06/05/25 06/06/25 06/07/25
06:59 06:59 06:59
Intake Total 2295 / 2295 660 / 660
Output Total 1675 / 1675 275 / 275
Balance 620 / 620 385 / 385
Intake:
Oral fluids 480 / 480 660 / 660
IV fluids (Total) 1815 / 1815
Output:
Urine, Lindsay 1675 / 1675
Urine, Voided 275 / 275
Vital Signs
Temp Pulse Resp BP Pulse Ox
98.4 F 81 16 151/96 94
06/06/25 11:13 06/06/25 11:13 06/06/25 11:13 06/06/25 11:13 06/06/25 11:13
Lab Results
06/06/25 05:38
06/06/25 05:38
Calcium 8.2 mg/dl (8.4-10.2) L 06/06/25 05:38
Physical Exam
-
Gen: No apparant distress
Abd: soft, mild tender overlying incision, no distention
Operative dressing intact
[2025-06-06 15:44] VITALS: BP 144/83
[2025-06-06] MEDS: SEROQUEL 400 MG PO (21:05)
[2025-06-06] MEDS: REMERON 30 MG PO (21:07)
[2025-06-06 23:21] VITALS: BP 159/95
[2025-06-07] MEDS: NSS 1000 IV (04:48)
[2025-06-07 06:47] LABS: Hematocrit 33.0 % (39.0-52.0); Hemoglobin 9.9 g/dL (13.0-18.0); Mean Corp Hgb Conc. 30.0 g/dL (33.0-37.0); Mean Corpuscular Volume 85.7 fL (80.0-94.0); Platelet Count 250 10^3/uL (130-400); Red Cell Dist. Width 17.2 % (11.5-14.5)
[2025-06-07 07:10] VITALS: BP 170/100
[2025-06-07 07:16] LABS: Blood Urea Nitrogen 15 mg/dl (9-20); Calcium 8.5 mg/dl (8.4-10.2); Carbon Dioxide 26 mmol/L (22-30); Chloride 109 mmol/L (98-107); Estimated Creatinine Clearance 79 ml/min; Glucose 93 mg/dl (70-99); Potassium 3.9 mmol/L (3.5-5.1); eGFR > 60.00
[2025-06-07 07:23] LABS: Sodium 141 mmol/L (135-145)
[2025-06-07] MEDS: MIRALAX 17 GRAMS PO (08:10)
[2025-06-07] MEDS: PEPCID 40 MG PO (08:11)
[2025-06-07] MEDS: NON-FORMULARY ITEM 25 MG PO (08:11)
[2025-06-07] MEDS: HEPARIN 5000 UNITS SC (08:11)
[2025-06-07] MEDS: ZOLOFT 200 MG PO (08:11)
[2025-06-07 08:30] VITALS: BP 180/112
[2025-06-07] MEDS: NORVASC 5 MG PO (09:08)
--- NOTE | 2025-06-07 09:19 | W.PN.GS2 ---
Today's Communication / Plan
-
Dispo planning
Assessment / Plan
-
Mr. Singh is a 74 yo male with a h/o achalasia, sigmoid volvulus with sigmoidectomy and colostomy in August and subsequent reversal in November presenting for management of incisional hernia
POD #2 Open retrorectus mesh incisional hernia repair
Afebrile. BP elevated
Labs stable post op
Tolerating diet
Plan:
Advance to regular diet
Continue home meds. Started on Norvasc earlier this year during prior admit, but did not fill script. Will resume. Advised follow up with PCP
Analgesics as needed
D/C IVF
Heparin sq for vte ppx
Dispo home today
Subjective Data
-
Date of Service: June 07, 2025
Pt seen and examined at bedside with Dr. Parikh. Denies n/v. tolerating diet. Passing gas. Sore, but pain well controlled.
Objective Data
-
Intake and Output
06/06/25 06/07/25 06/08/25
06:59 06:59 06:59
Intake Total 2295 / 2295 3160 / 3160 160 / 160
Output Total 1675 / 1675 1680 / 1680 425 / 425
Balance 620 / 620 1480 / 1480 -265 / -265
Intake:
Oral fluids 480 / 480 1000 / 1000
IV fluids (Total) 1815 / 1815 2160 / 2160 160 / 160
Output:
Urine, Gonzales 1675 / 1675
Urine, Voided 1680 / 1680 425 / 425
Other:
How many times incontinent 1
MODERATE amount urine
Number of approximated MODERATE 1
amounts of urine
Vital Signs
Temp Pulse Resp BP Pulse Ox
98.5 F 82 16 180/112 96
06/07/25 07:10 06/07/25 07:10 06/07/25 07:10 06/07/25 08:30 06/07/25 07:10
Lab Results
06/07/25 05:43
06/07/25 05:43
Calcium 8.5 mg/dl (8.4-10.2) 06/07/25 05:43
Physical Exam
-
Gen: No apparant distress
Abd: soft, mild tender overlying incision, no distention
Midline incision with intact steri's, dressing removed
--- NOTE | 2025-06-07 10:31 | CM ---
CM met with pt bedside
Pt resides alone in an apartment with 3STE
He is independent with his ADLs without any ADs
Has a WW and SPC for use as needed
Hx with [facility]
PCP- Gilmar Arredondo
Rx- NATHALIA [facility]ford
Pt is POD#2 hernia repair and dc order noted
No dc needs noted
His brother/sister lives nearby and will assist and support as needed
Discharge Disposition- home no needs, family transport
[2025-06-07 11:07] VITALS: BP 154/89
== END 2025-06-07 12:40 | disposition home or self-care (01) ==
LOC: SDS 06:11
PROVIDERS: Registered Nurse; ATTENDING PHYSICIAN Surgery; FAMILY PHYSICIAN Family Medicine
DX: K43.2 Incisional hernia without obstruction or gangrene (principal)
CPT/HCPCS: 49593; 80048; 85027; 86850; 86900; 86901; C1781

== ENCOUNTER 2025-06-12 09:10 | Emergency (ER) | payer MEDICARE, SELFPAY ==
[2025-06-12 09:11] VITALS: BP 130/82
--- NOTE | 2025-06-12 09:25 | ED.GENMED ---
History of Present Illness
General
Chief Complaint: Bowel Problem
Time Seen by Provider: 06/12/25 09:15
Nursing documentation reviewed up to this point in time: agreed with
History of Present Illness
History of Present Illness:
74-year-old male referred to the ER for further evaluation of inability to have a bowel movement for the last 4 weeks. Patient reports that he has been passing gas and has had some stringy stool, but does not report having any effective bowel
movement recently. He is 2 weeks status post abdominal wall hernia repair by Dr. Charles. He denies any fevers or chills. He reports her appetite but this has been an ongoing issue over the past 2 years and he describes a 50 pound weight loss
over the past 2 years. He denies vomiting. No fevers. No cough or cold symptoms. He has been using dtkx-hke-sntpcty stool softener-he reports 3 tablets taken without any improvement.
Past History
Past History
ED Past Medical History: Psychiatric (Depression)
ED Past Surgical History: Other (surgery for Achalasia, )
Social History
Tobacco: Non-smoker
Alcohol: Occasional
Personal:
Living: with family
Phy Exam
Physical Exam
Physical Exam:
Patient is awake, alert, appears in no acute distress, head is NCAT, wearing glasses, PERRL, EOMI mucous membranes moist, conjunctiva pink, heart regular rate and rhythm without murmurs or ectopy, lungs are clear to auscultation without wheezes
rales or rhonchi, no JVD, abdomen is soft and nontender on palpation, well-healing abdominal incision which is clean dry and intact, healing appearing ecchymosis predominantly in the left lower quadrant, no excessive warmth, no palpable masses,
extremities without edema, GCS is 15, walking easily around the room without any assistance or apparent discomfort
Course
Orders/Labs/Results
Orders:
Orders
06/12/25 09:24
CT Abd/pel W Iv And Oral Contr Urgent
Comment: hernia repair 2 weeks ago
Reason For Exam: bowel obstruction
0.9% Sodium Chloride 1000 ml [Nss] 1,000 ml IV BOLUS
Iohexol [Omnipaque] See Protocol PO NOW STA
06/12/25 09:34
Complete Blood Count/With Diff Urgent
Comprehensive Metabolic Panel Urgent
Prothrombin Time Urgent
06/12/25 11:12
Urinalysis Reflex To Culture Urgent
Date Specimen was Collected: 06/12/25
Time Specimen was Collected: 11:10
06/12/25 12:59
Enema- Treatment ONCE
Type: Milk of Molasses
06/12/25 13:25
Magnesium Hydroxide [Milk of Magnesia] 30 ml PO NOW STA
Abnormal Lab Results
06/12/25
09:34
WBC 4.7 L 10^3/uL
(4.8-10.8)
RBC 3.93 L 10^6/uL
(4.70-6.10)
Hgb 10.3 L g/dL
(13.0-18.0)
Hct 34.0 L %
(39.0-52.0)
MCH 26.2 L pg
(27.0-31.0)
MCHC 30.3 L g/dL
(33.0-37.0)
RDW 17.4 H %
(11.5-14.5)
Absolute Monos (auto) 0.8 H 10^3/uL
(0.1-0.6)
Monocytes % 16.7 H %
(1.7-9.3)
Eosinophils % 8.8 H %
(0-6)
BUN 22 H mg/dl
(9-20)
Glucose 111 H mg/dl
(70-99)
06/12/25 09:34
06/12/25 09:34
Very reassuring CBC, stable anemia compared to prior hemoglobin from 06/07/2025 9.9. Kidney function also preserved
Vital Signs
Initial and Last Documented VS:
Initial Vital Signs
Temp Pulse Resp BP Pulse Ox
98.2 F 80 16 130/82 98
06/12/25 09:11 06/12/25 09:11 06/12/25 09:11 06/12/25 09:11 06/12/25 09:11
Last Documented Vital Signs
Temp Pulse Resp BP Pulse Ox
98.2 F 72 16 135/73 95
06/12/25 09:11 06/12/25 13:31 06/12/25 13:31 06/12/25 13:31 06/12/25 13:31
MDM/Problems Addressed
Differential Diagnosis Includes:
Differential diagnosis to consider but not limited to bowel obstruction, malignancy, electrolyte dyscrasia, constipation, along with other etiologies considered
*Radiology
Radiology exam reviewed: radiology read reviewed (I reviewed CT result)
*Pulse Oximetry
SaO2: 98
Oxygen Mode of Delivery: Room air
Patient hypoxic: no
*Critical Care Note
Total Time (30-74mins, 75-104mins- exclusive of procedures): Not Applicable
Data Reviewed
Review of Other/Old Records Reveals: Records (I reviewed surgical progress note, DAY CARE AIDE Nii with Dr Parikh dated 06/07/2025-patient is status post retrorectus mesh incisional hernia repair. He has a prior history of achalasia, sigmoid volvulus with
sigmoidectomy and colostomy s/p reversal November 2024)
Update Note
Update Note:
Patient declining any need for analgesia at the current time. Will give IV fluids and obtain CT of the abdomen pelvis to rule out more worrisome etiology given recent surgical procedure and reported unexplained weight loss. Patient agrees with
plan at current. Will reassess
1310: I reviewed CT result with on-call surgeon. I discussed with him plan for enema. He would also recommend addition of milk of magnesia. Will provide for patient and once he is able to have a BM we will plan for discharge. I reviewed this
information with the patient who is in agreement.
Pt was able to have multiple BMs, will d/c
ED Attending Note
-
Portions of this chart may have been created with voice recognition software.� Occasional wrong word or��sound alike� substitutions may have occurred due to the inherent limitations of voice recognition software.
Discharge Plan
Departure
Patient Disposition: Home (Routine Discharge)
Date of Disposition: 06/12/25
Time of Disposition: 14:45
Patient with high blood pressure during this ER visit?: No
Discharge Problem:
Constipation
Instructions: Constipation, Adult (DC)
Prescriptions:
No Action
quetiapine 400 mg Tablet
400 mg PO HS
sertraline [Zoloft] 100 mg Tablet
200 mg PO DAILY
mirtazapine [Remeron] 30 mg Tablet
30 mg PO HS
multivitamin Tablet
1 tab PO DAILY
Vitamin B-6
1 tab PO DAILY
dextroamphetamine-amphetamine 25 mg Capsule,Extended Release 24hr
25 mg PO DAILY
acetaminophen [acetaminophen] 325 mg tablet
650 mg PO Q4HPRN PRN (Reason: mild pain) Qty: 1 0RF
oxycodone 5 mg tablet
5 mg PO Q4HPRN PRN (Reason: breakthrough/severe pain) Qty: 15 0RF
amlodipine 5 mg tablet
5 mg PO DAILY Qty: 30 0RF
Referrals:
Jose Charles MD [Active, Surgical] - Call in 1-3 days for appt
Gilmar Arredondo MD [Family Provider, Family Practice]
Activity Restrictions/Additional Instructions:
Please start using MiraLAX as available [id number], daily, until you are having regular daily bowel movements. If you develop diarrhea, please decrease frequency to every other day. Please continue using stool softener, Colace or similar
hvpo-sce-[id number], to help keep stools easy to pass. Please follow-up with Dr. Ellison for reevaluation and further care. Return to the ER for any concerns
Interventions
Interventions:
*Risk Screen - Suicide Last Done: 06/12/25 09:11
*General Assessment Last Done: 06/12/25 09:52
*Neglect/Abuse Screening Last Done: 06/12/25 09:11
*ED- Fall Risk Assessment Last Done: 06/12/25 10:58
*ED COVID-19 Vaccine History Last Done: 06/12/25 09:52
*ED Influenza Vaccine History Last Done: 06/12/25 09:52
WS-Lsazob-Utxkadzcac Assessment Last Done: 06/12/25 11:14
Discharge Date and Time
Print Language: SLOVENIAN
[2025-06-12 09:32] VITALS: BMI 21.7
[2025-06-12 09:46] LABS: Hematocrit 34.0 % (39.0-52.0); Hemoglobin 10.3 g/dL (13.0-18.0); Mean Corp Hgb Conc. 30.3 g/dL (33.0-37.0); Mean Corpuscular Volume 86.5 fL (80.0-94.0); Nucleated Red Blood Cells % 0 % (-); Platelet Count 277 10^3/uL (130-400); Red Cell Dist. Width 17.4 % (11.5-14.5)
[2025-06-12] MEDS: OMNIPAQUE 50 ML PO (09:47)
[2025-06-12] MEDS: NSS 1000 IV (09:48)
[2025-06-12 09:52] LABS: INR 1.02; PT 13.7 Sec (11.4-14.6)
[2025-06-12 09:58] LABS: ALT (SGPT) 16 U/L (0-50); AST (SGOT) 21 U/L (17-59); Albumin 4.0 g/dl (3.5-5.0); Alkaline Phosphatase 64 U/L (38-126); Blood Urea Nitrogen 22 mg/dl (9-20); Calcium 9.0 mg/dl (8.4-10.2); Carbon Dioxide 28 mmol/L (22-30); Chloride 106 mmol/L (98-107); Estimated Creatinine Clearance 68 ml/min; Glucose 111 mg/dl (70-99); Potassium 4.3 mmol/L (3.5-5.1); Sodium 141 mmol/L (135-145); Total Protein 7.0 g/dl (6.3-8.2); eGFR > 60.00
[2025-06-12 10:54] VITALS: BP 150/93
[2025-06-12 11:51] LABS: Urine Character Clear (Clear)
[2025-06-12 13:31] VITALS: BP 135/73
[2025-06-12] MEDS: MILK OF MAGNESIA 30 ML PO (13:51)
== END 2025-06-12 14:58 | disposition home or self-care (01) ==
LOC: EMR 09:10
PROVIDERS: EMERGENCY PHYSICIAN Emergency Medicine; FAMILY PHYSICIAN Family Medicine
DX: K59.00 Constipation, unspecified (principal); F32.A Depression, unspecified; R63.4 Abnormal weight loss; K21.9 Gastro-esophageal reflux disease without esophagitis; Z98.890 Other specified postprocedural states
CPT/HCPCS: 99284; 96360; 74177; 80053; 81003; 85025; 85610; Q9967

== ENCOUNTER 2025-07-08 13:03 | Observation (INO) | payer MEDICARE, SELFPAY ==
[2025-07-08] VITALS (8 sets, daily range): BP systolic 127–167; BP diastolic 85–104; BMI 21.8; BMI 20.4
--- NOTE | 2025-07-08 08:35 | EDRN ---
Dr. Chaney in w/ pt at this time.
--- NOTE | 2025-07-08 08:37 | ED.GENMED ---
History of Present Illness
General
Chief Complaint: Bowel Problem
Source: patient
Exam Limitations: none
Time Seen by Provider: 07/08/25 08:31
Nursing documentation reviewed up to this point in time: agreed with
History of Present Illness
History of Present Illness:
75-year-old male with past medical history as noted significant for multiple abdominal surgeries including history of sigmoid volvulus requiring Jamison's resection, prior colostomy and reversal, most recently had an incisional hernia repair with
Dr. Charles on 06/05/2025 who presents to the emergency department for evaluation of constipation. He has had significant constipation postoperatively since his recent hernia repair was seen in the emergency room 06/12 for constipation and treated
with a milk of molasses enema with good relief. After receiving enema he says he has continued to be constipated passing only small hard stools and liquidy stool with frequent flatulence but no substantial bowel movements. He has not had a bowel
movement at all in the past 4 or 5 days. He was referred to the ER for reassessment. Fortunately he has not had any nausea or vomiting and does not have any abdominal pain. He has not any fever or chills. He denies any other acute complaints.
He has been on bowel regimen including MiraLAX initially, then switched to Dulcolax but still constipated.
Past History
Past History
ED Past Medical History: Psychiatric (Depression)
ED Past Surgical History: Other (surgery for Achalasia, )
Social History
Tobacco: Non-smoker
Alcohol: Occasional
Personal:
Living: with family
Review of Systems
Review of Systems
All Other Systems: ROS reviewed and negative except as documented in HPI and ROS
Constitutional: Denies fever
Respiratory: Denies trouble breathing
Cardiac: Denies chest pain
ABD/GI: Reports constipated; Denies abdominal pain, nausea, vomiting or diarrhea
: Denies flank pain
Musculoskeletal: Denies neck pain or back pain
Neurological: Denies headache
Phy Exam
Physical Exam
Physical Exam:
General: Awake, alert, oriented x3; no acute distress
Head: Normocephalic, atraumatic
Eyes: Conjunctiva normal, pupils equal round and reactive to light bilaterally
Throat: Airway intact, handling secretions
Neck: Trachea midline
Lungs: Breathing comfortably with no evidence of respiratory distress
Heart: Regular rate
Abd: Soft, non distended, nontender, multiple surgical scars noted
Rectal: No stool noted in the rectal vault, no internal masses, normal rectal tone
Neuro: Grossly intact, ambulatory
Skin: Warm and dry
Extremities: Warm and well-perfused
Scores
Heart Failure Risk
Heart Failure Risk Score: Not Applicable
Heart Score for Chest Pain Patients
STEMI patient?: Not applicable
Withdrawal Assessment of Alcohol
Withdrawal Assessment Completed?: Not applicable
Course
Orders/Labs/Results
Orders:
Orders
07/08/25 08:33
CR Obstruct Series W/pa Chest Urgent
Comment:
Reason For Exam: constipation
07/08/25 09:12
Complete Blood Count/With Diff Urgent
07/08/25 09:24
Enema- Treatment ONCE
Type: Milk of Molasses
07/08/25 09:42
Comprehensive Metabolic Panel Urgent
07/08/25 10:02
Colon Barium Enema RF [RF Colon-Single Contrast] Urgent
Comment: c/f sigmoid stricture
Reason For Exam: post op constipation
Abnormal Lab Results
07/08/25 07/08/25
09:12 09:42
WBC 4.3 L 10^3/uL
(4.8-10.8)
RBC 3.88 L 10^6/uL
(4.70-6.10)
Hgb 10.3 L g/dL
(13.0-18.0)
Hct 33.1 L %
(39.0-52.0)
MCH 26.5 L pg
(27.0-31.0)
MCHC 31.1 L g/dL
(33.0-37.0)
RDW 18.2 H %
(11.5-14.5)
MPV 10.7 H fL
(7.4-10.4)
Monocytes % 12.4 H %
(1.7-9.3)
Eosinophils % 9.1 H %
(0-6)
BUN 24 H mg/dl
(9-20)
07/08/25 09:12
07/08/25 09:42
Vital Signs
Initial and Last Documented VS:
Initial Vital Signs
Temp Pulse Resp BP Pulse Ox
36.7 C 72 18 154/100 96
07/08/25 08:25 07/08/25 08:25 07/08/25 08:25 07/08/25 08:25 07/08/25 08:25
Last Documented Vital Signs
Temp Pulse Resp BP Pulse Ox
36.7 C 73 16 167/103 99
07/08/25 08:25 07/08/25 12:04 07/08/25 12:04 07/08/25 12:04 07/08/25 12:04
MDM/Problems Addressed
Differential Diagnosis Includes:
Constipation, small bowel obstruction, volvulus
MDM/Problems Addressed:
75-year-old male presents for evaluation of constipation�had incisional hernia repair last month and has had constipation since, prior visit few weeks ago for constipation requiring enema. Hypertensive but otherwise normal vitals here. Physical
exam as above. His surgeon referred him to the ER, recommended follow-up x-ray to evaluate for any signs of obstruction and likely treatment with enema necessary once again. Will send some basic screening labs as well. May need admission for
Gastrografin enema to evaluate for sigmoid stricture�will discuss with further surgeon pending initial assessment and treatment.
X-ray reviewed by me shows dilated loops of bowel in the left upper quadrant similar to prior imaging with no signs of acute obstruction overall suspect constipation will treat with enema here. Will discuss with colorectal surgeon.
Discussed case with colorectal surgery: If able to relieve constipation with milk of molasses enema here he recommended following up with a Gastrografin enema to evaluate for signs of stricture. Will discuss with radiologist.
Gastrografin enema showed no stricture but likely impacted stool at the splenic flexure. Discussed with colorectal surgery recommended admission to hospitalist service with GI consult and aggressive bowel regimen. Discussed with hospitalist for
admission.
Chronic conditions affecting care:
Multiple prior abdominal surgeries
Acute Exacerbation and/or Progression of Chronic Illness: HTN
*Radiology
Radiology exam reviewed: preliminary read by ED provider and radiology read reviewed
*Pulse Oximetry
SaO2: 96
Oxygen Mode of Delivery: Room air
Patient hypoxic: no (96%)
*Critical Care Note
Total Time (30-74mins, 75-104mins- exclusive of procedures): Not Applicable
Data Reviewed
Review of Other/Old Records Reveals: Labs, Records and Radiology Studies
Source: patient and records
Patient Management
Discussion with other providers: Hospitalist (Discussed with hospitalist), Silicator (Discussed with colorectal surgeon) and Radiologist (Discussed with radiologist)
Escalation/DeEscalation of care consider admission/obs:
Admission indicated
ED Attending Note
-
Portions of this chart may have been created with voice recognition software.� Occasional wrong word or��sound alike� substitutions may have occurred due to the inherent limitations of voice recognition software.
Discharge Plan
Departure
Patient Disposition: Admit
Date of Disposition: 07/08/25
Time of Disposition: 12:11
Admit to doctor: Elijah
Presentation/result/management discussed w/ accepting MD/DO: Hospitalist
Discharge Problem:
Constipation
Prescriptions:
No Action
quetiapine 400 mg Tablet
400 mg PO HS
sertraline [Zoloft] 100 mg Tablet
200 mg PO DAILY
mirtazapine [Remeron] 30 mg Tablet
30 mg PO HS
multivitamin Tablet
1 tab PO DAILY
Vitamin B-6
1 tab PO DAILY
dextroamphetamine-amphetamine 25 mg Capsule,Extended Release 24hr
25 mg PO DAILY
acetaminophen [acetaminophen] 325 mg tablet
650 mg PO Q4HPRN PRN (Reason: mild pain) Qty: 1 0RF
oxycodone 5 mg tablet
5 mg PO Q4HPRN PRN (Reason: breakthrough/severe pain) Qty: 15 0RF
amlodipine 5 mg tablet
5 mg PO DAILY Qty: 30 0RF
Referrals:
NADIYA MCDANIELS [Other]
Interventions
Interventions:
*Risk Screen - Suicide Last Done: 07/08/25 09:03
*General Assessment Last Done: 07/08/25 09:02
*Neglect/Abuse Screening Last Done: 07/08/25 09:03
*ED- Fall Risk Assessment Last Done: 07/08/25 09:02
*ED COVID-19 Vaccine History Last Done: 07/08/25 09:02
*ED Influenza Vaccine History Last Done: 07/08/25 09:02
YI-Gnkfnm-Cpnznhjmmc Assessment Last Done: 07/08/25 09:16
Discharge Date and Time
Print Language: TAJIK
--- NOTE | 2025-07-08 08:47 | EDRN ---
Dr. Chaney in room w/ pt at this time.
[2025-07-08 09:19] LABS: Hematocrit 33.1 % (39.0-52.0); Hemoglobin 10.3 g/dL (13.0-18.0); Mean Corp Hgb Conc. 31.1 g/dL (33.0-37.0); Mean Corpuscular Volume 85.3 fL (80.0-94.0); Nucleated Red Blood Cells % 0 % (-); Platelet Count 238 10^3/uL (130-400); Red Cell Dist. Width 18.2 % (11.5-14.5)
--- NOTE | 2025-07-08 09:44 | EDRN ---
SST blood tube for CMP was redrawn and sent for hemolysis.
--- NOTE | 2025-07-08 09:46 | EDRN ---
Pt ordered milk and molasses enema at this time.
[2025-07-08 10:12] LABS: ALT (SGPT) 11 U/L (0-50); AST (SGOT) 18 U/L (17-59); Albumin 3.6 g/dl (3.5-5.0); Alkaline Phosphatase 58 U/L (38-126); Blood Urea Nitrogen 24 mg/dl (9-20); Calcium 9.0 mg/dl (8.4-10.2); Carbon Dioxide 28 mmol/L (22-30); Chloride 106 mmol/L (98-107); Estimated Creatinine Clearance 67 ml/min; Glucose 90 mg/dl (70-99); Potassium 4.3 mmol/L (3.5-5.1); Sodium 139 mmol/L (135-145); Total Protein 6.5 g/dl (6.3-8.2); eGFR > 60.00
--- NOTE | 2025-07-08 10:57 | EDRN ---
Pt presently attempting BM in [facility] at this time.
--- NOTE | 2025-07-08 11:11 | EDRN ---
Pt in [facility] and stated he had an 'avalanche' very large BM on toilet. Pt stated he flushed it. Clerk Maldonado was called to arrange gastrograffin study at this time.
--- NOTE | 2025-07-08 12:35 | EDRN ---
Resident w/ hospitalist group Keny Parker MD in to see pt.
--- NOTE | 2025-07-08 12:36 | HPS.HSE ---
Addendum entered and electronically signed by Alicia Nava MD 07/08/25 13:58:
This is an addendum to the H&P written by Kimberly Becerra on 07/08/2025. �Patient seen and examined independently with resident.
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
prolapse s/p colotomy takedown in 12/12, incisional hernia 06/05/2025 s/p mesh, achalasia, anxiety/depression, presenting with severe constipation since recent hernia repair. �Came to ER in 06/12 for constipation treated with milk of molasses enema
with good relief. �No bowel movement 4 to 5 days. �No nausea or vomiting. �No abdominal pain. �No fevers or chills.
Has tried miralax and later dulcolox without improvement.�
Vital signs unremarkable. �On examination abdomen soft nondistended nontender. �Rectal exam showed no stool in the rectal vault.
Labs show stable leukopenia 4.3. �Stable anemia 10.3.
CT scan from 06/12 shows moderate to large amount of stool within the rectum, mild stranding of the fat adjacent to the rectum suggesting mild stercoral colitis. �Moderate to large amount of stool within the rest of the colon compatible with
constipation. �Cecum is clear in the left upper quadrant as well as ileocecal valve. �Contrast passed through the ileocecal valve into the cecum. �Edema within the mesentery in the left upper quadrant unclear urology. �No evidence of bowel
obstruction. �Crescentic fluid collection within the anterior abdominal wall likely postsurgical seroma.
Chest/abdomen x-ray today shows mild to moderate elevation of the left hemidiaphragm with a air-filled colon underneath the left hemidiaphragm.
Patient with severe contipation. Colorectal recommending gastrograffin enema which showed no stricture and resulted in large bowel movement and improvement in symptoms. Start miralax BID and PRN dulocolox for constipation prevention.
Original Note:
Family Physician
-
Family Physician: NADIYA MCDANIELS
Chief Complaint
-
Constipation
History of Present Illness
75-year-old male with complex history of prior bowel surgeries presents today reporting of constipation for several weeks. Patient notes that first he had repair for incarcerated umbilical hernia with abscess in March 2024. He then had left
inguinal hernia repair in May 2024. Patient also had he underwent Hartmen's resection with colostomy for sigmoid volvulus in Aug 2024, complicated with colostomy prolapse and had robotic colostomy reversal in November of 2024 . On he underwent
repair for acutely incarcerated umbilical hernia subsequent robotic inguinal hernia repair.
In the ED patient was treated with enema which helped him to have a bowel movement this morning. He is passing gas. He notes of having liquidy stool for the past few days. He denies fever/chills/nausea/vomiting. He denies a none of the laxatives
have helped him have a bowel movement. He has not been on permanent bowel regimen. He has tried MiraLAX first which did not help and he was on Senokot which did not help either. He was unsuccessful to trying enemas at home.
Medical History
Past Medical History
Past Medical History: Reports HTN and Psychiatric (Anxiety/depression)
Past Surgical History: Reports Bowel Resection
Social History
Tobacco: Non-smoker
Alcohol: None
Drug: None
Personal:
Living: With Family
Employment: Retired
Family History
Family History: Not pertinent
Allergies / Home Medications
Allergies reflects when Allergies were last updated in [facility].
Home Medications with original date entered in [facility]
Allergy/Medication List:
Allergies
Allergy/AdvReac Type Severity Reaction Status Date / Time
No Known Allergies Allergy Verified 07/08/25 08:25
Home Medications
quetiapine 400 mg tablet 400 mg PO HS Mental Health/Anxiety 03/19/24
mirtazapine 30 mg tablet (Remeron) 30 mg PO HS Mental Health/Anxiety 06/12/24
sertraline 100 mg tablet (Zoloft) 200 mg PO DAILY Mental Health/Anxiety 06/12/24
Vitamin B-6 1 tab PO DAILY Supplement 11/27/24
multivitamin 1 tab PO DAILY Supplement 11/27/24
dextroamphetamine-amphetamine ER 25 mg 24hr capsule,extend release 25 mg PO DAILY 05/29/25
acetaminophen 325 mg tablet 650 mg (2 x 325 mg) PO Q4HPRN PRN mild pain #1 tab 06/07/25
amlodipine 5 mg tablet 5 mg PO DAILY #30 tabs 06/07/25
oxycodone 5 mg tablet 5 mg PO Q4HPRN PRN breakthrough/severe pain #15 tabs 06/07/25
Review of Systems
-
A 12 point ROS was completed and negative except as noted: Yes
Physical Exam
Vital Signs
Vital Signs
Temp Pulse Resp BP Pulse Ox
98.1 F 73 16 167/103 99
07/08/25 08:25 07/08/25 12:04 07/08/25 12:04 07/08/25 12:04 07/08/25 12:04
Physical Exam
General: Comfortable and Conversant
HEENT: NormoCephalic and Anicteric
Respiratory: Clear
Cardiac: S1/S2 and Regular Rhythm
GI: Soft, Non Distended, Normal Bowel Sounds and Tender (mild left UQ)
Musculoskeletal: No Clubbing, No Cyanosis and No Edema
Skin: Warm and Dry
Neuro: AO x 3
Hematologic/Lymphatic: No Lymphadenopathy
Psych: Calm
Laboratory Results
-
07/08/25 09:12
07/08/25 09:42
Laboratory Results
Total Bilirubin 0.2 mg/dl (0.2-1.3) 07/08/25 09:42
AST 18 U/L (17-59) 07/08/25 09:42
ALT 11 U/L (0-50) 07/08/25 09:42
Alkaline Phosphatase 58 U/L (38-126) 07/08/25 09:42
Data Reviewed
-
CT Scan: Report Reviewed by me and Discussed with Physician
Lab Data: Labs Reviewed by me and Discussed with Physician
Impression/Plan
-
IMPRESSION:
Acute on chronic constipation
History of recent incisional hernia repair
S/p Jamison's resection complicated with colostomy prolapse
History of achalasia
Essential hypertension
History of depression/anxiety
PLAN:
#Acute on chronic constipation
Admit to observation
Prior history of bowel surgeries
+passing gas, +BS
Treated with enema in the ED this morning
Start MiraLAX twice daily and and Dulcolax 10 mg as needed
No evidence of obstructing stricture or contrast leak with barium enema
Consult GI as per request of colorectal
Hold oxycodone
Chest/abdominal x-ray- Mild to moderate elevation of the left hemidiaphragm, with air-filled colon underneath the left hemidiaphragm. Large amount of stool within the colon, compatible with the given history of constipation. Mild gaseous distention
of loops of bowel in the left upper quadrant. No evidence of free intraperitoneal air.
#Essential hypertension
Continue home medications
#History of depression/anxiety
Continue home medications
#History of recent incisional hernia repair
#S/p Jamison's resection complicated with colostomy prolapse
#History of achalasia
Full code
regular diet
DVT prophylaxis -Lovenox
--- NOTE | 2025-07-08 12:58 | EDCM ---
Reviewed chart and met with pt bedside in ED. Pt lives alone, 1 story home with 3 AJ.
Independent in ADLs, personal care and ambulation at baseline. His sister and brother both live within 5 minutes of him, they all help each other out.
Confirms prescription coverage.
Hx [facility] after abdominal surgery, no hx SNF.
PCP: Gilmar Arthur
Pharmacy: [facility]
Anticipate discharge home, CM will continue to follow for all discharge planning needs
--- NOTE | 2025-07-08 13:35 | EDRN ---
Pt OOB to [facility] at this time.
--- NOTE | 2025-07-08 14:00 | EDRN ---
Addendum entered by Marina Haile RN 07/08/25 14:03:
Dr. Shirley.
Original Note:
Resident MD for GI in room w/ pt at this time.
--- NOTE | 2025-07-08 15:31 | CON.CRS ---
Consultation
-
Date/Time Consultation Requested: 07/08/25
Date/Time Consultation Performed: 07/08/25
Performing Provider: Kati
Reason for Consultation: constipation
Medical History
-
Chief Complaint: constipation
History of Present Illness:
75 yo M well known to me with constipation issues. 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 More recently he had an incisional hernia repair 06/05/[address] Charles. He has subsequently
become quite constipated and came to the ER a couple times for this reason. Came in last night for the same. Prior CTAP on 06/12/25 was FOS. Plain films earlier today FOS as well. Had M & M enema with results. Gastrografin enema without
obstruction or anastomotic stricture. FOS proximally radiographically.
Past Medical History
Past Medical History: Other (anxiety/depression)
Past Surgical History: Other (Saul; Saul takedown; hernia repairs)
Social History
Tobacco: Non-Smoker
Alcohol: None
Personal:
Family History
Family History: Reviewed & Not Pertinent
Allergies / Home Medications
Allergy/AdvReac Type Severity Reaction Status Date / Time
No Known Allergies Allergy Verified 07/08/25 08:25
�Medication �Instructions �Recorded �Confirmed �Type
quetiapine 400 mg tablet 400 mg PO HS Mental Health/Anxiety 03/19/24 07/08/25 History
mirtazapine 30 mg tablet (Remeron) 30 mg PO HS Mental Health/Anxiety 06/12/24 07/08/25 History
sertraline 100 mg tablet (Zoloft) 200 mg PO DAILY Mental 06/12/24 07/08/25 History
Health/Anxiety
multivitamin (Daily Value tablet) 1 tab PO DAILY Supplement 11/27/24 07/08/25 History
dextroamphetamine-amphetamine ER 25 mg PO DAILY Mental 05/29/25 07/08/25 History
25 mg 24hr capsule,extend release Health/Anxiety
amlodipine 5 mg tablet 5 mg PO DAILY Blood Pressure 07/08/25 07/08/25 History
Review of Systems
-
A 10 point review of systems was completed, and was negative except as per HPI.
Physical Exam
Vital Signs
Temp 98.1 F 07/08/25 14:42
Pulse 84 07/08/25 14:42
Resp Rate 18 07/08/25 14:42
Blood pressure 136/95 07/08/25 14:42
SaO2 96 07/08/25 14:56
07/07/25 07/08/25 07/09/25
06:59 06:59 06:59
Actual Weight 64.41 kg
Body Mass Index (BMI) 20.4
Lab Results / Allergies
07/08/25 09:12
07/08/25 09:42
WBC 4.3 10^3/uL (4.8-10.8) L 07/08/25 09:12
Hgb 10.3 g/dL (13.0-18.0) L 07/08/25 09:12
Hct 33.1 % (39.0-52.0) L 07/08/25 09:12
Plt Count 238 10^3/uL (130-400) 07/08/25 09:12
Abs Immat Gran (auto) 0.0 10^3/uL (0-0.05) 07/08/25 09:12
Neutrophils % 47.3 % (42.2-75.2) 07/08/25 09:12
Allergy/AdvReac Type Severity Reaction Status Date / Time
No Known Allergies Allergy Verified 07/08/25 08:25
Physical Exam
General: Well Developed
Respiratory: Clear
Cardiac: S1/S2
GI: Soft, Non Tender and Non Distended
Data Reviewed
-
Radiology: Image Personally Visualized and interpreted and Report Reviewed by me
CT Scan: Image Personally Visualized and interpreted and Report Reviewed by me
Labs: Labs Reviewed by me
Assessment / Plan
-
75 yo M with history of sigmoidectomy for volvulus and hernia surgeries with worsening constipation s/p most recent surgery. No evidence for obstruction or recurrent volvulus. Will order a full bowel prep to clean his colon out from above. Agree
with obtaining GI input to help with optimization of his bowel regimen.
[2025-07-08] MEDS: NULYTELY SOLUTION 4 LITERS PO (15:59)
--- NOTE | 2025-07-08 16:23 | PTCARENOTE ---
pt new admission from ER. pt is AAO*3, Vss, room air. pt denies any pain. pt received M&M enema w/ relief. pt started on colon prep for wash out. pt on regular diet. call [facility] within the reach. plan of care ongoing.
[2025-07-08] MEDS: LOVENOX 40 MG SC (17:03)
[2025-07-08] MEDS: SEROQUEL 400 MG PO (21:12)
[2025-07-08] MEDS: REMERON 30 MG PO (21:12)
--- NOTE | 2025-07-09 06:15 | PTCARENOTE ---
pt orded 4 L colyte bowel prep to empty out colon. encouraging pt to drink bowel prep throughout shift. pt stating he 'cant do that much liquid' and its 'just making him pee.' pt educated on the bowel prep. pt drank 2-3 cups throughout night. [employer]PHOL[employer]ER
made aware, no new orders at this time. plan of care ongoing.
[2025-07-09 07:35] VITALS: BP 133/81
[2025-07-09] MEDS: THERAGRAN 1 TABLET PO (08:32)
[2025-07-09] MEDS: NORVASC 5 MG PO (08:32)
[2025-07-09] MEDS: ZOLOFT 200 MG PO (08:32)
--- NOTE | 2025-07-09 09:08 | W.PN.CRS1 ---
Today's Communication / Plan
-
miralax daily
finish prep
no plans for surgery
Assessment/Plan
-
75 yo M with history of sigmoidectomy for volvulus and hernia surgeries with worsening constipation s/p most recent surgery
Vitals: normal
WBC: 4.3, Hgb 10.3
-Finish bowel prep (patient only finished half)
-Start daily Miralax
-No plans for surgery at this time
Subjective Data
Subjective Data
Date of Service: July 09, 2025
Objective Data
-
Vital Signs
Temp Pulse Resp BP Pulse Ox
98.0 F 65 16 133/81 96
07/09/25 07:35 07/09/25 08:32 07/09/25 07:35 07/09/25 08:32 07/09/25 07:35
Intake & Output
07/08/25 07/09/25 07/10/25
06:59 06:59 06:59
Intake Total 480 / 480
Balance 480 / 480
Intake:
Oral fluids 480 / 480
Other:
Number of approximated MODERATE 1
amounts of urine
Lab Results
07/08/25 09:12
07/08/25 09:42
Physical Exam
-
Abdomen: Soft, Non Distended and Tender (mild)
Skin: Warm and Dry
[2025-07-09] MEDS: MIRALAX 17 GRAMS PO (10:00)
--- NOTE | 2025-07-09 11:40 | W.PN.HOSP.TC ---
Today's Communication/Plan
-
Assessment / Plan
Assessment / Plan
acute on chronic constipation
enema x2
golytley
discussed with gi double dose miralax and senna at home
outpt gi ofllow up, plan to bring forward appointment with dr. gay
htn
contineu antihypertensives
hx of depression and anxiety
contiue home meds
Anticipated Discharge: > 48 hours
Subjective/Interval History
-
Date of Service: July 09, 2025
seen and examined. no new complaints. no acute overnight events
Objective Data
-
Vital Signs:
Vital Signs
Temp Pulse Resp BP Pulse Ox
98.0 F 65 16 133/81 96
07/09/25 07:35 07/09/25 08:32 07/09/25 07:35 07/09/25 08:32 07/09/25 07:35
I&O
07/08/25 07/09/25 07/10/25
06:59 06:59 06:59
Intake Total 480 / 480
Balance 480 / 480
--- NOTE | 2025-07-09 12:08 | CM ---
CALIX form given and placed on chart.
Pt declined healthcare decisions packet.
Undergoing GI workup. Will follow for dc needs
Plan: Home no needs at this time.
[2025-07-09 15:40] VITALS: BP 134/73
[2025-07-09] MEDS: LOVENOX 40 MG SC (17:28)
--- NOTE | 2025-07-09 17:52 | PTCARENOTE ---
pt encouraged to take more prep. pt refused. pt states,'I am working on it with the 1st glass that was poured this morning.'
[2025-07-09 19:06] LABS: Hepatitis C Antibody Negative (Negative)
[2025-07-09] MEDS: REMERON 30 MG PO (21:52)
[2025-07-09] MEDS: SEROQUEL 400 MG PO (21:52)
[2025-07-09 23:08] VITALS: BP 112/73
--- NOTE | 2025-07-10 06:09 | PTCARENOTE ---
continued to encourage pt to drink more prep throughout shift. pt states, 'i have a small stomach i cannot drink a lot.' pt educated on prep.
[2025-07-10 07:54] VITALS: BP 137/86
--- NOTE | 2025-07-10 09:15 | W.PN.CRS1 ---
Today's Communication / Plan
-
magnesium citrate x 2
Assessment/Plan
-
75 yo M with history of sigmoidectomy for volvulus and hernia surgeries with worsening constipation s/p most recent surgery
Vitals: normal
No labs today
-Magnesium citrate x 2
-Continue daily Miralax
-No plans for surgery at this time
-If no BM after magnesium citrate, recommend GI consult
Subjective Data
Subjective Data
Date of Service: July 10, 2025
Patient states he drank 'as much prep as he could'. Denies nausea or vomiting. He is passing flatus but still no bowel movements. Not bloated. He is hungry.
Objective Data
-
Vital Signs
Temp Pulse Resp BP Pulse Ox
97.8 F 69 18 137/86 95
07/10/25 07:54 07/10/25 07:54 07/10/25 07:54 07/10/25 07:54 07/10/25 07:54
Intake & Output
07/09/25 07/10/25 07/11/25
06:59 06:59 06:59
Intake Total 480 / 480 1200 / 1200
Balance 480 / 480 1200 / 1200
Intake:
Oral fluids 480 / 480 1200 / 1200
Other:
How many times incontinent 3
MODERATE amount urine
Number of approximated MODERATE 1 1 1
amounts of urine
Lab Results
07/08/25 09:12
07/08/25 09:42
Physical Exam
-
General: No Acute Distress and AOx3
Abdomen: Soft, Non Distended and Non Tender
Skin: Warm and Dry
[2025-07-10] MEDS: MIRALAX 17 GRAMS PO ×3 (09:46→20:31)
[2025-07-10] MEDS: THERAGRAN 1 TABLET PO (09:50)
[2025-07-10] MEDS: NORVASC 5 MG PO (09:50)
[2025-07-10] MEDS: FLUSH (NSS) 1 FLUSH IV (09:50)
[2025-07-10] MEDS: ZOLOFT 200 MG PO (09:50)
[2025-07-10] MEDS: CITROMA 300 ML PO ×2 (09:52→14:44)
--- NOTE | 2025-07-10 11:12 | W.PN.HOSP.TC ---
Today's Communication/Plan
-
Assessment / Plan
Assessment / Plan
acute on chronic constipation
enema x2
david
discussed case with colorectal surgery, added mag citrate x2
-no operative intervention
-dc once he has a bm, concern for sterocoral colitis
discussed with gi double dose miralax and senna at home
outpt gi ofllow up, plan to bring forward appointment with dr. gay
htn
contineu antihypertensives
hx of depression and anxiety
contiue home meds
Anticipated Discharge: 24 - 48 hours
Subjective/Interval History
-
Date of Service: July 10, 2025
seen and examined. no new complaints. no acute overnight events
Objective Data
-
Vital Signs:
Vital Signs
Temp Pulse Resp BP Pulse Ox
97.8 F 69 18 137/86 95
07/10/25 07:54 07/10/25 09:50 07/10/25 07:54 07/10/25 09:50 07/10/25 09:41
I&O
07/09/25 07/10/25 07/11/25
06:59 06:59 06:59
Intake Total 480 / 480 1200 / 1200
Balance 480 / 480 1200 / 1200
Physical Exam
-
General: Well Nourished, No Apparent Distress and Comfortable
HEENT: Normocephalic and Atraumatic
Respiratory: Clear to Auscultation
Cardiac: Regular Rhythm and S1/S2
GI: Soft, Nontender, Nondistended and Normal Bowel Sounds
Musculoskeletal: No Clubbing and No Cyanosis
Skin: Warm and Dry
Neuro: Awake, Alert and AO x 3
Psych: Calm
[2025-07-10 15:38] VITALS: BP 140/87
--- NOTE | 2025-07-10 16:35 | PTCARENOTE ---
Pt AAO x3, CERNA well, OOB in room/[place], randall well. VSS. On room air- pulse ox 98%, no SOB noted. Abd soft, randall reg diet; appetite fair; refused lunch d/t being 'too full' after taking Miralax/Mg Citrate doses. Voids in BR without difficulty.
resting in bed at present. Will continue to monitor.
--- NOTE | 2025-07-10 17:29 | CM ---
Chart reviewed. Pt had small loose stool. No change in DC plan
Plan: DC to home no needs
[2025-07-10] MEDS: LOVENOX 40 MG SC (17:32)
[2025-07-10] MEDS: TUMS CHEWABLE TABLET 200 MG PO (17:38)
[2025-07-10] MEDS: SENOKOT 17.2 MG PO (21:49)
[2025-07-10] MEDS: REMERON 30 MG PO (21:49)
[2025-07-10] MEDS: SEROQUEL 400 MG PO (21:49)
[2025-07-10 23:55] VITALS: BP 109/70
[2025-07-11 07:00] VITALS: BP 139/84
[2025-07-11] MEDS: ZOLOFT 200 MG PO (08:24)
[2025-07-11] MEDS: NORVASC 5 MG PO (08:25)
[2025-07-11] MEDS: THERAGRAN 1 TABLET PO (08:26)
[2025-07-11] MEDS: MIRALAX 17 GRAMS PO (08:32)
--- NOTE | 2025-07-11 10:03 | W.PN.CRS1 ---
Addendum entered and electronically signed by Uche Carrion MD 07/11/25 15:19:
Had several large BMs yesterday. Denies any N/V or any abdominal pain.
AFVSS, ABD soft, nondistended, nontender
� Continue regular diet
� Continue bowel regiment; follow-up with GI as outpatient regarding constipation; follow-up with Kati as scheduled
� Colorectal to sign off, please call for any questions or concerns
Original Note:
Today's Communication / Plan
-
dispo planning
Assessment/Plan
-
75 yo M with history of sigmoidectomy for volvulus and hernia surgeries with worsening constipation s/p most recent surgery
AFVSS
+BM x3 yesterday
No n/v. Tolerating diet. No pain
Plan
-Continue current diet
-Continue PO bowel regimen
-No plans for surgery at this time
-Ok for d/c from surgical standpoint. Discussed case with hospitalist.
Subjective Data
Subjective Data
Date of Service: July 11, 2025
Pt seen and examined at bedside with Dr. Carrion. Denies n/v. Passing flatus. 3 large loose stools yesterday. Denies pain. Tolerating diet.
Objective Data
-
Vital Signs
Temp Pulse Resp BP Pulse Ox
97.8 F 70 18 139/84 96
07/11/25 07:00 07/11/25 08:25 07/11/25 07:00 07/11/25 08:25 07/11/25 07:00
Intake & Output
07/10/25 07/11/25 07/12/25
06:59 06:59 06:59
Intake Total 1200 / 1200 1500 / 1500
Balance 1200 / 1200 1500 / 1500
Intake:
Oral fluids 1200 / 1200 1500 / 1500
Other:
How many times incontinent 3
MODERATE amount urine
Number of approximated MODERATE 1 2
amounts of urine
Number of unmeasured liquid
stools
Rectum 1
Lab Results
07/08/25 09:12
07/08/25 09:42
Physical Exam
-
General: No Acute Distress
HEENT: Grossly Normal
Abdomen: Soft, Non Distended and Non Tender
Skin: Warm and Dry
--- NOTE | 2025-07-11 10:06 | CM ---
Patient discharged today
IMM n/a-OBS
no needs
PLAN: Home, no needs
drove self
--- NOTE | 2025-07-11 10:53 | W.DCSUMMARY ---
Discharge Summary
Discharge Data
Date of Admission: 07/08/25
Date of Discharge: 07/11/25
-
Pending Results: No
Hospital Course
75-year-old male with complex history of prior bowel surgeries
Presented with acute on chronic constipation. Received Gastrografin enema was GoLytely along with mag citrate. Improved symptomatology with multiple BM's. Was evaluated by colorectal surgery no acute surgical interventions. Spoke with GI at
length. Recommended MiraLAX twice a day along with senna double straight at night and outpatient GI follow-up.
Barium Enema
IMPRESSION:
No evidence for obstructing stricture or contrast leak at the sigmoid anastomosis..
Chest/abd xray
IMPRESSION: Mild to moderate elevation of the left hemidiaphragm, with air-filled colon underneath the left hemidiaphragm.
Large amount of stool within the colon, compatible with the given history of constipation.
Mild gaseous distention of loops of bowel in the left upper quadrant.
No evidence of free intraperitoneal air.
Seen and examed on the day of discharge which was 07/11. No new complaints. No acute overnight evetns
NAD
Scleral Anicteric
MMM
No JVD
CTABL
RRR, S1/S2
Soft, NT, ND, BS+
Warm, Dry
AAOx3
Calm
More than 30 minutes spent in discharge including
Final examination of the patient
Summarizing hospital stay
Instructions for continuing care to all relevant caregivers
Preparation of discharge records, prescriptions, and referral forms
Total time spent (in minutes): 33mins
Discharge Plan
-
Patient Disposition: Home (Routine Discharge)
Discharge Diagnosis/Procedures: Acute on chronic constipation
Condition: Good
Diet: As tolerated
Activity: As tolerated
Activity Restrictions/Additional Instructions:
Presented with acute on chronic constipation. Received Gastrografin enema was GoLytely along with mag citrate. Improved symptomatology with multiple BM's. Was evaluated by colorectal surgery no acute surgical interventions. Spoke with GI at
length. Recommended MiraLAX twice a day along with senna double straight at night and outpatient GI follow-up.
Referrals:
Timothy Woo DO [Active, Gastroenterology] - in two to three weeks
Gilmar Arredondo MD [Family Provider, [facility]]
Prescriptions:
New
bisacodyl 5 mg Tablet,Delayed Release (Dr/Ec)
10 mg PO DAILYPRN PRN (Reason: chronic constipation) Qty: 20 0RF
sennosides [Betina-helene] 8.6 mg Tablet
17.2 mg PO HS Qty: 30 0RF
polyethylene glycol 3350 17 gram Powder In Packet
17 g PO BID Qty: 60 0RF
Continued
quetiapine 400 mg Tablet
400 mg PO HS
sertraline [Zoloft] 100 mg Tablet
200 mg PO DAILY
mirtazapine [Remeron] 30 mg Tablet
30 mg PO HS
multivitamin [Daily Value] Tablet
1 tab PO DAILY
dextroamphetamine-amphetamine 25 mg Capsule,Extended Release 24hr
25 mg PO DAILY
amlodipine 5 mg tablet
5 mg PO DAILY
Discharge Orders:
Discharge Patient (As Directed); Ordered 07/11/25
Ordered By: Golden Ferrer
Discharge Date and Time
Print Language: CYPRIOT
[2025-07-11 11:10] VITALS: BP 131/75
== END 2025-07-11 12:44 | disposition home or self-care (01) ==
LOC: 4 EAST ACU 13:03
PROVIDERS: ADMITTING PHYSICIAN Hospitalist; ATTENDING PHYSICIAN Hospitalist; CONSULT PHYSICIAN Surgery; EMERGENCY PHYSICIAN Emergency Medicine; FAMILY PHYSICIAN Family Medicine
DX: K59.09 Other constipation (principal); F32.A Depression, unspecified; R14.3 Flatulence; I10 Essential (primary) hypertension; F41.9 Anxiety disorder, unspecified; Z90.49 Acquired absence of other specified parts of digestive tract; Z98.890 Other specified postprocedural states; Z60.2 Problems related to living alone
CPT/HCPCS: 74022; 74270; 80053; 85025; 86803; 99285; G0378